=== PATIENT | female | born 1980 | race African-American/Black ===

== ENCOUNTER 2022-12-22 13:45 | Inpatient (IN) | payer OTHER ==
[~2022-12-22] VITALS: Ht 165.1 cm; Wt 62.0 kg
[~2022-12-22 13:45] MED LIST: AMLO-258 PO; AMYL1CAP63 PO; DIPH25CA85 PO; HYDR-4723 PO; INSU100V37 SQ; LISI-893 PO; QUET200T PO; RISP2TAB45 PO; TRAZ-257 PO
[2022-12-22] MEDS ORDERED: SODIUM CHLORIDE 0.9% 1,000 ML IV ONE ×2 (14:30→18:00)
[2022-12-22] MEDS ORDERED: INSULIN REGULAR, HUMAN 100 UNITS/ML IVP ONE (14:30)
[2022-12-22 14:41] LABS: GLUCOMETER DEV NAME(LOC) ERT.5; GLUCOSE,POINT OF CARE > 600 MG/DL (70-110)
[2022-12-22 14:59] LABS: BASOPHILS % (AUTO) 0.4 % (0.0-2.0); EOSINOPHILS % (AUTO) 1.9 % (1.0-6.0); HEMATOCRIT 38.5 % (36-46); HEMOGLOBIN 12.5 g/dL (12.0-16.0); LYMPHOCYTES # (AUTO) 2.7 K/uL (1.0-4.8); LYMPHOCYTES % (AUTO) 27.7 % (22.0-44.0); MEAN CORPUSCULAR HEMOGLOBIN 28.6 pg (26.0-34.0); MEAN CORPUSCULAR HGB CONC 32.4 G/dL (31.0-37.0); MEAN CORPUSCULAR VOLUME 88 fL (80-100); MONOCYTES # (AUTO) 0.5 K/uL (0.1-1.0); MONOCYTES % (AUTO) 5.6 % (2.0-9.0); NEUTROPHILS # (AUTO) 6.3 K/uL (1.8-7.7); NEUTROPHILS % (AUTO) 64.4 % (40.0-70.0); PLATELET COUNT (AUTO) 162 K/uL (150-450); RED BLOOD CELL COUNT(AUTO) 4.37 MIL/uL (4.00-5.20); RED CELL DISTRIBUTION WIDTH 14.5 % (11.5-14.5)
[2022-12-22 15:15] LABS: ALANINE AMINOTRANSFERASE 26 U/L (12-78); ALBUMIN 3.4 g/dL (3.4-5.0); ALKALINE PHOSPHATASE 103 U/L (46-116); ANION GAP 11 mmol/L (8-16); ASPARTATE AMINOTRANSFERASE 12 U/L (15-37); BILIRUBIN,TOTAL 0.2 mg/dL (0.1-1.0); CARBON DIOXIDE 23 mmol/L (22-29); CHLORIDE 97 mmol/L (98-107); CREATININE 0.99 mg/dL (0.60-1.30); GLOMERULAR FILTR. RATE CALC > 60 mL/min (>60); POTASSIUM 4.3 mmol/L (3.5-5.1); SODIUM SERUM 131 mmol/L (136-145); TOTAL PROTEIN, SERUM 7.6 g/dL (6.4-8.2); UREA NITROGEN, BLOOD 10 mg/dL (7-18)
[2022-12-22 15:19] LABS: GLUCOSE,RANDOM 741 mg/dL (70-110)
[2022-12-22 15:22] LABS: ACETONE,BLOOD NEGATIVE (NEGATIVE)
[2022-12-22 15:46] LABS: ABG BASE EXCESS -4.9 mmol/L (-2.0-3.0); ABG METHEMOGLOBIN 0.2 % (0.0-1.5); ABG OXYGEN CONTENT 16.8 mL/dL (15.0-23.0); ABG OXYGEN SATURATION 96.8 % (95.0-98.0); ABG OXYHEMOGLOBIN 91.2 % (94.0-100.0); ABG PCO2 36 mmHg (35-45); PO2, ARTERIAL BG 93.5 mmHg (88.0-96.0); SOURCE, BLOOD GAS ARTERIAL; TEMPERATURE, FAHRENHEIT, BG 99.9 FAHREN (96.0-98.6)
[2022-12-22 15:47] LABS: ABG A-A DIFF O2 12.7 mmHg (10-20.0); ABG CARBOXYHEMOGLOBIN 5.6 % (0.0-1.5); SITE, BLOOD GAS LFT RADIAL
[2022-12-22 15:48] LABS: O2 DEVICE,BLOOD GAS ROOM AIR (ROOM AIR)
[2022-12-22 15:54] LABS: APPEARANCE,URINE CLEAR (CLEAR); BILIRUBIN,URINE NEGATIVE (NEGATIVE); GLUCOSE, URINE (UA) >=1000 mg/dL (NEGATIVE); KETONES,URINE NEGATIVE (NEGATIVE); LEUKOCYTE ESTERASE ,URINE NEGATIVE (NEGATIVE); NITRATE,URINE NEGATIVE (NEGATIVE); OCCULT BLOOD,URINE NEGATIVE (NEGATIVE); PH,URINE 5.5 (5.0-8.0); PROTEIN,URINE NEGATIVE (NEGATIVE); UROBILINOGEN,URINE <=1.0 mg/dL (<=1.0)
[2022-12-22 16:00] LABS: AMPHET/METH SCREEN,URINE NEGATIVE (NEGATIVE); BARBITURATE SCREEN, URINE NEGATIVE (NEGATIVE); BENZODIAZEPINES SCREEN,URINE NEGATIVE (NEGATIVE); CANNABINOID SCREEN,URINE NEGATIVE (NEGATIVE); COCAINE SCREEN,URINE NEGATIVE (NEGATIVE); METHADONE SCREEN, URINE NEGATIVE (NEGATIVE); OPIATE SCREEN,URINE NEGATIVE (NEGATIVE); PHENCYCLIDINE SCREEN,URINE NEGATIVE (NEGATIVE)
[2022-12-22 16:02] LABS: BACTERIA,URINE None Seen /HPF (None Seen); RBC,URINE None Seen /HPF (0-2); WBC,URINE None Seen /HPF (0-5)
[2022-12-22] MEDS ORDERED: ONDANSETRON HCL 4 MG/2 ML VIAL IVP ONE (16:15)
[2022-12-22] MEDS ORDERED: PB/HYOSCY/ATR/SCOP/LIDO/MAALOX 55 ML BOTTLE PO ONE (16:15)
[2022-12-22 16:41] LABS: HCG,QUANTITATIVE 2 mIU/mL (0-6); LIPASE 53 U/L (73-393)
[2022-12-22] MEDS ORDERED: ACETAMINOPHEN 325 MG TABLET PO PRN (18:00)
[2022-12-22] MEDS ORDERED: DEXTROSE 50%-WATER 25 GM/50 ML SYRINGE IVP PRN (18:00)
[2022-12-22] MEDS ORDERED: ONDANSETRON HCL 4 MG/2 ML VIAL IVP PRN (18:00)
[2022-12-22 18:21] LABS: GLUCOMETER DEV NAME(LOC) ERT.5; GLUCOSE,POINT OF CARE 327 MG/DL (70-110)
[2022-12-22 18:55] LABS: GLUCOSE,POINT OF CARE 347 MG/DL (70-110)
[2022-12-22] MEDS ORDERED: INSULIN GLARGINE,HUM.REC.ANLOG 100 UNITS/ML SQ SCH ×2 (21:00)
[2022-12-22 22:10] VITALS: BP 107/75
[2022-12-22] MEDS: DOCUSATE SODIUM 100 MG CAPSULE PO SCH (22:35)
[2022-12-22] MEDS: FAMOTIDINE 20 MG TABLET PO SCH (22:35)
[2022-12-22] MEDS: INSULIN LISPRO 100 UNITS/ML SQ PRN (22:36)
[2022-12-22] MEDS: MORPHINE SULFATE 2 MG/ML SYRINGE IVP PRN (22:42)
[2022-12-22] MEDS: HEPARIN SODIUM,PORCINE 5,000 UNITS/ML VIAL SQ SCH (22:47)
[2022-12-23] MEDS: MORPHINE SULFATE 2 MG/ML SYRINGE IVP PRN ×5 (03:35→21:02)
[2022-12-23 04:20] VITALS: BP 100/72
[2022-12-23] MEDS: INSULIN LISPRO 100 UNITS/ML SQ PRN ×3 (05:38→20:13)
[2022-12-23 07:11] VITALS: BP 104/71
[2022-12-23] MEDS: FAMOTIDINE 20 MG TABLET PO SCH ×2 (07:56→20:11)
[2022-12-23] MEDS: HEPARIN SODIUM,PORCINE 5,000 UNITS/ML VIAL SQ SCH ×2 (07:57→16:30)
[2022-12-23] MEDS: DOCUSATE SODIUM 100 MG CAPSULE PO SCH ×2 (07:57→20:11)
[2022-12-23 11:15] VITALS: BP 127/90
[2022-12-23] MEDS ORDERED: NALT50TA5 PO (11:49)
[2022-12-23] MEDS ORDERED: SERT-162 PO (11:49)
[2022-12-23] MEDS ORDERED: PALI234D IM (11:49)
[2022-12-23] MEDS ORDERED: GABA-1181 PO (11:49)
[2022-12-23 15:21] VITALS: BP 117/80
[2022-12-23] MEDS ORDERED: INSULIN LISPRO 100 UNITS/ML SQ ONE (17:30)
[2022-12-23 18:16] LABS: GLUCOMETER DEV NAME(LOC) 5S.1B; GLUCOSE,POINT OF CARE 262 MG/DL (70-110)
[2022-12-23 19:40] VITALS: BP 120/80
[2022-12-23] MEDS ORDERED: INSULIN GLARGINE,HUM.REC.ANLOG 100 UNITS/ML SQ SCH (21:00)
[2022-12-23 21:21] LABS: GLUCOMETER DEV NAME(LOC) 5N.2C; GLUCOSE,POINT OF CARE 332 MG/DL (70-110)
[2022-12-23 21:21] LABS: GLUCOMETER DEV NAME(LOC) 5N.2C; GLUCOSE,POINT OF CARE 528 MG/DL (70-110)
[2022-12-24 00:32] VITALS: BP 110/79
[2022-12-24] MEDS: MORPHINE SULFATE 2 MG/ML SYRINGE IVP PRN ×2 (02:00→08:04)
[2022-12-24 05:24] VITALS: BP 125/88
[2022-12-24] MEDS: INSULIN LISPRO 100 UNITS/ML SQ PRN ×4 (05:38→20:24)
[2022-12-24 07:46] VITALS: BP 106/73
[2022-12-24] MEDS: FAMOTIDINE 20 MG TABLET PO SCH ×2 (08:03→20:11)
[2022-12-24] MEDS: HEPARIN SODIUM,PORCINE 5,000 UNITS/ML VIAL SQ SCH ×3 (08:03→16:13)
[2022-12-24] MEDS: DOCUSATE SODIUM 100 MG CAPSULE PO SCH ×2 (08:06→20:11)
[2022-12-24] MEDS ORDERED: INSULIN GLARGINE,HUM.REC.ANLOG 100 UNITS/ML SQ SCH ×3 (09:00→21:00)
[2022-12-24] MEDS: SERTRALINE HCL 100 MG TABLET PO SCH (11:02)
[2022-12-24] MEDS: RisperiDONE 2 MG TABLET PO SCH ×2 (11:02→20:13)
[2022-12-24] MEDS: LORazepam 2 MG/ML VIAL IVP PRN ×2 (11:06→16:13)
[2022-12-24 11:15] VITALS: BP 119/80
[2022-12-24 15:14] VITALS: BP 140/80
[2022-12-24] MEDS: NICOTINE 21 MG/24 HOUR PATCH TD SCH (16:18)
[2022-12-24 20:29] VITALS: BP 142/99
[2022-12-24] MEDS ORDERED: TraZODone HCL 100 MG TABLET PO SCH (21:00)
[2022-12-24] MEDS ORDERED: QUEtiapine FUMARATE 200 MG TABLET PO SCH (21:00)
[2022-12-24 22:06] LABS: GLUCOMETER DEV NAME(LOC) 5N.2C; GLUCOSE,POINT OF CARE 311 MG/DL (70-110)
[2022-12-25 06:36] LABS: GLUCOMETER DEV NAME(LOC) 5N.1C; GLUCOSE,POINT OF CARE 353 MG/DL (70-110)
[2022-12-25 06:37] LABS: GLUCOMETER DEV NAME(LOC) 5N.1C; GLUCOSE,POINT OF CARE 256 MG/DL (70-110)
[2022-12-25 06:37] LABS: GLUCOMETER DEV NAME(LOC) 5N.1C; GLUCOSE,POINT OF CARE 192 MG/DL (70-110)
[2022-12-25] MEDS: DOCUSATE SODIUM 100 MG CAPSULE PO SCH (09:00)
[2022-12-25] MEDS ORDERED: INSULIN GLARGINE,HUM.REC.ANLOG 100 UNITS/ML SQ SCH (09:00)
[2022-12-25] MEDS: HEPARIN SODIUM,PORCINE 5,000 UNITS/ML VIAL SQ SCH ×2 (09:11)
[2022-12-25] MEDS: NICOTINE 21 MG/24 HOUR PATCH TD SCH (09:11)
[2022-12-25] MEDS: RisperiDONE 2 MG TABLET PO SCH (09:12)
[2022-12-25] MEDS: FAMOTIDINE 20 MG TABLET PO SCH (09:12)
[2022-12-25] MEDS: SERTRALINE HCL 100 MG TABLET PO SCH (09:12)
[2022-12-25 09:18] VITALS: BP 103/71
[2022-12-25] MEDS ORDERED: INSLAN SQ (09:56)
[2022-12-25] MEDS: INSULIN LISPRO 100 UNITS/ML SQ PRN (12:11)
[2022-12-25 17:27] LABS: GLUCOMETER DEV NAME(LOC) 5N.2C; GLUCOSE,POINT OF CARE 136 MG/DL (70-110)
[2022-12-25 20:16] LABS: GLUCOMETER DEV NAME(LOC) 5S.2C; GLUCOSE,POINT OF CARE 405 MG/DL (70-110)
[2022-12-25 20:16] LABS: GLUCOMETER DEV NAME(LOC) 5S.2C; GLUCOSE,POINT OF CARE 141 MG/DL (70-110)
[2022-12-25 20:31] LABS: GLUCOMETER DEV NAME(LOC) 5S.1B; GLUCOSE,POINT OF CARE 239 MG/DL (70-110)
== END 2022-12-25 13:10 | disposition home or self-care (01) | DRG 420 ==
LOC: EMS 13:51 → 5S 21:08
PROVIDERS: ADMIT Internal Medicine; ATTEND Internal Medicine
DX: E11.00 Type 2 diabetes mellitus with hyperosmolarity without nonketotic hyperglycemic-hyperosmolar coma (NKHHC) (principal); F25.1 Schizoaffective disorder, depressive type; K86.1 Other chronic pancreatitis; I10 Essential (primary) hypertension; F10.20 Alcohol dependence, uncomplicated; Z20.822 Contact with and (suspected) exposure to COVID-19; Y90.9 Presence of alcohol in blood, level not specified; Z79.4 Long term (current) use of insulin; Z91.199 Patient's noncompliance with other medical treatment and regimen due to unspecified reason; Z87.891 Personal history of nicotine dependence
CPT/HCPCS: 36600; 80053; 80307; 81001; 82009; 82805; 82962; 83690; 84484; 84702; 85025; 93005; 99285; G0480; J1644; J1815; J2060; J2270; J2405

== ENCOUNTER 2023-01-02 14:58 | Emergency (ER) | payer OTHER ==
[~2023-01-02] VITALS: Ht 160 cm; Wt 61.8 kg
[~2023-01-02 14:58] MED LIST changes: -AMLO-258 PO; -DIPH25CA85 PO; -HYDR-4723 PO; +INSLAN SQ; -INSU100V37 SQ; +SERT-162 PO; -TRAZ-257 PO
[2023-01-02 16:21] LABS: GLUCOSE,POINT OF CARE 217 MG/DL (70-110)
[2023-01-02] MEDS ORDERED: SODIUM CHLORIDE 0.9% 1,000 ML IV ONE ×2 (17:00→18:15)
[2023-01-02] MEDS ORDERED: ONDANSETRON HCL 4 MG/2 ML VIAL IVP ONE (17:00)
[2023-01-02] MEDS ORDERED: KETOROLAC TROMETHAMINE 30 MG/ML VIAL IVP ONE (17:00)
[2023-01-02 17:35] LABS: BASOPHILS % (AUTO) 1.2 % (0.0-2.0); EOSINOPHILS % (AUTO) 2.1 % (1.0-6.0); HEMATOCRIT 37.2 % (36-46); HEMOGLOBIN 11.9 g/dL (12.0-16.0); LYMPHOCYTES # (AUTO) 5.4 K/uL (1.0-4.8); MEAN CORPUSCULAR HGB CONC 32.1 G/dL (31.0-37.0); MEAN CORPUSCULAR VOLUME 87 fL (80-100); MONOCYTES # (AUTO) 0.7 K/uL (0.1-1.0); MONOCYTES % (AUTO) 5.8 % (2.0-9.0); NEUTROPHILS # (AUTO) 5.5 K/uL (1.8-7.7); NEUTROPHILS % (AUTO) 45.9 % (40.0-70.0); PLATELET COUNT (AUTO) 188 K/uL (150-450); RED BLOOD CELL COUNT(AUTO) 4.27 MIL/uL (4.00-5.20); RED CELL DISTRIBUTION WIDTH 14.1 % (11.5-14.5)
[2023-01-02 17:45] LABS: ANION GAP 8 mmol/L (8-16); CALCIUM, TOTAL 8.6 mg/dL (8.8-10.5); CARBON DIOXIDE 27 mmol/L (22-29); CHLORIDE 103 mmol/L (98-107); CREATININE 0.56 mg/dL (0.60-1.30); GLOMERULAR FILTR. RATE CALC > 60 mL/min (>60); GLUCOSE,RANDOM 167 mg/dL (70-110); POTASSIUM 3.8 mmol/L (3.5-5.1); SODIUM SERUM 138 mmol/L (136-145); UREA NITROGEN, BLOOD 18 mg/dL (7-18)
[2023-01-02 17:56] LABS: ALANINE AMINOTRANSFERASE 24 U/L (12-78); ALBUMIN 3.4 g/dL (3.4-5.0); ALKALINE PHOSPHATASE 89 U/L (46-116); ASPARTATE AMINOTRANSFERASE 25 U/L (15-37); HCG,QUANTITATIVE 2 mIU/mL (0-6); LIPASE 41 U/L (73-393); TOTAL PROTEIN, SERUM 7.7 g/dL (6.4-8.2)
[2023-01-02 18:07] LABS: BILIRUBIN,TOTAL < 0.1 mg/dL (0.1-1.0)
[2023-01-02 19:28] VITALS: BP 123/87
[2023-01-02] MEDS ORDERED: ONDA-104 PO (19:28)
[2023-01-02] MEDS ORDERED: IBUP-1492 PO (19:30)
== END 2023-01-02 19:40 | disposition home or self-care (01) ==
LOC: EMS 15:10
DX: R10.9 Unspecified abdominal pain (principal); F10.10 Alcohol abuse, uncomplicated; E11.9 Type 2 diabetes mellitus without complications; I10 Essential (primary) hypertension; F17.210 Nicotine dependence, cigarettes, uncomplicated; K80.20 Calculus of gallbladder without cholecystitis without obstruction; K92.2 Gastrointestinal hemorrhage, unspecified; K85.90 Acute pancreatitis without necrosis or infection, unspecified; Z98.890 Other specified postprocedural states
CPT/HCPCS: 99285; 74176; 96374; 96361; 96375; 80053; 82962; 83690; 84702; 85025; 36415; G0480; J1885; J2405; J7030

== ENCOUNTER 2023-03-07 21:45 | Emergency (ER) | payer OTHER ==
[~2023-03-07] VITALS: Ht 160 cm; Wt 67.0 kg
[~2023-03-07 21:45] MED LIST changes: +IBUP-1492 PO; +ONDA-104 PO
[2023-03-07] MEDS ORDERED: QUET300T2 PO (23:14)
[2023-03-07] MEDS ORDERED: CLON-592 PO (23:14)
[2023-03-07 23:27] LABS: GLUCOMETER DEV NAME(LOC) ERT.5
[2023-03-07 23:31] LABS: BASOPHILS % (AUTO) 0.7 % (0.0-2.0); HEMOGLOBIN 13.8 g/dL (12.0-16.0); LYMPHOCYTES # (AUTO) 4.7 K/uL (1.0-4.8); MONOCYTES # (AUTO) 0.4 K/uL (0.1-1.0); NEUTROPHILS # (AUTO) 3.5 K/uL (1.8-7.7); NEUTROPHILS % (AUTO) 39.8 % (40.0-70.0)
[2023-03-07 23:35] LABS: EOSINOPHILS % (AUTO) 1.8 % (1.0-6.0); HEMATOCRIT 41.5 % (36-46); LYMPHOCYTES % (AUTO) 53.2 % (22.0-44.0); MEAN CORPUSCULAR HEMOGLOBIN 29.4 pg (26.0-34.0); MEAN CORPUSCULAR HGB CONC 33.2 G/dL (31.0-37.0); MEAN CORPUSCULAR VOLUME 89 fL (80-100); MONOCYTES % (AUTO) 4.5 % (2.0-9.0); PLATELET COUNT (AUTO) 166 K/uL (150-450); RED BLOOD CELL COUNT(AUTO) 4.69 MIL/uL (4.00-5.20); RED CELL DISTRIBUTION WIDTH 14.8 % (11.5-14.5)
[2023-03-07 23:36] LABS: APPEARANCE,URINE CLEAR (CLEAR); BILIRUBIN,URINE NEGATIVE (NEGATIVE); GLUCOSE, URINE (UA) NEGATIVE (NEGATIVE); KETONES,URINE NEGATIVE (NEGATIVE); LEUKOCYTE ESTERASE ,URINE SMALL (NEGATIVE); NITRATE,URINE NEGATIVE (NEGATIVE); OCCULT BLOOD,URINE NEGATIVE (NEGATIVE); PROTEIN,URINE NEGATIVE (NEGATIVE); SPECIFIC GRAVITIY, URINE 1.005 (1.003-1.030); UROBILINOGEN,URINE <=1.0 mg/dL (<=1.0)
[2023-03-07 23:40] LABS: ANION GAP 9 mmol/L (8-16); CALCIUM, TOTAL 8.8 mg/dL (8.8-10.5); CARBON DIOXIDE 29 mmol/L (22-29); CHLORIDE 99 mmol/L (98-107); CREATININE 0.62 mg/dL (0.60-1.30); GLOMERULAR FILTR. RATE CALC > 60 mL/min (>60); GLUCOSE,RANDOM 245 mg/dL (70-110); POTASSIUM 3.4 mmol/L (3.5-5.1); SODIUM SERUM 137 mmol/L (136-145)
[2023-03-07 23:47] LABS: BACTERIA,URINE None Seen /HPF (None Seen); RBC,URINE 0-2 /HPF (0-2); SQUAMOUS EPITHELIAL CELL,UR Moderate /LPF (None Seen)
[2023-03-07 23:51] LABS: ALANINE AMINOTRANSFERASE 31 U/L (12-78); ALBUMIN 3.5 g/dL (3.4-5.0); ALKALINE PHOSPHATASE 148 U/L (46-116); ASPARTATE AMINOTRANSFERASE 23 U/L (15-37); BILIRUBIN,TOTAL 0.1 mg/dL (0.1-1.0); HCG,QUANTITATIVE < 1 mIU/mL (0-6); LIPASE 42 U/L (73-393); TOTAL PROTEIN, SERUM 8.4 g/dL (6.4-8.2)
[2023-03-08] MEDS ORDERED: SODIUM CHLORIDE 0.9% 1,000 ML IV ONE (01:30)
[2023-03-08] MEDS ORDERED: FAMOTIDINE 20 MG/2 ML VIAL IVP ONE (01:30)
[2023-03-08 01:40] LABS: AMPHET/METH SCREEN,URINE NEGATIVE (NEGATIVE); BARBITURATE SCREEN, URINE NEGATIVE (NEGATIVE); BENZODIAZEPINES SCREEN,URINE NEGATIVE (NEGATIVE); CANNABINOID SCREEN,URINE NEGATIVE (NEGATIVE); COCAINE SCREEN,URINE NEGATIVE (NEGATIVE); METHADONE SCREEN, URINE NEGATIVE (NEGATIVE); OPIATE SCREEN,URINE NEGATIVE (NEGATIVE); PHENCYCLIDINE SCREEN,URINE NEGATIVE (NEGATIVE)
[2023-03-08] MEDS ORDERED: HYDROmorphone HCL 2 MG/ML SYRINGE IVP ONE (04:00)
[2023-03-08 05:20] VITALS: BP 135/86; PULSE 72; RESP 17; TEMP 98.3
== END 2023-03-08 05:20 | disposition home or self-care (01) ==
LOC: EMS 21:53
DX: R10.13 Epigastric pain (principal); K86.1 Other chronic pancreatitis; F10.20 Alcohol dependence, uncomplicated; E11.9 Type 2 diabetes mellitus without complications; I10 Essential (primary) hypertension; F17.210 Nicotine dependence, cigarettes, uncomplicated; Z98.890 Other specified postprocedural states; Y90.9 Presence of alcohol in blood, level not specified
CPT/HCPCS: 99285; 80053; 82962; 83690; 84702; 85025; 36415; 80307; 81001; 74176; 96374; 96361; 96375; J3490; J1170; J7030; G0480

== ENCOUNTER 2023-04-24 20:46 | Emergency (ER) | payer OTHER ==
[~2023-04-24] VITALS: Ht 165.1 cm; Wt 85.0 kg
[~2023-04-24 20:46] MED LIST changes: -AMYL1CAP63 PO; +CLON-592 PO; -IBUP-1492 PO; -QUET200T PO; +QUET300T2 PO; -RISP2TAB45 PO; -SERT-162 PO
[2023-04-24 21:29] LABS: BASOPHILS % (AUTO) 0.5 % (0.0-2.0); EOSINOPHILS % (AUTO) 2.3 % (1.0-6.0); HEMATOCRIT 39.3 % (36-46); HEMOGLOBIN 12.7 g/dL (12.0-16.0); LYMPHOCYTES # (AUTO) 5.5 K/uL (1.0-4.8); MEAN CORPUSCULAR HEMOGLOBIN 29.3 pg (26.0-34.0); MEAN CORPUSCULAR HGB CONC 32.3 G/dL (31.0-37.0); MEAN CORPUSCULAR VOLUME 91 fL (80-100); MONOCYTES # (AUTO) 0.8 K/uL (0.1-1.0); NEUTROPHILS # (AUTO) 4.3 K/uL (1.8-7.7); NEUTROPHILS % (AUTO) 39.2 % (40.0-70.0); PLATELET COUNT (AUTO) 140 K/uL (150-450); RED BLOOD CELL COUNT(AUTO) 4.34 MIL/uL (4.00-5.20); RED CELL DISTRIBUTION WIDTH 13.9 % (11.5-14.5)
[2023-04-24 21:50] LABS: ALANINE AMINOTRANSFERASE 16 U/L (12-78); ALBUMIN 2.9 g/dL (3.4-5.0); ALKALINE PHOSPHATASE 119 U/L (46-116); ANION GAP 13 mmol/L (8-16); ASPARTATE AMINOTRANSFERASE 14 U/L (15-37); BILIRUBIN,TOTAL 0.1 mg/dL (0.1-1.0); CALCIUM, TOTAL 8.9 mg/dL (8.8-10.5); CARBON DIOXIDE 22 mmol/L (22-29); CHLORIDE 102 mmol/L (98-107); CREATININE 0.61 mg/dL (0.60-1.30); GLOMERULAR FILTR. RATE CALC > 60 mL/min (>60); GLUCOSE,RANDOM 162 mg/dL (70-110); HCG,QUANTITATIVE < 1 mIU/mL (0-6); LIPASE 13 U/L (16-77); SODIUM SERUM 137 mmol/L (136-145); TOTAL PROTEIN, SERUM 6.7 g/dL (6.4-8.2)
[2023-04-24 21:53] LABS: POTASSIUM 2.9 mmol/L (3.5-5.1)
[2023-04-24] MEDS ORDERED: POTASSIUM CHLORIDE 20 MEQ ER TABLET PO ONE (22:15)
[2023-04-24] MEDS ORDERED: KETOROLAC TROMETHAMINE 30 MG/ML VIAL IVP ONE (22:30)
[2023-04-24] MEDS ORDERED: MAG HYDROX/AL HYDROX/SIMETH 30 ML SUSP UDCUP PO ONE (22:30)
[2023-04-24] MEDS ORDERED: ONDANSETRON HCL 4 MG/2 ML VIAL IVP ONE (22:30)
[2023-04-24] MEDS ORDERED: FAMOTIDINE 20 MG/2 ML VIAL IVP ONE (22:30)
[2023-04-25 00:36] VITALS: BP 110/68; PULSE 76; RESP 17; TEMP 97
== END 2023-04-25 00:58 | disposition home or self-care (01) ==
LOC: EMS 20:46
DX: K80.20 Calculus of gallbladder without cholecystitis without obstruction (principal); R10.13 Epigastric pain; F10.20 Alcohol dependence, uncomplicated; E11.9 Type 2 diabetes mellitus without complications; I10 Essential (primary) hypertension; F17.210 Nicotine dependence, cigarettes, uncomplicated; Z98.890 Other specified postprocedural states; Y90.9 Presence of alcohol in blood, level not specified
CPT/HCPCS: 99285; 96374; 76700; 96375; 80053; 83690; 84702; 85025; 36415; G0480; J3490; J1885; J2405

== ENCOUNTER 2023-05-05 21:39 | Emergency (ER) | payer MEDICAID, OTHER ==
[~2023-05-05] VITALS: Ht 160 cm; Wt 68.6 kg
[2023-05-05] MEDS ORDERED: ATOR40TA71 PO (22:27)
[2023-05-05] MEDS ORDERED: SERT-439 PO (22:27)
[2023-05-05] MEDS ORDERED: CLOZ25TA10 PO (22:27)
[2023-05-05] MEDS ORDERED: TRAZ-283 PO (22:27)
[2023-05-05] MEDS ORDERED: METR-172 PO (22:27)
[2023-05-05] MEDS ORDERED: GABA-1181 PO (22:27)
[2023-05-05] MEDS ORDERED: QUET50TA24 PO (22:27)
[2023-05-05] MEDS ORDERED: TRAZ-252 PO (22:27)
[2023-05-05] MEDS ORDERED: METF-446 PO (22:27)
[2023-05-05] MEDS ORDERED: CLOZ100T11 PO (22:27)
[2023-05-05] MEDS ORDERED: CHOL25TA4 PO (22:27)
[2023-05-05] MEDS ORDERED: GABA600T10 PO (22:27)
[2023-05-06 01:51] LABS: BASOPHILS % (AUTO) 0.4 % (0.0-2.0); EOSINOPHILS % (AUTO) 2.1 % (1.0-6.0); HEMATOCRIT 38.8 % (36-46); HEMOGLOBIN 12.8 g/dL (12.0-16.0); LYMPHOCYTES # (AUTO) 4.9 K/uL (1.0-4.8); LYMPHOCYTES % (AUTO) 40.9 % (22.0-44.0); MEAN CORPUSCULAR HEMOGLOBIN 29.9 pg (26.0-34.0); MEAN CORPUSCULAR VOLUME 91 fL (80-100); MONOCYTES # (AUTO) 0.6 K/uL (0.1-1.0); MONOCYTES % (AUTO) 5.4 % (2.0-9.0); NEUTROPHILS # (AUTO) 6.1 K/uL (1.8-7.7); NEUTROPHILS % (AUTO) 51.2 % (40.0-70.0); PLATELET COUNT (AUTO) 122 K/uL (150-450); RED BLOOD CELL COUNT(AUTO) 4.28 MIL/uL (4.00-5.20); RED CELL DISTRIBUTION WIDTH 13.7 % (11.5-14.5); WHITE BLOOD COUNT (AUTO) 11.9 K/uL (4.5-11.0)
[2023-05-06 02:00] LABS: ANION GAP 12 mmol/L (8-16); CALCIUM, TOTAL 9.2 mg/dL (8.8-10.5); CARBON DIOXIDE 24 mmol/L (22-29); CHLORIDE 95 mmol/L (98-107); GLOMERULAR FILTR. RATE CALC > 60 mL/min (>60); GLUCOSE,RANDOM 359 mg/dL (70-110); POTASSIUM 3.5 mmol/L (3.5-5.1); SODIUM SERUM 131 mmol/L (136-145); UREA NITROGEN, BLOOD 6 mg/dL (7-18)
[2023-05-06 02:02] LABS: ALCOHOL, BLOOD (SERUM) < 3 mg/dL (0-10)
[2023-05-06 02:06] LABS: ALANINE AMINOTRANSFERASE 56 U/L (12-78); ALKALINE PHOSPHATASE 139 U/L (46-116); ASPARTATE AMINOTRANSFERASE 32 U/L (15-37); BILIRUBIN,TOTAL 0.1 mg/dL (0.1-1.0); LIPASE 16 U/L (16-77); TOTAL PROTEIN, SERUM 6.8 g/dL (6.4-8.2)
[2023-05-06] MEDS ORDERED: KETOROLAC TROMETHAMINE 30 MG/ML VIAL IVP ONE (02:30)
[2023-05-06] MEDS ORDERED: INSULIN REGULAR, HUMAN 100 UNITS/ML SQ ONE (03:00)
[2023-05-06 04:59] VITALS: BP 133/88; PULSE 89; RESP 18; TEMP 97.3
[2023-05-06 11:16] LABS: GLUCOMETER DEV NAME(LOC) ERT.5; GLUCOSE,POINT OF CARE 348 MG/DL (70-110)
== END 2023-05-06 06:30 | disposition home or self-care (01) ==
LOC: EMS 21:39
DX: E11.65 Type 2 diabetes mellitus with hyperglycemia (principal); R10.9 Unspecified abdominal pain; F10.20 Alcohol dependence, uncomplicated; I10 Essential (primary) hypertension; F17.210 Nicotine dependence, cigarettes, uncomplicated; Z98.890 Other specified postprocedural states; Y90.9 Presence of alcohol in blood, level not specified
CPT/HCPCS: 99284; 80053; 82962; 83690; 85025; 36415; 96374; 93005; 96372; G0480; J1885; J1815

== ENCOUNTER 2023-05-20 16:09 | Emergency (ER) | payer MEDICAID ==
[~2023-05-20] VITALS: Ht 160 cm; Wt 68.6 kg
[~2023-05-20 16:09] MED LIST changes: +ATOR40TA71 PO; +CHOL25TA4 PO; +CLOZ25TA10 PO; +GABA-1181 PO; +GABA600T10 PO; +METF-446 PO; +METR-172 PO; +QUET50TA24 PO; +SERT-439 PO; +TRAZ-252 PO; +TRAZ-283 PO
[2023-05-20 16:13] VITALS: TEMP 98.6
[2023-05-20] MEDS ORDERED: QUET200T PO (16:15)
[2023-05-20] MEDS ORDERED: AMLO2.5T96 PO (16:15)
[2023-05-20 17:26] LABS: BASOPHILS % (AUTO) 0.7 % (0.0-2.0); HEMATOCRIT 41.2 % (36-46); HEMOGLOBIN 13.7 g/dL (12.0-16.0); LYMPHOCYTES # (AUTO) 4.5 K/uL (1.0-4.8); MEAN CORPUSCULAR HEMOGLOBIN 30.2 pg (26.0-34.0); MEAN CORPUSCULAR HGB CONC 33.3 G/dL (31.0-37.0); MEAN CORPUSCULAR VOLUME 91 fL (80-100); MONOCYTES # (AUTO) 0.5 K/uL (0.1-1.0); MONOCYTES % (AUTO) 3.7 % (2.0-9.0); NEUTROPHILS # (AUTO) 7.3 K/uL (1.8-7.7); NEUTROPHILS % (AUTO) 58.6 % (40.0-70.0); PLATELET COUNT (AUTO) 120 K/uL (150-450); RED BLOOD CELL COUNT(AUTO) 4.54 MIL/uL (4.00-5.20); RED CELL DISTRIBUTION WIDTH 13.8 % (11.5-14.5); WHITE BLOOD COUNT (AUTO) 12.4 K/uL (4.5-11.0)
[2023-05-20] MEDS ORDERED: SODIUM CHLORIDE 0.9% 1,000 ML IV ONE (17:30)
[2023-05-20 17:45] LABS: ALANINE AMINOTRANSFERASE 79 U/L (12-78); ALBUMIN 3.4 g/dL (3.4-5.0); ALKALINE PHOSPHATASE 165 U/L (46-116); ANION GAP 16 mmol/L (8-16); ASPARTATE AMINOTRANSFERASE 46 U/L (15-37); BILIRUBIN,TOTAL 0.2 mg/dL (0.1-1.0); CALCIUM, TOTAL 8.7 mg/dL (8.8-10.5); CARBON DIOXIDE 21 mmol/L (22-29); CHLORIDE 95 mmol/L (98-107); CREATININE 0.68 mg/dL (0.60-1.30); GLOMERULAR FILTR. RATE CALC > 60 mL/min (>60); HCG,QUANTITATIVE < 1 mIU/mL (0-6); LIPASE 14 U/L (16-77); SODIUM SERUM 132 mmol/L (136-145); TOTAL PROTEIN, SERUM 7.5 g/dL (6.4-8.2); UREA NITROGEN, BLOOD 8 mg/dL (7-18)
[2023-05-20 17:54] LABS: GLUCOSE,RANDOM 412 mg/dL (70-110)
[2023-05-20] MEDS ORDERED: INSULIN REGULAR, HUMAN 100 UNITS/ML IVP ONE (18:30)
[2023-05-20] MEDS ORDERED: LABETALOL HCL 5 MG/ML 20 ML VIAL IVP ONE (19:00)
[2023-05-20] MEDS ORDERED: HYDROmorphone HCL 2 MG/ML SYRINGE IVP ONE (20:15)
[2023-05-20 21:37] VITALS: BP 156/110; PULSE 88; RESP 16
[2023-05-20 21:53] LABS: APPEARANCE,URINE CLEAR (CLEAR); BILIRUBIN,URINE NEGATIVE (NEGATIVE); COLOR,URINE COLORLESS (YELLOW); GLUCOSE, URINE (UA) 300-500 mg/dL (NEGATIVE); KETONES,URINE NEGATIVE (NEGATIVE); LEUKOCYTE ESTERASE ,URINE NEGATIVE (NEGATIVE); NITRATE,URINE NEGATIVE (NEGATIVE); OCCULT BLOOD,URINE NEGATIVE (NEGATIVE); PROTEIN,URINE NEGATIVE (NEGATIVE); SPECIFIC GRAVITIY, URINE 1.006 (1.003-1.030); UROBILINOGEN,URINE <=1.0 mg/dL (<=1.0)
[2023-05-20 22:02] LABS: ALCOHOL, URINE DRUG SCREEN NEGATIVE (NEGATIVE); AMPHET/METH SCREEN,URINE NEGATIVE (NEGATIVE); BARBITURATE SCREEN, URINE NEGATIVE (NEGATIVE); BENZODIAZEPINES SCREEN,URINE NEGATIVE (NEGATIVE); CANNABINOID SCREEN,URINE NEGATIVE (NEGATIVE); COCAINE SCREEN,URINE NEGATIVE (NEGATIVE); METHADONE SCREEN, URINE NEGATIVE (NEGATIVE); OPIATE SCREEN,URINE POSITIVE (NEGATIVE); PHENCYCLIDINE SCREEN,URINE NEGATIVE (NEGATIVE)
[2023-05-20 22:08] LABS: BACTERIA,URINE None Seen /HPF (None Seen); RBC,URINE None Seen /HPF (0-2); SQUAMOUS EPITHELIAL CELL,UR Rare /LPF (None Seen); WBC,URINE 0-2 /HPF (0-5)
[2023-05-20] MEDS ORDERED: FAMOTIDINE 40 MG in SODIUM CHLORIDE 0.9% 100 ML IV ONE (22:15)
[2023-05-20] MEDS ORDERED: FAMO20 PO (22:29)
== END 2023-05-20 22:55 | disposition home or self-care (01) ==
LOC: EMS 16:09
DX: K86.0 Alcohol-induced chronic pancreatitis (principal); F10.20 Alcohol dependence, uncomplicated; R10.84 Generalized abdominal pain; E11.9 Type 2 diabetes mellitus without complications; I10 Essential (primary) hypertension; F17.210 Nicotine dependence, cigarettes, uncomplicated; Z98.890 Other specified postprocedural states; Y90.9 Presence of alcohol in blood, level not specified
CPT/HCPCS: 99285; 74176; 96365; 96375; 76705; 96361; 80053; 82009; 83690; 84702; 85025; 36415; 80307; 81001; 82962; J3490 ×2; J1170; J1815; J7030; J7050; G0480

== ENCOUNTER 2023-05-24 15:45 | Emergency (ER) | payer MEDICAID ==
[~2023-05-24] VITALS: Ht 160 cm; Wt 68.6 kg
[~2023-05-24 15:45] MED LIST changes: +AMLO2.5T96 PO; -ATOR40TA71 PO; +FAMO20 PO; -GABA-1181 PO; -METR-172 PO; -ONDA-104 PO; +QUET200T PO; -QUET300T2 PO; -QUET50TA24 PO; -TRAZ-252 PO
[2023-05-24] MEDS ORDERED: MORPHINE SULFATE 2 MG/ML SYRINGE IVP ONE ×2 (18:15→20:15)
[2023-05-24] MEDS ORDERED: ONDANSETRON HCL 4 MG/2 ML VIAL IVP ONE (18:15)
[2023-05-24] MEDS ORDERED: SODIUM CHLORIDE 0.9% 1,000 ML IV ONE (18:15)
[2023-05-24 18:47] LABS: BASOPHILS % (AUTO) 0.6 % (0.0-2.0); EOSINOPHILS % (AUTO) 1.8 % (1.0-6.0); HEMATOCRIT 36.3 % (36-46); HEMOGLOBIN 12.1 g/dL (12.0-16.0); LYMPHOCYTES # (AUTO) 5.1 K/uL (1.0-4.8); LYMPHOCYTES % (AUTO) 49.2 % (22.0-44.0); MEAN CORPUSCULAR HEMOGLOBIN 30.4 pg (26.0-34.0); MEAN CORPUSCULAR HGB CONC 33.3 G/dL (31.0-37.0); MEAN CORPUSCULAR VOLUME 91 fL (80-100); MONOCYTES # (AUTO) 0.5 K/uL (0.1-1.0); MONOCYTES % (AUTO) 5.1 % (2.0-9.0); NEUTROPHILS # (AUTO) 4.5 K/uL (1.8-7.7); NEUTROPHILS % (AUTO) 43.3 % (40.0-70.0); PLATELET COUNT (AUTO) 111 K/uL (150-450); RED BLOOD CELL COUNT(AUTO) 3.98 MIL/uL (4.00-5.20); WHITE BLOOD COUNT (AUTO) 10.4 K/uL (4.5-11.0)
[2023-05-24 18:55] LABS: ANION GAP 13 mmol/L (8-16); CALCIUM, TOTAL 8.4 mg/dL (8.8-10.5); CARBON DIOXIDE 24 mmol/L (22-29); CHLORIDE 104 mmol/L (98-107); CREATININE 0.66 mg/dL (0.60-1.30); GLOMERULAR FILTR. RATE CALC > 60 mL/min (>60); GLUCOSE,RANDOM 291 mg/dL (70-110); POTASSIUM 3.3 mmol/L (3.5-5.1); SODIUM SERUM 141 mmol/L (136-145); UREA NITROGEN, BLOOD 4 mg/dL (7-18)
[2023-05-24 19:06] LABS: ALANINE AMINOTRANSFERASE 34 U/L (12-78); ALBUMIN 2.8 g/dL (3.4-5.0); ALKALINE PHOSPHATASE 123 U/L (46-116); ASPARTATE AMINOTRANSFERASE 24 U/L (15-37); BILIRUBIN,TOTAL 0.1 mg/dL (0.1-1.0); HCG,QUANTITATIVE < 1 mIU/mL (0-6); LIPASE 15 U/L (16-77); TOTAL PROTEIN, SERUM 6.2 g/dL (6.4-8.2)
[2023-05-24 19:30] VITALS: BP 112/60; PULSE 89; RESP 17; TEMP 98.5
[2023-05-24 19:41] LABS: ALCOHOL, BLOOD (SERUM) 134 mg/dL (0-10)
[2023-05-25] MEDS ORDERED: FAMO20 PO (05:36)
== END 2023-05-24 20:52 | disposition home or self-care (01) ==
LOC: EMS 15:46
DX: K86.1 Other chronic pancreatitis (principal); F10.10 Alcohol abuse, uncomplicated; E11.9 Type 2 diabetes mellitus without complications; I10 Essential (primary) hypertension; K80.20 Calculus of gallbladder without cholecystitis without obstruction; F17.210 Nicotine dependence, cigarettes, uncomplicated
CPT/HCPCS: 99284; 96374; 96361; 96375; 80053; 83690; 84702; 85025; 36415; 96376; G0480; J2270; J2405; J7030

== ENCOUNTER 2023-05-24 23:36 | Emergency (ER) | payer MEDICAID ==
[~2023-05-24] VITALS: Ht 160 cm; Wt 69.0 kg
[2023-05-25 04:30] VITALS: BP 140/89; PULSE 88; RESP 16; TEMP 98
[2023-05-25] MEDS ORDERED: FAMOTIDINE 20 MG TABLET PO ONE (05:00)
[2023-05-25] MEDS ORDERED: PB/HYOSCY/ATR/SCOP/LIDO/MAALOX 55 ML BOTTLE PO ONE (05:00)
[2023-05-25] MEDS ORDERED: FAMO20 PO (05:36)
== END 2023-05-25 06:43 | disposition home or self-care (01) ==
LOC: EMS 23:37
DX: R10.9 Unspecified abdominal pain (principal); K86.0 Alcohol-induced chronic pancreatitis; E11.9 Type 2 diabetes mellitus without complications; I10 Essential (primary) hypertension; F17.210 Nicotine dependence, cigarettes, uncomplicated; Z98.890 Other specified postprocedural states
CPT/HCPCS: 99283

== ENCOUNTER 2023-06-07 14:17 | Emergency (ER) | payer MEDICAID ==
[~2023-06-07] VITALS: Ht 165.1 cm; Wt 75.0 kg
[2023-06-07] MEDS ORDERED: ACETAMINOPHEN 500 MG TABLET PO ONE (15:00)
[2023-06-07] MEDS ORDERED: SODIUM CHLORIDE 0.9% 1,000 ML IV ONE ×2 (15:00→16:30)
[2023-06-07] MEDS ORDERED: ONDANSETRON HCL 4 MG/2 ML VIAL IVP ONE (15:00)
[2023-06-07] MEDS ORDERED: MAG HYDROX/AL HYDROX/SIMETH 30 ML SUSP UDCUP PO ONE (15:15)
[2023-06-07] MEDS ORDERED: FAMOTIDINE 20 MG/2 ML VIAL IVP ONE (15:15)
[2023-06-07 15:29] LABS: BASOPHILS % (AUTO) 1.2 % (0.0-2.0); EOSINOPHILS % (AUTO) 1.7 % (1.0-6.0); HEMATOCRIT 38.6 % (36-46); HEMOGLOBIN 12.6 g/dL (12.0-16.0); LYMPHOCYTES # (AUTO) 4.4 K/uL (1.0-4.8); LYMPHOCYTES % (AUTO) 38.4 % (22.0-44.0); MEAN CORPUSCULAR HEMOGLOBIN 29.9 pg (26.0-34.0); MEAN CORPUSCULAR HGB CONC 32.5 G/dL (31.0-37.0); MEAN CORPUSCULAR VOLUME 92 fL (80-100); MONOCYTES # (AUTO) 0.5 K/uL (0.1-1.0); MONOCYTES % (AUTO) 4.4 % (2.0-9.0); NEUTROPHILS # (AUTO) 6.2 K/uL (1.8-7.7); NEUTROPHILS % (AUTO) 54.3 % (40.0-70.0); RED BLOOD CELL COUNT(AUTO) 4.21 MIL/uL (4.00-5.20); RED CELL DISTRIBUTION WIDTH 13.7 % (11.5-14.5); WHITE BLOOD COUNT (AUTO) 11.5 K/uL (4.5-11.0)
[2023-06-07 15:38] LABS: ACETONE,BLOOD NEGATIVE (NEGATIVE)
[2023-06-07 15:41] LABS: ALCOHOL, BLOOD (SERUM) 47 mg/dL (0-10)
[2023-06-07 15:53] LABS: ALANINE AMINOTRANSFERASE 63 U/L (12-78); ALBUMIN 3.4 g/dL (3.4-5.0); ALKALINE PHOSPHATASE 163 U/L (46-116); ANION GAP 13 mmol/L (8-16); ASPARTATE AMINOTRANSFERASE 31 U/L (15-37); BILIRUBIN,TOTAL 0.1 mg/dL (0.1-1.0); CALCIUM, TOTAL 8.7 mg/dL (8.8-10.5); CARBON DIOXIDE 22 mmol/L (22-29); CHLORIDE 93 mmol/L (98-107); CREATININE 0.72 mg/dL (0.60-1.30); GLOMERULAR FILTR. RATE CALC > 60 mL/min (>60); LIPASE 17 U/L (16-77); SODIUM SERUM 128 mmol/L (136-145); TOTAL PROTEIN, SERUM 7.9 g/dL (6.4-8.2); UREA NITROGEN, BLOOD 7 mg/dL (7-18)
[2023-06-07 15:55] LABS: GLUCOSE,RANDOM 501 mg/dL (70-110); LACTIC ACID 3.1 mmol/L (0.4-2.0)
[2023-06-07 15:57] LABS: PLATELET COUNT (AUTO) 111 K/uL (150-450)
[2023-06-07] MEDS ORDERED: INSULIN REGULAR, HUMAN 100 UNITS/ML IVP ONE (16:30)
[2023-06-07] MEDS ORDERED: ONDA-104 PO (17:05)
[2023-06-07 17:11] VITALS: BP 149/108; PULSE 90; RESP 16; TEMP 98.3
[2023-06-07 17:11] LABS: GLUCOMETER DEV NAME(LOC) ER.6; GLUCOSE,POINT OF CARE 356 MG/DL (70-110)
== END 2023-06-07 17:18 | disposition left against medical advice (07) ==
LOC: EMS 14:50
DX: S09.90XA Unspecified injury of head, initial encounter (principal); E87.20 Acidosis, unspecified; E11.65 Type 2 diabetes mellitus with hyperglycemia; I10 Essential (primary) hypertension; F17.210 Nicotine dependence, cigarettes, uncomplicated; F10.90 Alcohol use, unspecified, uncomplicated; Z98.890 Other specified postprocedural states; W19.XXXA Unspecified fall, initial encounter; Y93.89 Activity, other specified; Y92.89 Other specified places as the place of occurrence of the external cause; Y99.8 Other external cause status
CPT/HCPCS: 99291; 96374; 96361; 96375; 80053; 82009; 82962; 83605; 83690; 84703; 85025; 36415; G0480; J3490; J2405; J7030

== ENCOUNTER 2023-07-10 15:11 | Emergency (ER) | payer MEDICAID ==
[~2023-07-10] VITALS: Ht 157.5 cm; Wt 65.9 kg
[~2023-07-10 15:11] MED LIST changes: +ONDA-104 PO
[2023-07-10] MEDS ORDERED: AMLO10TA55 PO (15:27)
[2023-07-10] MEDS ORDERED: CLOZ100T11 PO (15:27)
[2023-07-10] MEDS ORDERED: PALI234D IM (15:27)
[2023-07-10] MEDS ORDERED: INSU200I4 SQ (15:27)
[2023-07-10] MEDS ORDERED: SODIUM CHLORIDE 0.9% 1,000 ML IV ONE (15:30)
[2023-07-10 15:39] LABS: BASOPHILS % (AUTO) 0.6 % (0.0-2.0); EOSINOPHILS % (AUTO) 0.1 % (1.0-6.0); HEMATOCRIT 38.2 % (36-46); HEMOGLOBIN 12.4 g/dL (12.0-16.0); LYMPHOCYTES # (AUTO) 2.1 K/uL (1.0-4.8); LYMPHOCYTES % (AUTO) 29.7 % (22.0-44.0); MEAN CORPUSCULAR HEMOGLOBIN 29.8 pg (26.0-34.0); MEAN CORPUSCULAR HGB CONC 32.5 G/dL (31.0-37.0); MEAN CORPUSCULAR VOLUME 92 fL (80-100); MONOCYTES # (AUTO) 0.2 K/uL (0.1-1.0); MONOCYTES % (AUTO) 2.4 % (2.0-9.0); NEUTROPHILS # (AUTO) 4.9 K/uL (1.8-7.7); NEUTROPHILS % (AUTO) 67.2 % (40.0-70.0); PLATELET COUNT (AUTO) 138 K/uL (150-450); RED BLOOD CELL COUNT(AUTO) 4.16 MIL/uL (4.00-5.20); RED CELL DISTRIBUTION WIDTH 14.4 % (11.5-14.5); WHITE BLOOD COUNT (AUTO) 7.2 K/uL (4.5-11.0)
[2023-07-10 15:50] LABS: ANION GAP 13 mmol/L (8-16); CALCIUM, TOTAL 8.9 mg/dL (8.8-10.5); CARBON DIOXIDE 24 mmol/L (22-29); CHLORIDE 102 mmol/L (98-107); CREATININE 0.52 mg/dL (0.60-1.30); GLOMERULAR FILTR. RATE CALC > 60 mL/min (>60); GLUCOSE,RANDOM 116 mg/dL (70-110); POTASSIUM 3.7 mmol/L (3.5-5.1); SODIUM SERUM 139 mmol/L (136-145); UREA NITROGEN, BLOOD 12 mg/dL (7-18)
[2023-07-10 16:01] LABS: ALANINE AMINOTRANSFERASE 58 U/L (12-78); ALKALINE PHOSPHATASE 125 U/L (46-116); ASPARTATE AMINOTRANSFERASE 74 U/L (15-37); BILIRUBIN,TOTAL 0.2 mg/dL (0.1-1.0); HCG,QUANTITATIVE < 1 mIU/mL (0-6); LIPASE 11 U/L (16-77); TOTAL PROTEIN, SERUM 7.4 g/dL (6.4-8.2)
[2023-07-10 16:21] LABS: GLUCOMETER DEV NAME(LOC) ER.6; GLUCOSE,POINT OF CARE 114 MG/DL (70-110)
[2023-07-10 16:32] LABS: COVID AG,FIA SOURCE NASAL SWAB
[2023-07-10 16:33] LABS: ALCOHOL, BLOOD (SERUM) 168 mg/dL (0-10)
[2023-07-10 16:50] LABS: SARS-COV2 (COVID) ANTIGEN,FIA Negative (Negative)
[2023-07-10 18:15] LABS: APPEARANCE,URINE CLEAR (CLEAR); BILIRUBIN,URINE NEGATIVE (NEGATIVE); COLOR,URINE LIGHT YELLOW (YELLOW); GLUCOSE, URINE (UA) NEGATIVE (NEGATIVE); KETONES,URINE NEGATIVE (NEGATIVE); LEUKOCYTE ESTERASE ,URINE NEGATIVE (NEGATIVE); NITRATE,URINE NEGATIVE (NEGATIVE); OCCULT BLOOD,URINE NEGATIVE (NEGATIVE); PH,URINE 5.5 (5.0-8.0); PH,URINE DRUG SCREEN 5.5 (5.0-8.0); SPECIFIC GRAVITIY, URINE 1.013 (1.003-1.030); UROBILINOGEN,URINE <=1.0 mg/dL (<=1.0)
[2023-07-10 18:21] LABS: ALCOHOL, URINE DRUG SCREEN POSITIVE (NEGATIVE); AMPHET/METH SCREEN,URINE NEGATIVE (NEGATIVE); BARBITURATE SCREEN, URINE NEGATIVE (NEGATIVE); BENZODIAZEPINES SCREEN,URINE NEGATIVE (NEGATIVE); CANNABINOID SCREEN,URINE NEGATIVE (NEGATIVE); COCAINE SCREEN,URINE NEGATIVE (NEGATIVE); METHADONE SCREEN, URINE NEGATIVE (NEGATIVE); OPIATE SCREEN,URINE NEGATIVE (NEGATIVE); PHENCYCLIDINE SCREEN,URINE NEGATIVE (NEGATIVE)
[2023-07-10 18:28] LABS: PROTEIN,URINE NEGATIVE (NEGATIVE)
[2023-07-10 19:46] LABS: GLUCOMETER DEV NAME(LOC) ER.6; GLUCOSE,POINT OF CARE 138 MG/DL (70-110)
[2023-07-10 22:42] VITALS: BP 148/101; PULSE 102; RESP 18; TEMP 97.6
== END 2023-07-10 23:42 | disposition home or self-care (01) ==
LOC: EMS 15:12
DX: F10.129 Alcohol abuse with intoxication, unspecified (principal); F25.9 Schizoaffective disorder, unspecified; E11.9 Type 2 diabetes mellitus without complications; I10 Essential (primary) hypertension; F17.210 Nicotine dependence, cigarettes, uncomplicated; Z98.890 Other specified postprocedural states; Z20.822 Contact with and (suspected) exposure to COVID-19
CPT/HCPCS: 99285; 96360; 70450; 71045; 87426; 80053; 82962; 83690; 84702; 85025; 36415; 80307; 81003; G0480

== ENCOUNTER 2023-09-26 08:28 | Emergency (ER) | payer MEDICAID ==
[~2023-09-26] VITALS: Ht 165.1 cm; Wt 61.4 kg
[~2023-09-26 08:28] MED LIST changes: +AMLO10TA55 PO; -AMLO2.5T96 PO; +AMYL1CAP45 PO; +ATOR40TA71 PO; -CLON-592 PO; -FAMO20 PO; -INSLAN SQ; +INSU200I4 SQ; +INSU3INS3 SQ; +NEED-462 SQ; -ONDA-104 PO; +PALI234D IM
[2023-09-26 08:48] VITALS: TEMP 98.9
[2023-09-26] MEDS ORDERED: CHOL10002 PO (08:49)
[2023-09-26] MEDS ORDERED: QUET400T13 PO (08:49)
[2023-09-26] MEDS ORDERED: GABA-1181 PO (08:49)
[2023-09-26] MEDS ORDERED: LISI10TA24 PO (08:49)
[2023-09-26] MEDS ORDERED: CLOZ100T11 PO (08:49)
[2023-09-26] MEDS ORDERED: IOHEXOL 9 MG/ML 500 ML BOTTLE PO ONE (11:15)
[2023-09-26] MEDS ORDERED: HYDROmorphone HCL 2 MG/ML SYRINGE IVP ONE (11:15)
[2023-09-26] MEDS ORDERED: ONDANSETRON HCL 4 MG/2 ML VIAL IVP ONE (11:15)
[2023-09-26] MEDS ORDERED: SODIUM CHLORIDE 0.9% 2,000 ML IV ONE (11:15)
[2023-09-26] MEDS ORDERED: SODIUM CHLORIDE 0.9% 100 ML ONE (11:49)
[2023-09-26] MEDS ORDERED: IOHEXOL 350 MG/ML 100 ML VIAL ONE (11:49)
[2023-09-26 12:51] LABS: APPEARANCE,URINE CLEAR (CLEAR); BILIRUBIN,URINE NEGATIVE (NEGATIVE); COLOR,URINE LIGHT YELLOW (YELLOW); GLUCOSE, URINE (UA) >=1000 mg/dL (NEGATIVE); KETONES,URINE NEGATIVE (NEGATIVE); LEUKOCYTE ESTERASE ,URINE NEGATIVE (NEGATIVE); NITRATE,URINE NEGATIVE (NEGATIVE); OCCULT BLOOD,URINE NEGATIVE (NEGATIVE); PROTEIN,URINE NEGATIVE (NEGATIVE); SPECIFIC GRAVITIY, URINE 1.019 (1.003-1.030); UROBILINOGEN,URINE <=1.0 mg/dL (<=1.0)
[2023-09-26 12:58] LABS: AMPHET/METH SCREEN,URINE NEGATIVE (NEGATIVE); BARBITURATE SCREEN, URINE NEGATIVE (NEGATIVE); BENZODIAZEPINES SCREEN,URINE NEGATIVE (NEGATIVE); CANNABINOID SCREEN,URINE NEGATIVE (NEGATIVE); COCAINE SCREEN,URINE NEGATIVE (NEGATIVE); METHADONE SCREEN, URINE NEGATIVE (NEGATIVE); OPIATE SCREEN,URINE NEGATIVE (NEGATIVE); PHENCYCLIDINE SCREEN,URINE NEGATIVE (NEGATIVE)
[2023-09-26 13:00] LABS: ALCOHOL, URINE DRUG SCREEN NEGATIVE (NEGATIVE)
[2023-09-26 13:10] LABS: BACTERIA,URINE None Seen /HPF (None Seen); RBC,URINE None Seen /HPF (0-2); SQUAMOUS EPITHELIAL CELL,UR Moderate /LPF (None Seen); WBC,URINE None Seen /HPF (0-5)
[2023-09-26 13:12] LABS: BASOPHILS % (AUTO) 1.2 % (0.0-2.0); HEMATOCRIT 36.8 % (36-46); HEMOGLOBIN 12.2 g/dL (12.0-16.0); LYMPHOCYTES # (AUTO) 3.5 K/uL (1.0-4.8); LYMPHOCYTES % (AUTO) 29.3 % (22.0-44.0); MEAN CORPUSCULAR HEMOGLOBIN 29.3 pg (26.0-34.0); MEAN CORPUSCULAR HGB CONC 33.1 G/dL (31.0-37.0); MEAN CORPUSCULAR VOLUME 89 fL (80-100); MONOCYTES # (AUTO) 0.5 K/uL (0.1-1.0); MONOCYTES % (AUTO) 4.5 % (2.0-9.0); NEUTROPHILS # (AUTO) 7.6 K/uL (1.8-7.7); PLATELET COUNT (AUTO) 148 K/uL (150-450); RED BLOOD CELL COUNT(AUTO) 4.15 MIL/uL (4.00-5.20); RED CELL DISTRIBUTION WIDTH 14.1 % (11.5-14.5); WHITE BLOOD COUNT (AUTO) 12.1 K/uL (4.5-11.0)
[2023-09-26 13:21] LABS: ANION GAP 6 mmol/L (8-16); CALCIUM, TOTAL 8.9 mg/dL (8.8-10.5); CARBON DIOXIDE 26 mmol/L (22-29); CHLORIDE 104 mmol/L (98-107); CREATININE 0.56 mg/dL (0.60-1.30); GLOMERULAR FILTR. RATE CALC > 60 mL/min (>60); GLUCOSE,RANDOM 315 mg/dL (70-110); SODIUM SERUM 136 mmol/L (136-145); UREA NITROGEN, BLOOD 5 mg/dL (7-18)
[2023-09-26 13:26] LABS: ALANINE AMINOTRANSFERASE 23 U/L (12-78); ALBUMIN 2.8 g/dL (3.4-5.0); ALKALINE PHOSPHATASE 102 U/L (46-116); ASPARTATE AMINOTRANSFERASE 19 U/L (15-37); BILIRUBIN,TOTAL 0.1 mg/dL (0.1-1.0); LIPASE < 10 U/L (16-77)
[2023-09-26 13:28] LABS: TROPONIN I-HIGH SENSITIVITY Less Than 4 ng/L (<51)
[2023-09-26 13:29] LABS: LACTIC ACID 1.4 mmol/L (0.4-2.0)
[2023-09-26 13:35] LABS: ALCOHOL, BLOOD (SERUM) < 3 mg/dL (0-10)
[2023-09-26 14:07] VITALS: BP 140/84; PULSE 91; RESP 14
[2023-09-26] MEDS ORDERED: ACET-66 PO (14:59)
[2023-09-26] MEDS ORDERED: TRAM-559 PO (14:59)
[2023-09-26] MEDS ORDERED: MAG30ORA11 PO (14:59)
[2023-09-26] MEDS ORDERED: OMEP20 PO (14:59)
== END 2023-09-26 15:11 | disposition home or self-care (01) ==
LOC: EMS 08:28
DX: K86.1 Other chronic pancreatitis (principal); F31.9 Bipolar disorder, unspecified; E11.43 Type 2 diabetes mellitus with diabetic autonomic (poly)neuropathy; E11.65 Type 2 diabetes mellitus with hyperglycemia; K31.84 Gastroparesis; R10.13 Epigastric pain; I10 Essential (primary) hypertension; F20.9 Schizophrenia, unspecified; F17.210 Nicotine dependence, cigarettes, uncomplicated; Z98.890 Other specified postprocedural states; Y90.9 Presence of alcohol in blood, level not specified
CPT/HCPCS: 99285; 74177; 96374; 96361; 96375; 80053; 82962; 83605; 83690; 84484; 85025; 36415; 93005; 80307; 81001; J1170; J2405; Q9967; J7030; J7050; G0480

== ENCOUNTER 2023-10-03 18:50 | Emergency (ER) | payer MEDICAID ==
[~2023-10-03] VITALS: Ht 160 cm; Wt 64.1 kg
[~2023-10-03 18:50] MED LIST changes: +ACET-66 PO; -AMYL1CAP45 PO; +CHOL10002 PO; -CHOL25TA4 PO; +CLOZ100T11 PO; -CLOZ25TA10 PO; +GABA-1181 PO; -GABA600T10 PO; -INSU200I4 SQ; -LISI-893 PO; +LISI10TA24 PO; +MAG30ORA11 PO; +OMEP20 PO; -QUET200T PO; +QUET400T13 PO; +TRAM-559 PO
[2023-10-03 19:04] VITALS: BP 111/86; PULSE 106; RESP 18; TEMP 98.5
[2023-10-03] MEDS ORDERED: FAMOTIDINE 20 MG/2 ML VIAL IVP ONE (19:15)
[2023-10-03] MEDS ORDERED: ONDANSETRON HCL 4 MG/2 ML VIAL IVP ONE (19:15)
[2023-10-03] MEDS ORDERED: SODIUM CHLORIDE 0.9% 1,000 ML IV ONE (19:15)
[2023-10-03] MEDS ORDERED: ACETAMINOPHEN 500 MG TABLET PO ONE (19:15)
[2023-10-03 19:35] LABS: BASOPHILS % (AUTO) 1.5 % (0.0-2.0); EOSINOPHILS % (AUTO) 1.6 % (1.0-6.0); HEMATOCRIT 40.3 % (36-46); HEMOGLOBIN 12.9 g/dL (12.0-16.0); LYMPHOCYTES # (AUTO) 4.3 K/uL (1.0-4.8); LYMPHOCYTES % (AUTO) 33.7 % (22.0-44.0); MEAN CORPUSCULAR HEMOGLOBIN 28.7 pg (26.0-34.0); MEAN CORPUSCULAR VOLUME 90 fL (80-100); MONOCYTES # (AUTO) 0.8 K/uL (0.1-1.0); MONOCYTES % (AUTO) 6.1 % (2.0-9.0); NEUTROPHILS # (AUTO) 7.2 K/uL (1.8-7.7); NEUTROPHILS % (AUTO) 57.1 % (40.0-70.0); PLATELET COUNT (AUTO) 207 K/uL (150-450); RED BLOOD CELL COUNT(AUTO) 4.49 MIL/uL (4.00-5.20); RED CELL DISTRIBUTION WIDTH 14.5 % (11.5-14.5); WHITE BLOOD COUNT (AUTO) 12.7 K/uL (4.5-11.0)
[2023-10-03 19:46] LABS: ACETONE,BLOOD NEGATIVE (NEGATIVE)
[2023-10-03 19:49] LABS: ALCOHOL, BLOOD (SERUM) < 3 mg/dL (0-10)
[2023-10-03 19:50] LABS: B-TYPE NATRIURETIC PEPTIDE 7 pg/mL (0-100)
[2023-10-03 19:51] LABS: ALANINE AMINOTRANSFERASE 20 U/L (12-78); ALBUMIN 3.1 g/dL (3.4-5.0); ALKALINE PHOSPHATASE 118 U/L (46-116); ANION GAP 10 mmol/L (8-16); ASPARTATE AMINOTRANSFERASE 18 U/L (15-37); BILIRUBIN,TOTAL 0.1 mg/dL (0.1-1.0); CALCIUM, TOTAL 9.3 mg/dL (8.8-10.5); CARBON DIOXIDE 25 mmol/L (22-29); CHLORIDE 99 mmol/L (98-107); CREATINE KINASE, TOTAL ONLY 64 U/L (26-192); CREATININE 1.07 mg/dL (0.60-1.30); GLOMERULAR FILTR. RATE CALC > 60 mL/min (>60); LIPASE < 10 U/L (16-77); POTASSIUM 4.4 mmol/L (3.5-5.1); SODIUM SERUM 134 mmol/L (136-145); TOTAL PROTEIN, SERUM 7.4 g/dL (6.4-8.2); TROPONIN I-HIGH SENSITIVITY 4 ng/L (<51); UREA NITROGEN, BLOOD 10 mg/dL (7-18)
[2023-10-03 19:54] LABS: GLUCOSE,RANDOM 568 mg/dL (70-110)
[2023-10-03 19:58] LABS: COVID AG,FIA SOURCE NASAL SWAB
[2023-10-03] MEDS ORDERED: INSULIN REGULAR, HUMAN 100 UNITS/ML IVP ONE (20:00)
[2023-10-03 20:05] LABS: APPEARANCE,URINE CLEAR (CLEAR); BILIRUBIN,URINE NEGATIVE (NEGATIVE); COLOR,URINE COLORLESS (YELLOW); GLUCOSE, URINE (UA) >=1000 mg/dL (NEGATIVE); KETONES,URINE NEGATIVE (NEGATIVE); LEUKOCYTE ESTERASE ,URINE NEGATIVE (NEGATIVE); NITRATE,URINE NEGATIVE (NEGATIVE); OCCULT BLOOD,URINE NEGATIVE (NEGATIVE); PROTEIN,URINE NEGATIVE (NEGATIVE); SPECIFIC GRAVITIY, URINE 1.026 (1.003-1.030); UROBILINOGEN,URINE <=1.0 mg/dL (<=1.0)
[2023-10-03 20:11] LABS: ALCOHOL, URINE DRUG SCREEN NEGATIVE (NEGATIVE); AMPHET/METH SCREEN,URINE NEGATIVE (NEGATIVE); BARBITURATE SCREEN, URINE NEGATIVE (NEGATIVE); BENZODIAZEPINES SCREEN,URINE NEGATIVE (NEGATIVE); CANNABINOID SCREEN,URINE NEGATIVE (NEGATIVE); COCAINE SCREEN,URINE NEGATIVE (NEGATIVE); METHADONE SCREEN, URINE NEGATIVE (NEGATIVE); OPIATE SCREEN,URINE NEGATIVE (NEGATIVE); PHENCYCLIDINE SCREEN,URINE NEGATIVE (NEGATIVE)
[2023-10-03 20:20] LABS: SARS-COV2 (COVID) ANTIGEN,FIA Negative (Negative)
[2023-10-03 20:29] LABS: RBC,URINE 0-2 /HPF (0-2); WBC,URINE 0-2 /HPF (0-5)
[2023-10-03 20:30] LABS: BACTERIA,URINE Rare /HPF (None Seen); SQUAMOUS EPITHELIAL CELL,UR Moderate /LPF (None Seen)
[2023-10-04 00:26] LABS: GLUCOMETER DEV NAME(LOC) ERT.5; GLUCOSE,POINT OF CARE 297 MG/DL (70-110)
== END 2023-10-03 23:20 | disposition home or self-care (01) ==
LOC: EMS 18:50
DX: E11.65 Type 2 diabetes mellitus with hyperglycemia (principal); F31.9 Bipolar disorder, unspecified; I10 Essential (primary) hypertension; F20.9 Schizophrenia, unspecified; F17.210 Nicotine dependence, cigarettes, uncomplicated; F10.90 Alcohol use, unspecified, uncomplicated; Z98.890 Other specified postprocedural states; Z20.822 Contact with and (suspected) exposure to COVID-19; Y90.9 Presence of alcohol in blood, level not specified
CPT/HCPCS: 99285; 96374; 71045; 96375; 96361; 87426; 80053; 82009; 82550; 82962; 83690; 83880; 84484; 84703; 85025; 36415; 93005; 80307; 81001; J3490; J1815; J2405; J7030; G0480

== ENCOUNTER 2023-10-09 17:10 | Emergency (ER) | payer MEDICAID ==
[~2023-10-09] VITALS: Ht 160 cm; Wt 65.9 kg
[2023-10-09 18:25] LABS: BASOPHILS % (AUTO) 0.6 % (0.0-2.0); EOSINOPHILS % (AUTO) 2.3 % (1.0-6.0); HEMATOCRIT 39.6 % (36-46); HEMOGLOBIN 12.9 g/dL (12.0-16.0); LYMPHOCYTES # (AUTO) 4.1 K/uL (1.0-4.8); LYMPHOCYTES % (AUTO) 35.4 % (22.0-44.0); MEAN CORPUSCULAR HEMOGLOBIN 28.7 pg (26.0-34.0); MEAN CORPUSCULAR HGB CONC 32.7 G/dL (31.0-37.0); MEAN CORPUSCULAR VOLUME 88 fL (80-100); MONOCYTES # (AUTO) 0.6 K/uL (0.1-1.0); MONOCYTES % (AUTO) 5.3 % (2.0-9.0); NEUTROPHILS # (AUTO) 6.5 K/uL (1.8-7.7); NEUTROPHILS % (AUTO) 56.4 % (40.0-70.0); PLATELET COUNT (AUTO) 188 K/uL (150-450); RED CELL DISTRIBUTION WIDTH 14.1 % (11.5-14.5); WHITE BLOOD COUNT (AUTO) 11.5 K/uL (4.5-11.0)
[2023-10-09 18:33] LABS: ANION GAP 8 mmol/L (8-16); CALCIUM, TOTAL 9.5 mg/dL (8.8-10.5); CARBON DIOXIDE 26 mmol/L (22-29); CHLORIDE 101 mmol/L (98-107); CREATININE 0.72 mg/dL (0.60-1.30); GLOMERULAR FILTR. RATE CALC > 60 mL/min (>60); GLUCOSE,RANDOM 354 mg/dL (70-110); POTASSIUM 4.8 mmol/L (3.5-5.1); SODIUM SERUM 135 mmol/L (136-145); UREA NITROGEN, BLOOD 8 mg/dL (7-18)
[2023-10-09 18:45] VITALS: TEMP 98.4
[2023-10-09 18:47] LABS: ALANINE AMINOTRANSFERASE 22 U/L (12-78); ALKALINE PHOSPHATASE 115 U/L (46-116); ASPARTATE AMINOTRANSFERASE 13 U/L (15-37); BILIRUBIN,TOTAL 0.1 mg/dL (0.1-1.0); HCG,QUANTITATIVE < 1 mIU/mL (0-6); LIPASE < 10 U/L (16-77); TOTAL PROTEIN, SERUM 7.3 g/dL (6.4-8.2)
[2023-10-09 18:56] LABS: APPEARANCE,URINE CLEAR (CLEAR); BILIRUBIN,URINE NEGATIVE (NEGATIVE); COLOR,URINE COLORLESS (YELLOW); GLUCOSE, URINE (UA) >=1000 mg/dL (NEGATIVE); KETONES,URINE NEGATIVE (NEGATIVE); LEUKOCYTE ESTERASE ,URINE NEGATIVE (NEGATIVE); NITRATE,URINE NEGATIVE (NEGATIVE); OCCULT BLOOD,URINE NEGATIVE (NEGATIVE); PROTEIN,URINE NEGATIVE (NEGATIVE); SPECIFIC GRAVITIY, URINE 1.014 (1.003-1.030); UROBILINOGEN,URINE <=1.0 mg/dL (<=1.0)
[2023-10-09 19:03] LABS: BACTERIA,URINE Few /HPF (None Seen); RBC,URINE 0-2 /HPF (0-2); SQUAMOUS EPITHELIAL CELL,UR Many /LPF (None Seen); WBC,URINE 0-2 /HPF (0-5)
[2023-10-09 19:32] VITALS: BP 138/106; PULSE 100; RESP 17
[2023-10-09] MEDS: KETOROLAC TROMETHAMINE 30 MG/ML VIAL IM ONE (20:07)
[2023-10-09] MEDS: ONDANSETRON HCL 4 MG TABLET PO ONE (20:07)
== END 2023-10-09 20:46 | disposition home or self-care (01) ==
LOC: EMS 17:10
DX: E11.65 Type 2 diabetes mellitus with hyperglycemia (principal); F25.9 Schizoaffective disorder, unspecified; G89.29 Other chronic pain; R10.13 Epigastric pain; F31.9 Bipolar disorder, unspecified; I10 Essential (primary) hypertension; F17.210 Nicotine dependence, cigarettes, uncomplicated; F10.90 Alcohol use, unspecified, uncomplicated; Z98.890 Other specified postprocedural states; Y90.9 Presence of alcohol in blood, level not specified
CPT/HCPCS: 99283; 80053; 81001; 82962; 83690; 84702; 85025; 36415; 96372; J1885; Q0162

== ENCOUNTER 2023-10-20 15:38 | Emergency (ER) | payer MEDICAID ==
[~2023-10-20] VITALS: Ht 160 cm; Wt 64.0 kg
[2023-10-20 17:18] VITALS: TEMP 98.5
[2023-10-20 17:48] LABS: BASOPHILS % (AUTO) 0.1 % (0.0-2.0); EOSINOPHILS % (AUTO) 1.7 % (1.0-6.0); HEMATOCRIT 35.4 % (36-46); HEMOGLOBIN 11.4 g/dL (12.0-16.0); LYMPHOCYTES # (AUTO) 3.7 K/uL (1.0-4.8); MEAN CORPUSCULAR HEMOGLOBIN 28.3 pg (26.0-34.0); MEAN CORPUSCULAR HGB CONC 32.1 G/dL (31.0-37.0); MEAN CORPUSCULAR VOLUME 88 fL (80-100); MONOCYTES # (AUTO) 0.9 K/uL (0.1-1.0); MONOCYTES % (AUTO) 6.2 % (2.0-9.0); NEUTROPHILS # (AUTO) 10.4 K/uL (1.8-7.7); PLATELET COUNT (AUTO) 146 K/uL (150-450); RED BLOOD CELL COUNT(AUTO) 4.01 MIL/uL (4.00-5.20); RED CELL DISTRIBUTION WIDTH 14.2 % (11.5-14.5); WHITE BLOOD COUNT (AUTO) 15.3 K/uL (4.5-11.0)
[2023-10-20] MEDS: SODIUM CHLORIDE 0.9% 1,000 ML IV ONE (17:54)
[2023-10-20] MEDS: MAG HYDROX/ALUMINUM HYD/SIMETH 30 ML SUSPENSION UDCUP PO ONE (17:54)
[2023-10-20] MEDS: FAMOTIDINE 20 MG/2 ML VIAL IVP ONE (17:55)
[2023-10-20] MEDS: KETOROLAC TROMETHAMINE 30 MG/ML VIAL IVP ONE (17:55)
[2023-10-20] MEDS: MORPHINE SULFATE 2 MG/ML SYRINGE IVP ONE (17:56)
[2023-10-20 18:15] LABS: ALANINE AMINOTRANSFERASE 31 U/L (12-78); ALBUMIN 2.9 g/dL (3.4-5.0); ALKALINE PHOSPHATASE 103 U/L (46-116); ANION GAP 10 mmol/L (8-16); ASPARTATE AMINOTRANSFERASE 16 U/L (15-37); BILIRUBIN,TOTAL 0.1 mg/dL (0.1-1.0); CALCIUM, TOTAL 9.1 mg/dL (8.8-10.5); CARBON DIOXIDE 27 mmol/L (22-29); CHLORIDE 95 mmol/L (98-107); CREATININE 1.09 mg/dL (0.60-1.30); GLOMERULAR FILTR. RATE CALC > 60 mL/min (>60); LIPASE 15 U/L (16-77); POTASSIUM 4.5 mmol/L (3.5-5.1); SODIUM SERUM 132 mmol/L (136-145); TOTAL PROTEIN, SERUM 6.9 g/dL (6.4-8.2); UREA NITROGEN, BLOOD 10 mg/dL (7-18)
[2023-10-20 18:23] LABS: ALCOHOL, BLOOD (SERUM) < 3 mg/dL (0-10); GLUCOSE,RANDOM 629 mg/dL (70-110)
[2023-10-20] MEDS: INSULIN REGULAR, HUMAN 100 UNITS/ML IVP ONE (18:43)
[2023-10-20 18:46] LABS: ACETONE,BLOOD NEGATIVE (NEGATIVE)
[2023-10-20] MEDS ORDERED: ONDA-104 PO (20:16)
[2023-10-20] MEDS ORDERED: IBUP-1492 PO (20:16)
[2023-10-20] MEDS ORDERED: ACET-3385 PO (20:16)
[2023-10-20 20:34] VITALS: BP 111/70; PULSE 79; RESP 18
== END 2023-10-20 21:34 | disposition home or self-care (01) ==
LOC: EMS 15:39
DX: E11.65 Type 2 diabetes mellitus with hyperglycemia (principal); R11.2 Nausea with vomiting, unspecified; F31.9 Bipolar disorder, unspecified; I10 Essential (primary) hypertension; F20.9 Schizophrenia, unspecified; F17.210 Nicotine dependence, cigarettes, uncomplicated; F10.90 Alcohol use, unspecified, uncomplicated; Z98.890 Other specified postprocedural states; Y90.9 Presence of alcohol in blood, level not specified
CPT/HCPCS: 99284; 96374; 96375; 96361; 80053; 82009; 82962; 83690; 84703; 85025; 36415; G0480; J3490; J1815; J1885; J2270; J7030

== ENCOUNTER 2023-12-04 12:55 | Emergency (ER) | payer MEDICAID ==
[~2023-12-04] VITALS: Ht 160 cm; Wt 59.1 kg
[~2023-12-04 12:55] MED LIST changes: -ACET-66 PO; +LANC-493 TP; -MAG30ORA11 PO; +ONDA-104 PO; +SERT-162 PO; -SERT-439 PO; -TRAM-559 PO; -TRAZ-283 PO; +[UNRECOGNIZED DRUG - CODE]
[2023-12-04] MEDS ORDERED: IOHEXOL 350 MG/ML 100 ML VIAL ONE (13:27)
[2023-12-04] MEDS ORDERED: SODIUM CHLORIDE 0.9% 0 ML ONE (13:27)
[2023-12-04] MEDS ORDERED: FAMOTIDINE 20 MG/2 ML VIAL IVP ONE (13:30)
[2023-12-04] MEDS ORDERED: SODIUM CHLORIDE 0.9% 500 ML IV ONE (13:30)
[2023-12-04] MEDS ORDERED: KETOROLAC TROMETHAMINE 30 MG/ML VIAL IVP ONE (13:30)
[2023-12-04] MEDS ORDERED: ONDANSETRON HCL 4 MG/2 ML VIAL IVP ONE (13:30)
[2023-12-04 13:33] VITALS: BP 151/106; PULSE 108; RESP 16
[2023-12-04] MEDS: ACETAMINOPHEN 500 MG TABLET PO ONE (13:50)
[2023-12-04 13:52] LABS: BASOPHILS % (AUTO) 0.9 % (0.0-2.0); EOSINOPHILS % (AUTO) 1.7 % (1.0-6.0); HEMATOCRIT 36.4 % (36-46); LYMPHOCYTES % (AUTO) 29.4 % (22.0-44.0); MEAN CORPUSCULAR HEMOGLOBIN 28.5 pg (26.0-34.0); MEAN CORPUSCULAR HGB CONC 32.9 G/dL (31.0-37.0); MEAN CORPUSCULAR VOLUME 87 fL (80-100); MONOCYTES # (AUTO) 0.7 K/uL (0.1-1.0); MONOCYTES % (AUTO) 5.1 % (2.0-9.0); NEUTROPHILS # (AUTO) 8.6 K/uL (1.8-7.7); NEUTROPHILS % (AUTO) 62.9 % (40.0-70.0); PLATELET COUNT (AUTO) 166 K/uL (150-450); RED CELL DISTRIBUTION WIDTH 14.5 % (11.5-14.5); WHITE BLOOD COUNT (AUTO) 13.6 K/uL (4.5-11.0)
[2023-12-04 13:52] LABS: APPEARANCE,URINE CLEAR (CLEAR); BILIRUBIN,URINE NEGATIVE (NEGATIVE); COLOR,URINE LIGHT YELLOW (YELLOW); GLUCOSE, URINE (UA) >=1000 mg/dL (NEGATIVE); KETONES,URINE NEGATIVE (NEGATIVE); LEUKOCYTE ESTERASE ,URINE NEGATIVE (NEGATIVE); NITRATE,URINE NEGATIVE (NEGATIVE); OCCULT BLOOD,URINE NEGATIVE (NEGATIVE); PROTEIN,URINE NEGATIVE (NEGATIVE); SPECIFIC GRAVITIY, URINE 1.034 (1.003-1.030); UROBILINOGEN,URINE <=1.0 mg/dL (<=1.0)
[2023-12-04 14:07] LABS: ALANINE AMINOTRANSFERASE 41 U/L (12-78); ALBUMIN 2.9 g/dL (3.4-5.0); ALKALINE PHOSPHATASE 115 U/L (46-116); ANION GAP 9 mmol/L (8-16); ASPARTATE AMINOTRANSFERASE 25 U/L (15-37); BILIRUBIN,TOTAL 0.2 mg/dL (0.1-1.0); CALCIUM, TOTAL 8.6 mg/dL (8.8-10.5); CARBON DIOXIDE 25 mmol/L (22-29); CHLORIDE 96 mmol/L (98-107); CREATININE 0.87 mg/dL (0.60-1.30); GLOMERULAR FILTR. RATE CALC > 60 mL/min (>60); LIPASE 10 U/L (16-77); POTASSIUM 4.1 mmol/L (3.5-5.1); SODIUM SERUM 130 mmol/L (136-145); TOTAL PROTEIN, SERUM 7.3 g/dL (6.4-8.2); UREA NITROGEN, BLOOD 7 mg/dL (7-18)
[2023-12-04 14:12] LABS: GLUCOSE,RANDOM 458 mg/dL (70-110)
[2023-12-04 14:15] LABS: BACTERIA,URINE None Seen /HPF (None Seen); RBC,URINE 0-2 /HPF (0-2); SQUAMOUS EPITHELIAL CELL,UR Few /LPF (None Seen); WBC,URINE None Seen /HPF (0-5)
== END 2023-12-04 14:28 | disposition left against medical advice (07) ==
LOC: EMS 12:55
DX: R10.9 Unspecified abdominal pain (principal); E11.9 Type 2 diabetes mellitus without complications; E78.00 Pure hypercholesterolemia, unspecified; I10 Essential (primary) hypertension; F31.9 Bipolar disorder, unspecified; F20.9 Schizophrenia, unspecified; E78.5 Hyperlipidemia, unspecified; F17.210 Nicotine dependence, cigarettes, uncomplicated; Z98.890 Other specified postprocedural states
CPT/HCPCS: 80053; 81001; 83690; 84703; 85025; 99283; J1885; J2405; J3490; J7040; J7050; Q9967

== ENCOUNTER 2024-02-24 20:00 | Emergency (ER) | payer MEDICAID ==
[~2024-02-24] VITALS: Ht 160 cm; Wt 59.1 kg
[~2024-02-24 20:00] MED LIST changes: +EMPA10TA3 PO; -GABA-1181 PO; +GABA600T10 PO
[2024-02-24 21:19] LABS: BASOPHILS % (AUTO) 1.1 % (0.0-2.0); EOSINOPHILS % (AUTO) 3.1 % (1.0-6.0); HEMATOCRIT 36.3 % (36-46); HEMOGLOBIN 11.7 g/dL (12.0-16.0); LYMPHOCYTES # (AUTO) 4.1 K/uL (1.0-4.8); LYMPHOCYTES % (AUTO) 39.1 % (22.0-44.0); MEAN CORPUSCULAR HEMOGLOBIN 28.2 pg (26.0-34.0); MEAN CORPUSCULAR HGB CONC 32.2 G/dL (31.0-37.0); MEAN CORPUSCULAR VOLUME 88 fL (80-100); MONOCYTES # (AUTO) 0.8 K/uL (0.1-1.0); MONOCYTES % (AUTO) 7.2 % (2.0-9.0); NEUTROPHILS # (AUTO) 5.2 K/uL (1.8-7.7); NEUTROPHILS % (AUTO) 49.5 % (40.0-70.0); PLATELET COUNT (AUTO) 132 K/uL (150-450); RED BLOOD CELL COUNT(AUTO) 4.15 MIL/uL (4.00-5.20); RED CELL DISTRIBUTION WIDTH 13.8 % (11.5-14.5); WHITE BLOOD COUNT (AUTO) 10.6 K/uL (4.5-11.0)
[2024-02-24 21:27] LABS: ACETONE,BLOOD NEGATIVE (NEGATIVE)
[2024-02-24] MEDS: SODIUM CHLORIDE 0.9% 2,000 ML IV ONE (21:32)
[2024-02-24 21:40] LABS: ALANINE AMINOTRANSFERASE 25 U/L (12-78); ALBUMIN 3.2 g/dL (3.4-5.0); ALKALINE PHOSPHATASE 122 U/L (46-116); ANION GAP 10 mmol/L (8-16); ASPARTATE AMINOTRANSFERASE 13 U/L (15-37); BILIRUBIN,TOTAL 0.1 mg/dL (0.1-1.0); CALCIUM, TOTAL 9.2 mg/dL (8.8-10.5); CARBON DIOXIDE 23 mmol/L (22-29); CHLORIDE 90 mmol/L (98-107); CREATININE 0.96 mg/dL (0.60-1.30); GLOMERULAR FILTR. RATE CALC > 60 mL/min (>60); LIPASE 11 U/L (16-77); POTASSIUM 4.4 mmol/L (3.5-5.1); TOTAL PROTEIN, SERUM 7.4 g/dL (6.4-8.2); UREA NITROGEN, BLOOD 6 mg/dL (7-18)
[2024-02-24 21:42] LABS: LACTIC ACID 2.4 mmol/L (0.4-2.0)
[2024-02-24] MEDS: INSULIN REGULAR, HUMAN 100 UNITS/ML IVP ONE (21:45)
[2024-02-24 22:00] LABS: GLUCOMETER DEV NAME(LOC) ERT.5; GLUCOSE,POINT OF CARE > 600 MG/DL (70-110)
[2024-02-24 22:04] LABS: GLUCOSE,RANDOM 813 mg/dL (70-110); SODIUM SERUM 123 mmol/L (136-145)
[2024-02-24 22:06] LABS: TROPONIN I-HIGH SENSITIVITY Less Than 4 ng/L (<51)
[2024-02-24 22:13] LABS: CREATINE KINASE, TOTAL ONLY 64 U/L (26-192)
[2024-02-24] MEDS: HYDROmorphone HCL 2 MG/ML SYRINGE IVP ONE (22:15)
[2024-02-24] MEDS ORDERED: IOHEXOL 350 MG/ML 100 ML VIAL ONE (22:20)
[2024-02-24] MEDS ORDERED: SODIUM CHLORIDE 0.9% 100 ML ONE (22:20)
[2024-02-24 22:44] LABS: ALANINE AMINOTRANSFERASE 24 U/L (12-78); ALBUMIN 2.8 g/dL (3.4-5.0); ALKALINE PHOSPHATASE 106 U/L (46-116); ANION GAP 7 mmol/L (8-16); ASPARTATE AMINOTRANSFERASE 11 U/L (15-37); BILIRUBIN,TOTAL 0.2 mg/dL (0.1-1.0); CALCIUM, TOTAL 8.5 mg/dL (8.8-10.5); CARBON DIOXIDE 27 mmol/L (22-29); CHLORIDE 100 mmol/L (98-107); CREATININE 0.86 mg/dL (0.60-1.30); GLOMERULAR FILTR. RATE CALC > 60 mL/min (>60); POTASSIUM 3.4 mmol/L (3.5-5.1); SODIUM SERUM 134 mmol/L (136-145); TOTAL PROTEIN, SERUM 6.4 g/dL (6.4-8.2); UREA NITROGEN, BLOOD 5 mg/dL (7-18)
[2024-02-24 22:47] LABS: GLUCOSE,RANDOM 481 mg/dL (70-110)
[2024-02-24] MEDS ORDERED: POTASSIUM CHL 10 MEQ/WATER 50 ML IV PRN (23:00)
[2024-02-24] MEDS ORDERED: ACETAMINOPHEN 325 MG TABLET PO PRN (23:00)
[2024-02-24] MEDS ORDERED: INSULIN LISPRO 100 UNITS/ML SQ PRN (23:00)
[2024-02-24] MEDS ORDERED: DEXTROSE 50%-WATER 25 GM/50 ML SYRINGE IVP PRN (23:00)
[2024-02-24] MEDS: SODIUM CHLORIDE 0.9% 1,000 ML IV ONE (23:06)
[2024-02-25] MEDS: MORPHINE SULFATE 2 MG/ML SYRINGE IVP PRN (00:45)
[2024-02-25] MEDS: POTASSIUM CHLORIDE 20 MEQ ER TABLET PO PRN (00:45)
[2024-02-25] MEDS: ONDANSETRON HCL 4 MG/2 ML VIAL IVP PRN (00:45)
[2024-02-25] MEDS: SODIUM CHLORIDE 0.9% 1,200 ML IV ONE (00:46)
[2024-02-25] MEDS: PIPERACILLIN/TAZO 3.375 GM/D5W 50 ML IV ONE (00:46)
[2024-02-25 01:32] VITALS: BP 128/64; PULSE 76; RESP 18; TEMP 98.1
[2024-02-25] MEDS ORDERED: PANTOPRAZOLE SODIUM 40 MG/VIAL IVP SCH (09:00)
== END 2024-02-25 01:33 | disposition left against medical advice (07) ==
LOC: EMS 20:03
DX: A41.9 Sepsis, unspecified organism (principal); E11.65 Type 2 diabetes mellitus with hyperglycemia; R10.84 Generalized abdominal pain; F31.9 Bipolar disorder, unspecified; E78.00 Pure hypercholesterolemia, unspecified; I10 Essential (primary) hypertension; F20.9 Schizophrenia, unspecified; F17.210 Nicotine dependence, cigarettes, uncomplicated
CPT/HCPCS: 99285; 74177; 96375 ×2; 96361; 82009; 82550; 82962; 83605; 83690; 84484; 84703; 85025; 87040; 84145; 96365; 80053; 36415; J1170; Q9967; J7050; J2270; J2405; J2543; J1815

== ENCOUNTER 2024-02-25 02:38 | Emergency (ER) | payer MEDICAID ==
[~2024-02-25] VITALS: Ht 160 cm; Wt 59.1 kg
[2024-02-25 02:47] VITALS: TEMP 97.9
[2024-02-25] MEDS: ACETAMINOPHEN 500 MG TABLET PO ONE (03:19)
[2024-02-25 05:00] VITALS: BP 133/80; PULSE 75; RESP 16
[2024-02-25] MEDS ORDERED: ONDANSETRON HCL 4 MG/2 ML VIAL IVP PRN (05:30)
[2024-02-25] MEDS ORDERED: ACETAMINOPHEN 325 MG TABLET PO PRN (05:30)
[2024-02-25] MEDS ORDERED: INSULIN LISPRO 100 UNITS/ML SQ PRN (05:45)
[2024-02-25] MEDS ORDERED: DEXTROSE 50%-WATER 25 GM/50 ML SYRINGE IVP PRN (05:45)
[2024-02-25] MEDS ORDERED: PANTOPRAZOLE SODIUM 40 MG/VIAL IVP SCH (09:00)
== END 2024-02-25 07:22 | disposition left against medical advice (07) ==
LOC: EMS 02:40 → EDH 05:41 → UNDOADMIN 05:41 → UNDODISIN 06:16 → EDH 07:22
DX: E11.65 Type 2 diabetes mellitus with hyperglycemia (principal); E78.00 Pure hypercholesterolemia, unspecified; K86.1 Other chronic pancreatitis; F20.9 Schizophrenia, unspecified; R10.9 Unspecified abdominal pain; I10 Essential (primary) hypertension; Z53.29 Procedure and treatment not carried out because of patient's decision for other reasons; F17.210 Nicotine dependence, cigarettes, uncomplicated; F31.9 Bipolar disorder, unspecified; Z79.899 Other long term (current) drug therapy
CPT/HCPCS: 82962; 99285; G0378; Z7502; Z7610

== ENCOUNTER 2024-04-11 16:43 | Emergency (ER) | payer MEDICAID ==
[~2024-04-11] VITALS: Ht 160 cm; Wt 59.1 kg
[2024-04-11] MEDS ORDERED: INSNOV SQ (17:03)
[2024-04-11 17:15] LABS: GLUCOMETER DEV NAME(LOC) ER.7; GLUCOSE,POINT OF CARE 314 MG/DL (70-110)
[2024-04-11] MEDS: ONDANSETRON HCL 4 MG/2 ML VIAL IVP ONE (17:38)
[2024-04-11] MEDS: SODIUM CHLORIDE 0.9% 1,000 ML IV ONE (17:38)
[2024-04-11] MEDS ORDERED: TRAZ-257 PO (17:39)
[2024-04-11] MEDS ORDERED: LOXA50CA PO (17:39)
[2024-04-11] MEDS: MORPHINE SULFATE 4 MG/ML SYRINGE IVP ONE (17:39)
[2024-04-11 17:53] LABS: BASOPHILS % (AUTO) 0.3 % (0.0-2.0); EOSINOPHILS % (AUTO) 1.7 % (1.0-6.0); HEMATOCRIT 36.4 % (36-46); HEMOGLOBIN 11.7 g/dL (12.0-16.0); LYMPHOCYTES # (AUTO) 3.5 K/uL (1.0-4.8); LYMPHOCYTES % (AUTO) 31.3 % (22.0-44.0); MEAN CORPUSCULAR HEMOGLOBIN 27.8 pg (26.0-34.0); MEAN CORPUSCULAR HGB CONC 32.3 G/dL (31.0-37.0); MEAN CORPUSCULAR VOLUME 86 fL (80-100); MONOCYTES # (AUTO) 0.8 K/uL (0.1-1.0); MONOCYTES % (AUTO) 7.2 % (2.0-9.0); NEUTROPHILS # (AUTO) 6.6 K/uL (1.8-7.7); NEUTROPHILS % (AUTO) 59.5 % (40.0-70.0); PLATELET COUNT (AUTO) 213 K/uL (150-450); RED BLOOD CELL COUNT(AUTO) 4.22 MIL/uL (4.00-5.20); RED CELL DISTRIBUTION WIDTH 14.7 % (11.5-14.5); WHITE BLOOD COUNT (AUTO) 11.2 K/uL (4.5-11.0)
[2024-04-11 18:03] LABS: ANION GAP 10 mmol/L (8-16); CALCIUM, TOTAL 8.4 mg/dL (8.8-10.5); CARBON DIOXIDE 24 mmol/L (22-29); CHLORIDE 99 mmol/L (98-107); GLOMERULAR FILTR. RATE CALC > 60 mL/min (>60); GLUCOSE,RANDOM 357 mg/dL (70-110); SODIUM SERUM 133 mmol/L (136-145); UREA NITROGEN, BLOOD 8 mg/dL (7-18)
[2024-04-11 18:08] LABS: ALANINE AMINOTRANSFERASE 38 U/L (12-78); ALBUMIN 2.9 g/dL (3.4-5.0); ALKALINE PHOSPHATASE 133 U/L (46-116); ASPARTATE AMINOTRANSFERASE 22 U/L (15-37); BILIRUBIN,TOTAL 0.2 mg/dL (0.1-1.0); LIPASE < 10 U/L (16-77); TOTAL PROTEIN, SERUM 7.3 g/dL (6.4-8.2)
[2024-04-11 18:55] VITALS: BP 126/95; PULSE 77; RESP 18
[2024-04-11] MEDS ORDERED: OXYC-38 PO (19:52)
[2024-04-11] MEDS ORDERED: ONDA-104 PO (19:53)
== END 2024-04-11 20:30 | disposition home or self-care (01) ==
LOC: EMS 16:43
DX: K86.1 Other chronic pancreatitis (principal); R10.9 Unspecified abdominal pain; R11.2 Nausea with vomiting, unspecified; E11.9 Type 2 diabetes mellitus without complications; I10 Essential (primary) hypertension; E78.5 Hyperlipidemia, unspecified; Z88.4 Allergy status to anesthetic agent
CPT/HCPCS: 99284; 96374; 96361; 96375; 80048; 80076; 82962; 83690; 85025; 93005; J2270; J2405; J7030; 36415-L1; 36415-TC

== ENCOUNTER 2024-07-05 12:40 | Emergency (ER) | payer MEDICAID ==
[~2024-07-05] VITALS: Ht 160 cm; Wt 64.1 kg
[~2024-07-05 12:40] MED LIST changes: +GABA-1404 PO; -GABA600T10 PO; +INSNOV SQ; +LOXA50CA PO; +OXYC-38 PO; -PALI234D IM; +TRAZ-257 PO; -[UNRECOGNIZED DRUG - CODE]
[2024-07-05] MEDS ORDERED: CYCL10TA16 PO (13:20)
[2024-07-05] MEDS ORDERED: LOXA25CA PO (13:20)
[2024-07-05] MEDS ORDERED: HYDR-4069 PO ×2 (13:20→17:36)
[2024-07-05] MEDS ORDERED: AMYL1CAP63 PO (13:20)
[2024-07-05] MEDS ORDERED: NALO25TA4 PO (13:20)
[2024-07-05] MEDS ORDERED: GABA-1181 PO (13:20)
[2024-07-05 13:23] VITALS: TEMP 98.5
[2024-07-05 14:08] LABS: BASOPHILS % (AUTO) 1.2 % (0.0-2.0); EOSINOPHILS % (AUTO) 2.4 % (1.0-6.0); HEMATOCRIT 36.4 % (36-46); HEMOGLOBIN 11.9 g/dL (12.0-16.0); LYMPHOCYTES # (AUTO) 2.6 K/uL (1.0-4.8); LYMPHOCYTES % (AUTO) 26.3 % (22.0-44.0); MEAN CORPUSCULAR HEMOGLOBIN 27.7 pg (26.0-34.0); MEAN CORPUSCULAR HGB CONC 32.7 G/dL (31.0-37.0); MEAN CORPUSCULAR VOLUME 85 fL (80-100); MONOCYTES # (AUTO) 0.4 K/uL (0.1-1.0); MONOCYTES % (AUTO) 4.3 % (2.0-9.0); NEUTROPHILS # (AUTO) 6.5 K/uL (1.8-7.7); NEUTROPHILS % (AUTO) 65.8 % (40.0-70.0); RED BLOOD CELL COUNT(AUTO) 4.29 MIL/uL (4.00-5.20); WHITE BLOOD COUNT (AUTO) 9.8 K/uL (4.5-11.0)
[2024-07-05 14:25] LABS: ACETONE,BLOOD NEGATIVE (NEGATIVE)
[2024-07-05 14:28] LABS: PLATELET COUNT (AUTO) 184 K/uL (150-450)
[2024-07-05 14:35] LABS: ALANINE AMINOTRANSFERASE 30 U/L (12-78); ALBUMIN 3.3 g/dL (3.4-5.0); ALKALINE PHOSPHATASE 119 U/L (46-116); ANION GAP 13 mmol/L (8-16); ASPARTATE AMINOTRANSFERASE 19 U/L (15-37); BILIRUBIN,TOTAL 0.1 mg/dL (0.1-1.0); CALCIUM, TOTAL 9.3 mg/dL (8.8-10.5); CARBON DIOXIDE 22 mmol/L (22-29); CHLORIDE 95 mmol/L (98-107); CREATININE 0.74 mg/dL (0.60-1.30); GLOMERULAR FILTR. RATE CALC > 60 mL/min (>60); LIPASE < 10 U/L (16-77); POTASSIUM 5.4 mmol/L (3.5-5.1); SODIUM SERUM 130 mmol/L (136-145); TOTAL PROTEIN, SERUM 7.9 g/dL (6.4-8.2); UREA NITROGEN, BLOOD 9 mg/dL (7-18)
[2024-07-05 14:39] LABS: GLUCOSE,RANDOM 489 mg/dL (70-110)
[2024-07-05 14:40] LABS: BILIRUBIN,DIRECT < 0.05 mg/dL (0.00-0.20)
[2024-07-05] MEDS: ONDANSETRON HCL 4 MG/2 ML VIAL IVP ONE (15:33)
[2024-07-05] MEDS: HYDROmorphone HCL 2 MG/ML SYRINGE IVP ONE (15:34)
[2024-07-05] MEDS: SODIUM CHLORIDE 0.9% 2,000 ML IV ONE (15:36)
[2024-07-05] MEDS: INSULIN REGULAR, HUMAN 100 UNITS/ML IVP ONE (15:36)
[2024-07-05 15:39] LABS: APPEARANCE,URINE CLEAR (CLEAR); BILIRUBIN,URINE NEGATIVE (NEGATIVE); COLOR,URINE COLORLESS (YELLOW); GLUCOSE, URINE (UA) >=1000 mg/dL (NEGATIVE); KETONES,URINE NEGATIVE (NEGATIVE); LEUKOCYTE ESTERASE ,URINE NEGATIVE (NEGATIVE); NITRATE,URINE NEGATIVE (NEGATIVE); OCCULT BLOOD,URINE NEGATIVE (NEGATIVE); PROTEIN,URINE NEGATIVE (NEGATIVE); SPECIFIC GRAVITIY, URINE 1.026 (1.003-1.030); UROBILINOGEN,URINE <=1.0 mg/dL (<=1.0)
[2024-07-05 16:11] LABS: RBC,URINE None Seen /HPF (0-2); WBC,URINE None Seen /HPF (0-5)
[2024-07-05 16:12] LABS: SQUAMOUS EPITHELIAL CELL,UR Few /LPF (None Seen)
[2024-07-05 16:14] LABS: YEAST,URINE Rare /HPF (None Seen)
[2024-07-05 16:15] LABS: BACTERIA,URINE None Seen /HPF (None Seen)
[2024-07-05 17:00] VITALS: BP 122/74; PULSE 82; RESP 15; O2SAT 97
[2024-07-05 17:30] LABS: GLUCOMETER DEV NAME(LOC) ERT.6; GLUCOSE,POINT OF CARE 492 MG/DL (70-110)
[2024-07-06 12:21] LABS: GLUCOMETER DEV NAME(LOC) ERT.6; GLUCOSE,POINT OF CARE 143 MG/DL (70-110)
== END 2024-07-05 17:47 | disposition home or self-care (01) ==
LOC: EMS 12:45
DX: R10.84 Generalized abdominal pain (principal); E11.65 Type 2 diabetes mellitus with hyperglycemia; I10 Essential (primary) hypertension; F31.9 Bipolar disorder, unspecified; E87.5 Hyperkalemia; E78.00 Pure hypercholesterolemia, unspecified; F20.9 Schizophrenia, unspecified; Z79.4 Long term (current) use of insulin; Z79.84 Long term (current) use of oral hypoglycemic drugs; Z90.49 Acquired absence of other specified parts of digestive tract; Z79.899 Other long term (current) drug therapy
CPT/HCPCS: 99284; 96374; 96375; 96361; 80048; 80076; 81001; 82009; 82962; 83690; 84703; 85025; 36415; J1171; J2405; J7030; J1815; 81003

== ENCOUNTER 2024-07-08 10:13 | Emergency (ER) | payer MEDICAID ==
[~2024-07-08] VITALS: Ht 160 cm; Wt 58.6 kg
[~2024-07-08 10:13] MED LIST changes: +AMYL1CAP63 PO; +CYCL10TA16 PO; +GABA-1181 PO; -GABA-1404 PO; +HYDR-4069 PO; +LOXA25CA PO; -LOXA50CA PO; +NALO25TA4 PO; -OXYC-38 PO
[2024-07-08 10:25] VITALS: TEMP 98.4
[2024-07-08 10:40] LABS: GLUCOMETER DEV NAME(LOC) ER.7; GLUCOSE,POINT OF CARE 287 MG/DL (70-110)
[2024-07-08 11:24] LABS: BASOPHILS % (AUTO) 0.3 % (0.0-2.0); EOSINOPHILS % (AUTO) 1.7 % (1.0-6.0); HEMATOCRIT 32.6 % (36-46); HEMOGLOBIN 10.4 g/dL (12.0-16.0); LYMPHOCYTES # (AUTO) 3.7 K/uL (1.0-4.8); LYMPHOCYTES % (AUTO) 28.4 % (22.0-44.0); MEAN CORPUSCULAR HGB CONC 31.9 G/dL (31.0-37.0); MEAN CORPUSCULAR VOLUME 85 fL (80-100); MONOCYTES # (AUTO) 0.8 K/uL (0.1-1.0); MONOCYTES % (AUTO) 5.8 % (2.0-9.0); NEUTROPHILS # (AUTO) 8.4 K/uL (1.8-7.7); NEUTROPHILS % (AUTO) 63.8 % (40.0-70.0); PLATELET COUNT (AUTO) 169 K/uL (150-450); RED BLOOD CELL COUNT(AUTO) 3.86 MIL/uL (4.00-5.20); RED CELL DISTRIBUTION WIDTH 14.6 % (11.5-14.5); WHITE BLOOD COUNT (AUTO) 13.1 K/uL (4.5-11.0)
[2024-07-08 11:35] LABS: ANION GAP 12 mmol/L (8-16); CALCIUM, TOTAL 8.2 mg/dL (8.8-10.5); CARBON DIOXIDE 24 mmol/L (22-29); CHLORIDE 96 mmol/L (98-107); CREATININE 0.71 mg/dL (0.60-1.30); GLOMERULAR FILTR. RATE CALC > 60 mL/min (>60); GLUCOSE,RANDOM 337 mg/dL (70-110); POTASSIUM 3.4 mmol/L (3.5-5.1); SODIUM SERUM 132 mmol/L (136-145); UREA NITROGEN, BLOOD 7 mg/dL (7-18)
[2024-07-08 11:41] LABS: ALANINE AMINOTRANSFERASE 16 U/L (12-78); ALKALINE PHOSPHATASE 93 U/L (46-116); ASPARTATE AMINOTRANSFERASE 11 U/L (15-37); BILIRUBIN,TOTAL 0.1 mg/dL (0.1-1.0); LIPASE < 10 U/L (16-77); TOTAL PROTEIN, SERUM 6.9 g/dL (6.4-8.2)
[2024-07-08] MEDS: HYDROmorphone HCL 2 MG/ML SYRINGE IVP ONE ×4 (11:55→16:42)
[2024-07-08] MEDS ORDERED: SODIUM CHLORIDE 0.9% 100 ML ONE (12:10)
[2024-07-08] MEDS ORDERED: IOHEXOL 350 MG/ML 100 ML VIAL ONE (12:10)
[2024-07-08] MEDS ORDERED: SODIUM CHLORIDE 0.9% 1,000 ML IV ONE (15:30)
[2024-07-08] MEDS ORDERED: ACETAMINOPHEN 325 MG TABLET PO PRN (15:45)
[2024-07-08] MEDS ORDERED: ZOLPIDEM TARTRATE 5 MG TABLET PO PRN (15:45)
[2024-07-08] MEDS ORDERED: MAGNESIUM HYDROXIDE SUSPENSION 30 ML UDCUP PO PRN (15:45)
[2024-07-08] MEDS ORDERED: BISACODYL 10 MG RECTAL RECTAL SUPPOSITORY PR PRN (15:45)
[2024-07-08] MEDS ORDERED: HYDROCODONE/ACETAMINOPHEN 5-325 MG TABLET PO PRN (15:45)
[2024-07-08 16:00] VITALS: BP 132/92; PULSE 85; RESP 15; O2SAT 99
[2024-07-08] MEDS ORDERED: HydrALAZINE HCL 20 MG/ML VIAL IVP PRN (16:00)
[2024-07-08] MEDS ORDERED: INSULIN LISPRO 100 UNITS/ML SQ PRN (16:00)
[2024-07-08] MEDS ORDERED: DEXTROSE 50%-WATER 25 GM/50 ML SYRINGE IVP PRN (16:00)
[2024-07-08] MEDS: HEPARIN SODIUM,PORCINE 5,000 UNITS/ML VIAL SQ SCH (16:03)
[2024-07-08] MEDS: SODIUM CHLORIDE 0.9% 1,000 ML IV ONE (16:04)
[2024-07-08] MEDS: ONDANSETRON HCL 4 MG/2 ML VIAL IVP PRN (16:04)
[2024-07-08] MEDS: MORPHINE SULFATE 2 MG/ML SYRINGE IVP PRN (18:35)
[2024-07-08] MEDS ORDERED: DOCUSATE SODIUM 100 MG CAPSULE PO SCH (21:00)
[2024-07-09] MEDS ORDERED: PANTOPRAZOLE SODIUM 40 MG DR TABLET PO SCH (09:00)
== END 2024-07-08 20:20 | disposition short-term general hospital (02) ==
LOC: EMS 10:13 → UNDOADMIN 15:49 → EDH 15:49 → EMS 20:20
DX: K56.600 Partial intestinal obstruction, unspecified as to cause (principal); R10.84 Generalized abdominal pain; F31.9 Bipolar disorder, unspecified; E78.00 Pure hypercholesterolemia, unspecified; I10 Essential (primary) hypertension; F20.9 Schizophrenia, unspecified; E11.65 Type 2 diabetes mellitus with hyperglycemia; E87.6 Hypokalemia; K86.1 Other chronic pancreatitis; F17.210 Nicotine dependence, cigarettes, uncomplicated; Z90.49 Acquired absence of other specified parts of digestive tract; Z90.411 Acquired partial absence of pancreas; Z79.84 Long term (current) use of oral hypoglycemic drugs; Z79.4 Long term (current) use of insulin; Z46.59 Encounter for fitting and adjustment of other gastrointestinal appliance and device
CPT/HCPCS: 99285; 74177; 96374; 71045; 96361; 96375; 80048; 80076; 82962; 83690; 84703; 85025; 36415; 96376; Q9967; J1171; J2270; J2405; J1644; J7030; J7050

== ENCOUNTER 2024-08-29 17:38 | Emergency (ER) | payer MEDICAID ==
[~2024-08-29] VITALS: Ht 160 cm; Wt 58.6 kg
[2024-08-29 17:45] VITALS: TEMP 98.5
[2024-08-29 18:12] LABS: BASOPHILS % (AUTO) 0.9 % (0.0-2.0); HEMATOCRIT 35.1 % (36-46); HEMOGLOBIN 11.2 g/dL (12.0-16.0); LYMPHOCYTES # (AUTO) 3.8 K/uL (1.0-4.8); LYMPHOCYTES % (AUTO) 33.8 % (22.0-44.0); MEAN CORPUSCULAR HEMOGLOBIN 26.9 pg (26.0-34.0); MEAN CORPUSCULAR VOLUME 84 fL (80-100); MONOCYTES # (AUTO) 0.9 K/uL (0.1-1.0); MONOCYTES % (AUTO) 7.8 % (2.0-9.0); NEUTROPHILS # (AUTO) 6.4 K/uL (1.8-7.7); NEUTROPHILS % (AUTO) 56.5 % (40.0-70.0); PLATELET COUNT (AUTO) 187 K/uL (150-450); RED BLOOD CELL COUNT(AUTO) 4.18 MIL/uL (4.00-5.20); RED CELL DISTRIBUTION WIDTH 17.1 % (11.5-14.5); WHITE BLOOD COUNT (AUTO) 11.3 K/uL (4.5-11.0)
[2024-08-29 18:36] LABS: ALANINE AMINOTRANSFERASE 84 U/L (12-78); ALBUMIN 3.1 g/dL (3.4-5.0); ALKALINE PHOSPHATASE 102 U/L (46-116); ANION GAP 10 mmol/L (8-16); ASPARTATE AMINOTRANSFERASE 73 U/L (15-37); BILIRUBIN,TOTAL 0.2 mg/dL (0.1-1.0); CALCIUM, TOTAL 8.4 mg/dL (8.8-10.5); CARBON DIOXIDE 21 mmol/L (22-29); CHLORIDE 95 mmol/L (98-107); CREATININE 0.79 mg/dL (0.60-1.30); GLOMERULAR FILTR. RATE CALC > 60 mL/min (>60); HCG,QUANTITATIVE 1 mIU/mL (0-6); LIPASE 11 U/L (16-77); POTASSIUM 4.6 mmol/L (3.5-5.1); SODIUM SERUM 126 mmol/L (136-145); UREA NITROGEN, BLOOD 10 mg/dL (7-18)
[2024-08-29 18:44] LABS: GLUCOSE,RANDOM 408 mg/dL (70-110)
[2024-08-29 18:49] LABS: APPEARANCE,URINE CLEAR (CLEAR); BILIRUBIN,URINE NEGATIVE (NEGATIVE); COLOR,URINE COLORLESS (YELLOW); GLUCOSE, URINE (UA) >=1000 mg/dL (NEGATIVE); KETONES,URINE NEGATIVE (NEGATIVE); LEUKOCYTE ESTERASE ,URINE NEGATIVE (NEGATIVE); NITRATE,URINE NEGATIVE (NEGATIVE); OCCULT BLOOD,URINE NEGATIVE (NEGATIVE); PROTEIN,URINE NEGATIVE (NEGATIVE); SPECIFIC GRAVITIY, URINE 1.028 (1.003-1.030); UROBILINOGEN,URINE <=1.0 mg/dL (<=1.0)
[2024-08-29 18:56] LABS: AMPHET/METH SCREEN,URINE NEGATIVE (NEGATIVE); BARBITURATE SCREEN, URINE NEGATIVE (NEGATIVE); BENZODIAZEPINES SCREEN,URINE NEGATIVE (NEGATIVE); CANNABINOID SCREEN,URINE NEGATIVE (NEGATIVE); COCAINE SCREEN,URINE NEGATIVE (NEGATIVE); METHADONE SCREEN, URINE NEGATIVE (NEGATIVE); OPIATE SCREEN,URINE NEGATIVE (NEGATIVE); PHENCYCLIDINE SCREEN,URINE NEGATIVE (NEGATIVE)
[2024-08-29 18:57] LABS: ALCOHOL, URINE DRUG SCREEN NEGATIVE (NEGATIVE)
[2024-08-29 19:15] LABS: BACTERIA,URINE None Seen /HPF (None Seen); RBC,URINE None Seen /HPF (0-2); WBC,URINE 0-2 /HPF (0-5)
[2024-08-29] MEDS ORDERED: DULO-113 PO (19:24)
[2024-08-29] MEDS ORDERED: LOXA50CA PO ×2 (19:24)
[2024-08-29] MEDS ORDERED: CELE-146 PO (19:24)
[2024-08-29] MEDS ORDERED: LATA2.5D14 OU (19:24)
[2024-08-29] MEDS ORDERED: GABA600T PO ×2 (19:24)
[2024-08-29] MEDS ORDERED: SODIUM CHLORIDE 0.9% 100 ML ONE (19:30)
[2024-08-29] MEDS ORDERED: IOHEXOL 350 MG/ML 100 ML VIAL ONE (19:30)
[2024-08-29] MEDS: SODIUM CHLORIDE 0.9% 1,000 ML IV ONE (21:29)
[2024-08-29] MEDS: MAG HYDROX/ALUMINUM HYD/SIMETH 30 ML SUSPENSION UDCUP PO ONE (21:29)
[2024-08-29] MEDS: INSULIN REGULAR, HUMAN 100 UNITS/ML IVP ONE (21:30)
[2024-08-29] MEDS: MORPHINE SULFATE 2 MG/ML SYRINGE IVP ONE (21:31)
[2024-08-29] MEDS: FAMOTIDINE 20 MG/2 ML VIAL IVP ONE (21:31)
[2024-08-29 22:30] VITALS: BP 121/86; PULSE 98; RESP 18; O2SAT 99
[2024-08-29] MEDS: ACETAMINOPHEN 325 MG TABLET PO ONE (22:43)
[2024-08-30 11:41] LABS: GLUCOMETER DEV NAME(LOC) ERT.6; GLUCOSE,POINT OF CARE 407 MG/DL (70-110)
== END 2024-08-29 23:11 | disposition home or self-care (01) ==
LOC: EMS 17:38
DX: E11.65 Type 2 diabetes mellitus with hyperglycemia (principal); K52.9 Noninfective gastroenteritis and colitis, unspecified; F31.9 Bipolar disorder, unspecified; E78.00 Pure hypercholesterolemia, unspecified; F20.9 Schizophrenia, unspecified; I10 Essential (primary) hypertension; F17.210 Nicotine dependence, cigarettes, uncomplicated; Z79.4 Long term (current) use of insulin; Z79.84 Long term (current) use of oral hypoglycemic drugs; Z79.899 Other long term (current) drug therapy; Z87.19 Personal history of other diseases of the digestive system; Z90.411 Acquired partial absence of pancreas; Z90.49 Acquired absence of other specified parts of digestive tract
CPT/HCPCS: 99285; 74177; 96374; 96375; 96361; 80048; 80076; 81001; 82962; 83690; 84702; 85025; 36415; 80307; G0480; Q9967; J3490; J1815; J2270; J7030; J7050

== ENCOUNTER 2024-09-26 04:15 | Emergency (ER) | payer MEDICAID ==
[~2024-09-26] VITALS: Ht 160 cm; Wt 77.0 kg
[~2024-09-26 04:15] MED LIST changes: +CELE-146 PO; -CYCL10TA16 PO; +DULO-113 PO; -GABA-1181 PO; +GABA600T PO; +LATA2.5D14 OU; -LOXA25CA PO; +LOXA50CA PO
[2024-09-26 04:32] VITALS: BP 113/76; PULSE 104; RESP 17; TEMP 98; O2SAT 100
[2024-09-26 05:40] LABS: BASOPHILS % (AUTO) 0.5 % (0.0-2.0); EOSINOPHILS % (AUTO) 1.1 % (1.0-6.0); HEMATOCRIT 39.7 % (36-46); HEMOGLOBIN 12.7 g/dL (12.0-16.0); LYMPHOCYTES # (AUTO) 2.9 K/uL (1.0-4.8); LYMPHOCYTES % (AUTO) 18.9 % (22.0-44.0); MEAN CORPUSCULAR HEMOGLOBIN 28.5 pg (26.0-34.0); MEAN CORPUSCULAR VOLUME 89 fL (80-100); MONOCYTES % (AUTO) 6.8 % (2.0-9.0); NEUTROPHILS # (AUTO) 11.2 K/uL (1.8-7.7); NEUTROPHILS % (AUTO) 72.7 % (40.0-70.0); PLATELET COUNT (AUTO) 207 K/uL (150-450); RED BLOOD CELL COUNT(AUTO) 4.46 MIL/uL (4.00-5.20); RED CELL DISTRIBUTION WIDTH 17.9 % (11.5-14.5); WHITE BLOOD COUNT (AUTO) 15.4 K/uL (4.5-11.0)
[2024-09-26 05:53] LABS: ALANINE AMINOTRANSFERASE 17 U/L (12-78); ALBUMIN 3.4 g/dL (3.4-5.0); ALKALINE PHOSPHATASE 106 U/L (46-116); ANION GAP 7 mmol/L (8-16); ASPARTATE AMINOTRANSFERASE 13 U/L (15-37); BILIRUBIN,TOTAL 0.2 mg/dL (0.1-1.0); CALCIUM, TOTAL 9.2 mg/dL (8.8-10.5); CARBON DIOXIDE 29 mmol/L (22-29); CHLORIDE 93 mmol/L (98-107); CREATININE 0.92 mg/dL (0.60-1.30); GLOMERULAR FILTR. RATE CALC > 60 mL/min (>60); POTASSIUM 4.5 mmol/L (3.5-5.1); SODIUM SERUM 129 mmol/L (136-145); TOTAL PROTEIN, SERUM 7.7 g/dL (6.4-8.2); UREA NITROGEN, BLOOD 7 mg/dL (7-18)
[2024-09-26 05:57] LABS: GLUCOSE,RANDOM 580 mg/dL (70-110)
[2024-09-26] MEDS ORDERED: INSULIN REGULAR, HUMAN 100 UNITS/ML IVP ONE (06:30)
[2024-09-26] MEDS ORDERED: SODIUM CHLORIDE 0.9% 1,000 ML IV ONE (06:30)
== END 2024-09-26 08:56 | disposition left against medical advice (07) ==
LOC: EMS 04:17
DX: R10.84 Generalized abdominal pain (principal); Z53.21 Procedure and treatment not carried out due to patient leaving prior to being seen by health care provider
CPT/HCPCS: 80048; 80076; 82009; 83690; 84703; 85025

== ENCOUNTER 2024-10-04 02:01 | Emergency (ER) | payer MEDICAID ==
[~2024-10-04] VITALS: Ht 162.6 cm; Wt 65.0 kg
[2024-10-04 02:05] VITALS: TEMP 98.3
[2024-10-04] MEDS ORDERED: SODIUM CHLORIDE 0.9% 100 ML ONE (03:08)
[2024-10-04] MEDS ORDERED: IOHEXOL 350 MG/ML 100 ML VIAL ONE (03:08)
[2024-10-04] MEDS: ONDANSETRON HCL 4 MG/2 ML VIAL IVP ONE (03:33)
[2024-10-04] MEDS: MORPHINE SULFATE 2 MG/ML SYRINGE IVP ONE (03:33)
[2024-10-04] MEDS: SODIUM CHLORIDE 0.9% 1,000 ML IV ONE (03:34)
[2024-10-04 04:40] LABS: BASOPHILS % (AUTO) 0.4 % (0.0-2.0); EOSINOPHILS % (AUTO) 1.7 % (1.0-6.0); HEMATOCRIT 34.4 % (36-46); HEMOGLOBIN 11.3 g/dL (12.0-16.0); LYMPHOCYTES # (AUTO) 3.3 K/uL (1.0-4.8); LYMPHOCYTES % (AUTO) 31.8 % (22.0-44.0); MEAN CORPUSCULAR HEMOGLOBIN 29.2 pg (26.0-34.0); MEAN CORPUSCULAR HGB CONC 32.8 G/dL (31.0-37.0); MEAN CORPUSCULAR VOLUME 89 fL (80-100); MONOCYTES # (AUTO) 0.9 K/uL (0.1-1.0); MONOCYTES % (AUTO) 8.3 % (2.0-9.0); NEUTROPHILS # (AUTO) 5.9 K/uL (1.8-7.7); NEUTROPHILS % (AUTO) 57.8 % (40.0-70.0); PLATELET COUNT (AUTO) 152 K/uL (150-450); RED BLOOD CELL COUNT(AUTO) 3.86 MIL/uL (4.00-5.20); RED CELL DISTRIBUTION WIDTH 17.4 % (11.5-14.5); WHITE BLOOD COUNT (AUTO) 10.3 K/uL (4.5-11.0)
[2024-10-04 04:54] LABS: ANION GAP 7 mmol/L (8-16); CARBON DIOXIDE 23 mmol/L (22-29); CHLORIDE 104 mmol/L (98-107); CREATININE 0.79 mg/dL (0.60-1.30); GLOMERULAR FILTR. RATE CALC > 60 mL/min (>60); GLUCOSE,RANDOM 397 mg/dL (70-110); POTASSIUM 4.7 mmol/L (3.5-5.1); SODIUM SERUM 134 mmol/L (136-145); UREA NITROGEN, BLOOD 15 mg/dL (7-18)
[2024-10-04 04:58] LABS: ALANINE AMINOTRANSFERASE 16 U/L (12-78); ALBUMIN 2.6 g/dL (3.4-5.0); ALKALINE PHOSPHATASE 83 U/L (46-116); ASPARTATE AMINOTRANSFERASE 11 U/L (15-37); BILIRUBIN,TOTAL 0.2 mg/dL (0.1-1.0); LIPASE < 10 U/L (16-77); TOTAL PROTEIN, SERUM 5.9 g/dL (6.4-8.2)
[2024-10-04 05:49] VITALS: BP 123/76; PULSE 85; RESP 17; O2SAT 100
[2024-10-04] MEDS ORDERED: DOCU-385 PO (05:57)
[2024-10-04] MEDS: INSULIN REGULAR, HUMAN 100 UNITS/ML IVP ONE ×2 (06:02→06:06)
== END 2024-10-04 06:37 | disposition left against medical advice (07) ==
LOC: EMS 02:01
DX: K59.00 Constipation, unspecified (principal); R10.33 Periumbilical pain; E11.65 Type 2 diabetes mellitus with hyperglycemia; I10 Essential (primary) hypertension; E78.00 Pure hypercholesterolemia, unspecified; F20.9 Schizophrenia, unspecified; Z88.5 Allergy status to narcotic agent; Z79.4 Long term (current) use of insulin; Z79.84 Long term (current) use of oral hypoglycemic drugs; Z90.49 Acquired absence of other specified parts of digestive tract; Z79.899 Other long term (current) drug therapy
CPT/HCPCS: 99285; 74177; 96374; 96375; 96361; 80048; 80076; 83690; 84703; 85025; 36415; 82962; Q9967; J1815; J2270; J2405; J7030; J7050

== ENCOUNTER 2024-10-05 06:01 | Emergency (ER) | payer MEDICAID ==
[~2024-10-05] VITALS: Ht 160 cm; Wt 61.8 kg
[~2024-10-05 06:01] MED LIST changes: +DOCU-385 PO
[2024-10-05 06:03] VITALS: TEMP 98
[2024-10-05 07:36] LABS: BASOPHILS % (AUTO) 1.1 % (0.0-2.0); EOSINOPHILS % (AUTO) 2.2 % (1.0-6.0); HEMATOCRIT 38.8 % (36-46); HEMOGLOBIN 12.6 g/dL (12.0-16.0); LYMPHOCYTES # (AUTO) 3.5 K/uL (1.0-4.8); MEAN CORPUSCULAR HEMOGLOBIN 28.8 pg (26.0-34.0); MEAN CORPUSCULAR HGB CONC 32.4 G/dL (31.0-37.0); MEAN CORPUSCULAR VOLUME 89 fL (80-100); MONOCYTES # (AUTO) 0.7 K/uL (0.1-1.0); MONOCYTES % (AUTO) 5.5 % (2.0-9.0); NEUTROPHILS % (AUTO) 63.2 % (40.0-70.0); PLATELET COUNT (AUTO) 186 K/uL (150-450); RED BLOOD CELL COUNT(AUTO) 4.36 MIL/uL (4.00-5.20); RED CELL DISTRIBUTION WIDTH 17.7 % (11.5-14.5); WHITE BLOOD COUNT (AUTO) 12.6 K/uL (4.5-11.0)
[2024-10-05 07:44] LABS: ANION GAP 9 mmol/L (8-16); CALCIUM, TOTAL 8.7 mg/dL (8.8-10.5); CARBON DIOXIDE 25 mmol/L (22-29); CHLORIDE 104 mmol/L (98-107); CREATININE 0.63 mg/dL (0.60-1.30); GLOMERULAR FILTR. RATE CALC > 60 mL/min (>60); GLUCOSE,RANDOM 204 mg/dL (70-110); POTASSIUM 4.6 mmol/L (3.5-5.1); SODIUM SERUM 138 mmol/L (136-145); UREA NITROGEN, BLOOD 8 mg/dL (7-18)
[2024-10-05 08:00] VITALS: BP 140/100; PULSE 98; RESP 16; O2SAT 99
== END 2024-10-05 09:28 | disposition home or self-care (01) ==
LOC: EMS 06:01
DX: R10.9 Unspecified abdominal pain (principal); K92.1 Melena; E11.65 Type 2 diabetes mellitus with hyperglycemia; I10 Essential (primary) hypertension; E78.00 Pure hypercholesterolemia, unspecified; F20.9 Schizophrenia, unspecified; Z88.5 Allergy status to narcotic agent; Z79.4 Long term (current) use of insulin; Z79.84 Long term (current) use of oral hypoglycemic drugs; Z90.411 Acquired partial absence of pancreas; Z90.49 Acquired absence of other specified parts of digestive tract; Z79.899 Other long term (current) drug therapy
CPT/HCPCS: 80048; 85025; 99283

== ENCOUNTER 2024-10-08 07:49 | Emergency (ER) | payer MEDICAID ==
[~2024-10-08] VITALS: Ht 160 cm; Wt 59.1 kg
[2024-10-08] MEDS ORDERED: SODIUM CHLORIDE 0.9% 1,000 ML IV ONE (09:15)
[2024-10-08 09:31] LABS: BASOPHILS % (AUTO) 0.8 % (0.0-2.0); EOSINOPHILS % (AUTO) 1.8 % (1.0-6.0); HEMOGLOBIN 11.9 g/dL (12.0-16.0); LYMPHOCYTES # (AUTO) 2.5 K/uL (1.0-4.8); LYMPHOCYTES % (AUTO) 20.7 % (22.0-44.0); MEAN CORPUSCULAR HEMOGLOBIN 28.7 pg (26.0-34.0); MEAN CORPUSCULAR HGB CONC 32.3 G/dL (31.0-37.0); MEAN CORPUSCULAR VOLUME 89 fL (80-100); MONOCYTES # (AUTO) 0.7 K/uL (0.1-1.0); MONOCYTES % (AUTO) 6.1 % (2.0-9.0); NEUTROPHILS # (AUTO) 8.5 K/uL (1.8-7.7); NEUTROPHILS % (AUTO) 70.6 % (40.0-70.0); PLATELET COUNT (AUTO) 178 K/uL (150-450); RED BLOOD CELL COUNT(AUTO) 4.16 MIL/uL (4.00-5.20); RED CELL DISTRIBUTION WIDTH 17.4 % (11.5-14.5); WHITE BLOOD COUNT (AUTO) 12.1 K/uL (4.5-11.0)
[2024-10-08 09:49] LABS: ALANINE AMINOTRANSFERASE 25 U/L (12-78); ALBUMIN 3.1 g/dL (3.4-5.0); ALKALINE PHOSPHATASE 100 U/L (46-116); ANION GAP 10 mmol/L (8-16); ASPARTATE AMINOTRANSFERASE 13 U/L (15-37); BILIRUBIN,TOTAL 0.1 mg/dL (0.1-1.0); CALCIUM, TOTAL 8.5 mg/dL (8.8-10.5); CARBON DIOXIDE 26 mmol/L (22-29); CHLORIDE 103 mmol/L (98-107); CREATININE 0.76 mg/dL (0.60-1.30); GLOMERULAR FILTR. RATE CALC > 60 mL/min (>60); LIPASE < 10 U/L (16-77); POTASSIUM 3.9 mmol/L (3.5-5.1); SODIUM SERUM 139 mmol/L (136-145); TOTAL PROTEIN, SERUM 7.7 g/dL (6.4-8.2); UREA NITROGEN, BLOOD 6 mg/dL (7-18)
[2024-10-08 09:56] LABS: GLUCOSE,RANDOM 423 mg/dL (70-110)
[2024-10-08 10:21] LABS: APPEARANCE,URINE CLEAR (CLEAR); BILIRUBIN,URINE NEGATIVE (NEGATIVE); COLOR,URINE LIGHT YELLOW (YELLOW); GLUCOSE, URINE (UA) >=1000 mg/dL (NEGATIVE); KETONES,URINE NEGATIVE (NEGATIVE); LEUKOCYTE ESTERASE ,URINE NEGATIVE (NEGATIVE); NITRATE,URINE NEGATIVE (NEGATIVE); OCCULT BLOOD,URINE NEGATIVE (NEGATIVE); PROTEIN,URINE NEGATIVE (NEGATIVE); SPECIFIC GRAVITIY, URINE 1.035 (1.003-1.030); UROBILINOGEN,URINE <=1.0 mg/dL (<=1.0)
[2024-10-08 10:35] LABS: BACTERIA,URINE None Seen /HPF (None Seen); RBC,URINE None Seen /HPF (0-2); SQUAMOUS EPITHELIAL CELL,UR Few /LPF (None Seen); WBC,URINE None Seen /HPF (0-5)
[2024-10-08 10:36] VITALS: BP 121/91; PULSE 102; RESP 18; TEMP 98.7; O2SAT 99
[2024-10-08 11:05] LABS: HCG,QUANTITATIVE 1 mIU/mL (0-6)
== END 2024-10-08 19:03 | disposition left against medical advice (07) ==
LOC: EMS 07:50
DX: R10.10 Upper abdominal pain, unspecified (principal); R19.7 Diarrhea, unspecified; E11.65 Type 2 diabetes mellitus with hyperglycemia; E78.00 Pure hypercholesterolemia, unspecified; I10 Essential (primary) hypertension; F20.9 Schizophrenia, unspecified; F17.210 Nicotine dependence, cigarettes, uncomplicated; Z79.4 Long term (current) use of insulin; Z79.84 Long term (current) use of oral hypoglycemic drugs; Z90.49 Acquired absence of other specified parts of digestive tract; Z79.899 Other long term (current) drug therapy
CPT/HCPCS: 99283; 99406; 80048; 80076; 81001; 83690; 84702; 85025; 36415; 82962; J7030

== ENCOUNTER 2024-10-10 10:41 | Emergency (ER) | payer MEDICAID ==
[~2024-10-10] VITALS: Ht 160 cm; Wt 62.0 kg
[2024-10-10] MEDS: IOHEXOL 9 MG/ML 500 ML BOTTLE PO ONE (11:00)
[2024-10-10 11:06] LABS: BASOPHILS % (AUTO) 0.7 % (0.0-2.0); HEMOGLOBIN 10.3 g/dL (12.0-16.0); LYMPHOCYTES # (AUTO) 2.2 K/uL (1.0-4.8); LYMPHOCYTES % (AUTO) 24.4 % (22.0-44.0); MEAN CORPUSCULAR HEMOGLOBIN 28.4 pg (26.0-34.0); MEAN CORPUSCULAR HGB CONC 32.2 G/dL (31.0-37.0); MEAN CORPUSCULAR VOLUME 88 fL (80-100); MONOCYTES % (AUTO) 10.7 % (2.0-9.0); NEUTROPHILS # (AUTO) 5.5 K/uL (1.8-7.7); NEUTROPHILS % (AUTO) 62.2 % (40.0-70.0); PLATELET COUNT (AUTO) 178 K/uL (150-450); RED BLOOD CELL COUNT(AUTO) 3.62 MIL/uL (4.00-5.20); RED CELL DISTRIBUTION WIDTH 17.9 % (11.5-14.5); WHITE BLOOD COUNT (AUTO) 8.9 K/uL (4.5-11.0)
[2024-10-10] MEDS ORDERED: IOHEXOL 350 MG/ML 100 ML VIAL ONE (11:10)
[2024-10-10] MEDS ORDERED: SODIUM CHLORIDE 0.9% 100 ML ONE (11:10)
[2024-10-10 11:19] LABS: ANION GAP 6 mmol/L (8-16); CALCIUM, TOTAL 8.4 mg/dL (8.8-10.5); CARBON DIOXIDE 27 mmol/L (22-29); CHLORIDE 106 mmol/L (98-107); CREATININE 0.46 mg/dL (0.60-1.30); GLOMERULAR FILTR. RATE CALC > 60 mL/min (>60); GLUCOSE,RANDOM 177 mg/dL (70-110); POTASSIUM 3.9 mmol/L (3.5-5.1); SODIUM SERUM 139 mmol/L (136-145); UREA NITROGEN, BLOOD 5 mg/dL (7-18)
[2024-10-10 11:33] LABS: ALANINE AMINOTRANSFERASE 21 U/L (12-78); ALBUMIN 2.4 g/dL (3.4-5.0); ALKALINE PHOSPHATASE 88 U/L (46-116); ASPARTATE AMINOTRANSFERASE 16 U/L (15-37); BILIRUBIN,TOTAL 0.2 mg/dL (0.1-1.0); HCG,QUANTITATIVE 1 mIU/mL (0-6); LIPASE < 10 U/L (16-77); TOTAL PROTEIN, SERUM 6.1 g/dL (6.4-8.2)
[2024-10-10 11:36] LABS: PROTHROMBIN TIME 10.3 SEC (9.4-11.6)
[2024-10-10] MEDS: ACETAMINOPHEN 1000 MG/ISO-OSM 100 ML IV ONE (12:44)
[2024-10-10 13:32] LABS: APPEARANCE,URINE CLEAR (CLEAR); BILIRUBIN,URINE NEGATIVE (NEGATIVE); COLOR,URINE COLORLESS (YELLOW); GLUCOSE, URINE (UA) 300-500 mg/dL (NEGATIVE); KETONES,URINE NEGATIVE (NEGATIVE); LEUKOCYTE ESTERASE ,URINE NEGATIVE (NEGATIVE); NITRATE,URINE NEGATIVE (NEGATIVE); OCCULT BLOOD,URINE NEGATIVE (NEGATIVE); PROTEIN,URINE NEGATIVE (NEGATIVE); SPECIFIC GRAVITIY, URINE 1.013 (1.003-1.030); UROBILINOGEN,URINE <=1.0 mg/dL (<=1.0)
[2024-10-10 13:40] LABS: AMPHET/METH SCREEN,URINE NEGATIVE (NEGATIVE); BARBITURATE SCREEN, URINE NEGATIVE (NEGATIVE); BENZODIAZEPINES SCREEN,URINE NEGATIVE (NEGATIVE); CANNABINOID SCREEN,URINE NEGATIVE (NEGATIVE); COCAINE SCREEN,URINE NEGATIVE (NEGATIVE); METHADONE SCREEN, URINE NEGATIVE (NEGATIVE); OPIATE SCREEN,URINE NEGATIVE (NEGATIVE); PHENCYCLIDINE SCREEN,URINE NEGATIVE (NEGATIVE)
[2024-10-10 13:49] LABS: ALCOHOL, URINE DRUG SCREEN NEGATIVE (NEGATIVE)
[2024-10-10 14:00] VITALS: TEMP 98.6
[2024-10-10 14:21] LABS: BACTERIA,URINE None Seen /HPF (None Seen); RBC,URINE None Seen /HPF (0-2); SQUAMOUS EPITHELIAL CELL,UR Few /LPF (None Seen); WBC,URINE None Seen /HPF (0-5)
[2024-10-10 14:49] VITALS: BP 119/86; PULSE 88; RESP 20; O2SAT 96
[2024-10-10] MEDS: POLYETHYLENE GLYCOL 3350 17 GM PACKET PO ONE (14:54)
== END 2024-10-10 14:55 | disposition home or self-care (01) ==
LOC: EMS 10:41
DX: K59.00 Constipation, unspecified (principal); R11.0 Nausea; F41.9 Anxiety disorder, unspecified; E11.9 Type 2 diabetes mellitus without complications; E78.00 Pure hypercholesterolemia, unspecified; I10 Essential (primary) hypertension; F20.9 Schizophrenia, unspecified; F17.210 Nicotine dependence, cigarettes, uncomplicated; Z79.4 Long term (current) use of insulin; Z79.84 Long term (current) use of oral hypoglycemic drugs; Z90.49 Acquired absence of other specified parts of digestive tract; Z79.899 Other long term (current) drug therapy
CPT/HCPCS: 99285; 74177; 96365; 71045; 99406; 80048; 80076; 81001; 83690; 84702; 85025; 85610; 85730; 86850; 86900; 86901; 36415; 93005; 80307; Q9967; J7050; J0131

== ENCOUNTER 2024-10-13 04:13 | Emergency (ER) | payer MEDICAID ==
[~2024-10-13] VITALS: Ht 160 cm; Wt 61.8 kg
[2024-10-13 04:27] VITALS: TEMP 98.8
[2024-10-13 04:41] LABS: COVID AG,FIA SOURCE NASAL SWAB
[2024-10-13 04:58] LABS: INFLUENZA TYPE A NEGATIVE FOR TYPE A (NEGATIVE); INFLUENZA TYPE B NEGATIVE FOR TYPE B (NEGATIVE)
[2024-10-13 04:59] LABS: SARS-COV2 (COVID) ANTIGEN,FIA Negative (Negative)
[2024-10-13] MEDS: SODIUM CHLORIDE 0.9% 1,000 ML IV ONE (05:10)
[2024-10-13 05:23] LABS: EOSINOPHILS % (AUTO) 1.8 % (1.0-6.0); HEMATOCRIT 38.1 % (36-46); HEMOGLOBIN 12.2 g/dL (12.0-16.0); LYMPHOCYTES # (AUTO) 3.2 K/uL (1.0-4.8); LYMPHOCYTES % (AUTO) 24.6 % (22.0-44.0); MEAN CORPUSCULAR HEMOGLOBIN 28.6 pg (26.0-34.0); MEAN CORPUSCULAR HGB CONC 31.9 G/dL (31.0-37.0); MEAN CORPUSCULAR VOLUME 90 fL (80-100); MONOCYTES # (AUTO) 0.9 K/uL (0.1-1.0); MONOCYTES % (AUTO) 6.7 % (2.0-9.0); NEUTROPHILS # (AUTO) 8.7 K/uL (1.8-7.7); NEUTROPHILS % (AUTO) 65.9 % (40.0-70.0); PLATELET COUNT (AUTO) 207 K/uL (150-450); RED BLOOD CELL COUNT(AUTO) 4.26 MIL/uL (4.00-5.20); RED CELL DISTRIBUTION WIDTH 16.9 % (11.5-14.5); WHITE BLOOD COUNT (AUTO) 13.2 K/uL (4.5-11.0)
[2024-10-13] MEDS: MORPHINE SULFATE 2 MG/ML SYRINGE IVP ONE (05:23)
[2024-10-13 05:44] LABS: ANION GAP 6 mmol/L (8-16); CALCIUM, TOTAL 8.5 mg/dL (8.8-10.5); CARBON DIOXIDE 28 mmol/L (22-29); CHLORIDE 101 mmol/L (98-107); CREATININE 0.82 mg/dL (0.60-1.30); GLOMERULAR FILTR. RATE CALC > 60 mL/min (>60); SODIUM SERUM 135 mmol/L (136-145); UREA NITROGEN, BLOOD 12 mg/dL (7-18)
[2024-10-13 05:45] LABS: GLUCOSE,RANDOM 509 mg/dL (70-110)
[2024-10-13] MEDS ORDERED: INSULIN REGULAR, HUMAN 100 UNITS/ML IVP ONE (06:00)
[2024-10-13 06:14] VITALS: BP 119/99; PULSE 86; RESP 16; O2SAT 96
[2024-10-13 06:31] LABS: GLUCOMETER DEV NAME(LOC) ER.7; GLUCOSE,POINT OF CARE 364 MG/DL (70-110)
== END 2024-10-13 06:35 | disposition left against medical advice (07) ==
LOC: EMS 04:14
DX: K59.00 Constipation, unspecified (principal); R10.84 Generalized abdominal pain; E11.65 Type 2 diabetes mellitus with hyperglycemia; I10 Essential (primary) hypertension; E78.00 Pure hypercholesterolemia, unspecified; F20.9 Schizophrenia, unspecified; F31.9 Bipolar disorder, unspecified; Z88.5 Allergy status to narcotic agent; Z79.4 Long term (current) use of insulin; Z79.84 Long term (current) use of oral hypoglycemic drugs; Z87.19 Personal history of other diseases of the digestive system; Z90.411 Acquired partial absence of pancreas; Z90.49 Acquired absence of other specified parts of digestive tract; Z79.899 Other long term (current) drug therapy; Z20.822 Contact with and (suspected) exposure to COVID-19
CPT/HCPCS: 99284; 96374; 71045; 96361; 87426; 80048; 82140; 82962 ×2; 85025; 87804; 36415; J2270; J7030; J1815

== ENCOUNTER 2024-10-24 16:06 | Inpatient (IN) | payer MEDICAID ==
[~2024-10-24] VITALS: Ht 160 cm; Wt 67.7 kg
[2024-10-24] MEDS ORDERED: 0.9% SODIUM CHLORIDE 10 ML SYRINGE IVP PRN (17:45)
[2024-10-24] MEDS ORDERED: PIPERACILLIN/TAZO 3.375 GM/D5W 50 ML IV SCH (18:00)
[2024-10-24 18:06] LABS: BASOPHILS % (AUTO) 0.6 % (0.0-2.0); EOSINOPHILS % (AUTO) 2.9 % (1.0-6.0); HEMATOCRIT 36.6 % (36-46); HEMOGLOBIN 11.6 g/dL (12.0-16.0); LYMPHOCYTES % (AUTO) 25.6 % (22.0-44.0); MEAN CORPUSCULAR HGB CONC 31.8 G/dL (31.0-37.0); MEAN CORPUSCULAR VOLUME 91 fL (80-100); MONOCYTES # (AUTO) 1.1 K/uL (0.1-1.0); MONOCYTES % (AUTO) 7.1 % (2.0-9.0); NEUTROPHILS % (AUTO) 63.8 % (40.0-70.0); PLATELET COUNT (AUTO) 276 K/uL (150-450); RED BLOOD CELL COUNT(AUTO) 4.02 MIL/uL (4.00-5.20); RED CELL DISTRIBUTION WIDTH 17.1 % (11.5-14.5); WHITE BLOOD COUNT (AUTO) 15.6 K/uL (4.5-11.0)
[2024-10-24 18:09] LABS: ANION GAP 8 mmol/L (8-16); CALCIUM, TOTAL 8.7 mg/dL (8.8-10.5); CARBON DIOXIDE 24 mmol/L (22-29); CHLORIDE 104 mmol/L (98-107); CREATININE 0.62 mg/dL (0.60-1.30); GLOMERULAR FILTR. RATE CALC > 60 mL/min (>60); GLUCOSE,RANDOM 278 mg/dL (70-110); POTASSIUM 4.5 mmol/L (3.5-5.1); SODIUM SERUM 136 mmol/L (136-145); UREA NITROGEN, BLOOD 9 mg/dL (7-18)
[2024-10-24 18:18] LABS: ALANINE AMINOTRANSFERASE 21 U/L (12-78); ALBUMIN 2.8 g/dL (3.4-5.0); ALKALINE PHOSPHATASE 118 U/L (46-116); ASPARTATE AMINOTRANSFERASE 14 U/L (15-37); BILIRUBIN,TOTAL 0.2 mg/dL (0.1-1.0); TOTAL PROTEIN, SERUM 7.3 g/dL (6.4-8.2); TROPONIN I-HIGH SENSITIVITY Less Than 4 ng/L (<51)
[2024-10-24 18:20] LABS: LACTIC ACID 2.4 mmol/L (0.4-2.0)
[2024-10-24 18:24] LABS: APPEARANCE,URINE CLEAR (CLEAR); BILIRUBIN,URINE NEGATIVE (NEGATIVE); COLOR,URINE COLORLESS (YELLOW); GLUCOSE, URINE (UA) >=1000 mg/dL (NEGATIVE); KETONES,URINE NEGATIVE (NEGATIVE); LEUKOCYTE ESTERASE ,URINE NEGATIVE (NEGATIVE); NITRATE,URINE NEGATIVE (NEGATIVE); OCCULT BLOOD,URINE NEGATIVE (NEGATIVE); PROTEIN,URINE NEGATIVE (NEGATIVE); SPECIFIC GRAVITIY, URINE 1.011 (1.003-1.030); UROBILINOGEN,URINE <=1.0 mg/dL (<=1.0)
[2024-10-24 18:38] LABS: BACTERIA,URINE None Seen /HPF (None Seen); RBC,URINE None Seen /HPF (0-2); SQUAMOUS EPITHELIAL CELL,UR Rare /LPF (None Seen); WBC,URINE None Seen /HPF (0-5)
[2024-10-24] MEDS ORDERED: MORPHINE SULFATE 10 MG/ML VIAL IVP PRN (18:45)
[2024-10-24] MEDS ORDERED: DEXTROSE 50%-WATER 25 GM/50 ML SYRINGE IVP PRN (18:45)
[2024-10-24] MEDS: SODIUM CHLORIDE 0.9% 1,850 ML IV ONE (19:21)
[2024-10-24] MEDS: LORazepam 2 MG/ML VIAL IVP ONE (19:25)
[2024-10-24] MEDS: KETOROLAC TROMETHAMINE 30 MG/ML VIAL IVP ONE (19:26)
[2024-10-24] MEDS: PIPERACILLIN/TAZO 3.375 GM/D5W 50 ML IV SCH (19:26)
[2024-10-24] MEDS: DOCUSATE SODIUM 100 MG CAPSULE PO SCH (21:00)
[2024-10-24] MEDS: MORPHINE SULFATE 2 MG/ML SYRINGE IVP PRN (21:03)
[2024-10-24] MEDS: INSULIN GLARGINE,HUM.REC.ANLOG 100 UNITS/ML SQ SCH (21:51)
[2024-10-24 22:05] LABS: GLUCOMETER DEV NAME(LOC) ER.7; GLUCOSE,POINT OF CARE 314 MG/DL (70-110)
[2024-10-24 22:21] VITALS: BP 140/88; PULSE 95; RESP 18; TEMP 97.9; O2SAT 99
[2024-10-24] MEDS: ACETAMINOPHEN 325 MG TABLET PO PRN (22:21)
[2024-10-24] MEDS: RINGERS SOLUTION,LACTATED 1,000 ML IV SCH (22:24)
[2024-10-24 22:51] LABS: LIPASE < 10 U/L (16-77)
[2024-10-24 23:40] LABS: GLUCOMETER DEV NAME(LOC) 6N.1B; GLUCOSE,POINT OF CARE 239 MG/DL (70-110)
[2024-10-24] MEDS: INSULIN LISPRO 100 UNITS/ML SQ PRN (23:58)
[2024-10-25] MEDS: HEPARIN SODIUM,PORCINE 5,000 UNITS/ML VIAL SQ SCH
[2024-10-25 01:34] LABS: AMPHET/METH SCREEN,URINE NEGATIVE (NEGATIVE); BARBITURATE SCREEN, URINE NEGATIVE (NEGATIVE); BENZODIAZEPINES SCREEN,URINE NEGATIVE (NEGATIVE); CANNABINOID SCREEN,URINE NEGATIVE (NEGATIVE); COCAINE SCREEN,URINE NEGATIVE (NEGATIVE); METHADONE SCREEN, URINE NEGATIVE (NEGATIVE); OPIATE SCREEN,URINE POSITIVE (NEGATIVE); PHENCYCLIDINE SCREEN,URINE NEGATIVE (NEGATIVE)
[2024-10-25 01:40] LABS: ALCOHOL, URINE DRUG SCREEN NEGATIVE (NEGATIVE)
[2024-10-25 05:58] VITALS: BP 146/97; PULSE 95; RESP 20; TEMP 98.1; O2SAT 98
[2024-10-25 07:30] LABS: BASOPHILS % (AUTO) 1.3 % (0.0-2.0); EOSINOPHILS % (AUTO) 3.7 % (1.0-6.0); HEMOGLOBIN 12.3 g/dL (12.0-16.0); LYMPHOCYTES # (AUTO) 2.7 K/uL (1.0-4.8); LYMPHOCYTES % (AUTO) 22.3 % (22.0-44.0); MEAN CORPUSCULAR HEMOGLOBIN 29.6 pg (26.0-34.0); MEAN CORPUSCULAR HGB CONC 32.4 G/dL (31.0-37.0); MEAN CORPUSCULAR VOLUME 91 fL (80-100); MONOCYTES # (AUTO) 0.6 K/uL (0.1-1.0); MONOCYTES % (AUTO) 5.1 % (2.0-9.0); NEUTROPHILS # (AUTO) 8.3 K/uL (1.8-7.7); NEUTROPHILS % (AUTO) 67.6 % (40.0-70.0); PLATELET COUNT (AUTO) 264 K/uL (150-450); RED BLOOD CELL COUNT(AUTO) 4.16 MIL/uL (4.00-5.20); WHITE BLOOD COUNT (AUTO) 12.3 K/uL (4.5-11.0)
[2024-10-25 07:44] LABS: ANION GAP 10 mmol/L (8-16); CALCIUM, TOTAL 9.1 mg/dL (8.8-10.5); CARBON DIOXIDE 22 mmol/L (22-29); CHLORIDE 106 mmol/L (98-107); CREATININE 0.53 mg/dL (0.60-1.30); GLOMERULAR FILTR. RATE CALC > 60 mL/min (>60); GLUCOSE,RANDOM 97 mg/dL (70-110); POTASSIUM 4.1 mmol/L (3.5-5.1); SODIUM SERUM 138 mmol/L (136-145); UREA NITROGEN, BLOOD 6 mg/dL (7-18)
[2024-10-25 08:12] VITALS: BP 139/97; PULSE 101; RESP 18; TEMP 98.7; O2SAT 100
[2024-10-25] MEDS ORDERED: PANTOPRAZOLE SODIUM 40 MG/VIAL IVP SCH (09:00)
[2024-10-25 10:01] LABS: GLUCOMETER DEV NAME(LOC) 5S.1D; GLUCOSE,POINT OF CARE 99 MG/DL (70-110)
== END 2024-10-25 08:15 | disposition left against medical advice (07) | DRG 720 ==
LOC: EMS 16:06 → EDH 18:33 → 4E 22:07
PROVIDERS: ADMIT Internal Medicine; ATTEND Internal Medicine
DX: A41.9 Sepsis, unspecified organism (principal); E87.20 Acidosis, unspecified; Z53.29 Procedure and treatment not carried out because of patient's decision for other reasons; E11.65 Type 2 diabetes mellitus with hyperglycemia; E78.00 Pure hypercholesterolemia, unspecified; F20.9 Schizophrenia, unspecified; F31.9 Bipolar disorder, unspecified; I10 Essential (primary) hypertension; K52.9 Noninfective gastroenteritis and colitis, unspecified; K86.1 Other chronic pancreatitis; F17.210 Nicotine dependence, cigarettes, uncomplicated; K29.80 Duodenitis without bleeding; Z88.8 Allergy status to other drugs, medicaments and biological substances; Z79.899 Other long term (current) drug therapy; Z83.3 Family history of diabetes mellitus; Z90.411 Acquired partial absence of pancreas; Z90.49 Acquired absence of other specified parts of digestive tract; Z98.891 History of uterine scar from previous surgery
CPT/HCPCS: 71045; 74177; 80048; 80076; 80307; 81001; 82962; 83605; 83690; 83735; 84145; 84484; 85025; 87040; 87340; 93005; 96361; 96372; 96374; 96375; 99291; G0378; J1815; J1885; J2060; J2270; J2543; J7120; 36415-L1; 36415-TC

== ENCOUNTER 2024-12-26 08:41 | Emergency (ER) | payer MEDICAID ==
[~2024-12-26] VITALS: Ht 154.9 cm; Wt 56.8 kg
[~2024-12-26 08:41] MED LIST changes: -DULO-113 PO; +DULO60CA98 PO; +OMEP-148 PO; -OMEP20 PO
[2024-12-26] MEDS ORDERED: FAMO20 PO (08:54)
[2024-12-26] MEDS ORDERED: SERT-440 PO (08:54)
[2024-12-26] MEDS ORDERED: GABA-1404 PO (08:54)
[2024-12-26] MEDS ORDERED: PIOG1TAB PO (08:54)
[2024-12-26] MEDS ORDERED: ACET-66 PO (08:54)
[2024-12-26] MEDS ORDERED: TRAZ-252 PO (08:54)
[2024-12-26] MEDS ORDERED: QUET400T PO (08:54)
[2024-12-26] MEDS ORDERED: INSU100V42 SQ (08:54)
[2024-12-26] MEDS ORDERED: TRAZ150T79 PO (08:54)
[2024-12-26] MEDS ORDERED: OMEP20CA12 PO (08:54)
[2024-12-26] MEDS ORDERED: NALO4SPR22 NASAL (08:54)
[2024-12-26] MEDS ORDERED: METH-811 PO (08:54)
[2024-12-26 08:56] VITALS: TEMP 98.1
[2024-12-26 10:42] LABS: BASOPHILS % (AUTO) 1.4 % (0.0-2.0); EOSINOPHILS % (AUTO) 1.5 % (1.0-6.0); HEMATOCRIT 39.7 % (36-46); HEMOGLOBIN 12.9 g/dL (12.0-16.0); LYMPHOCYTES # (AUTO) 3.8 K/uL (1.0-4.8); LYMPHOCYTES % (AUTO) 37.6 % (22.0-44.0); MEAN CORPUSCULAR HEMOGLOBIN 28.9 pg (26.0-34.0); MEAN CORPUSCULAR HGB CONC 32.6 G/dL (31.0-37.0); MEAN CORPUSCULAR VOLUME 89 fL (80-100); MONOCYTES # (AUTO) 0.4 K/uL (0.1-1.0); NEUTROPHILS # (AUTO) 5.7 K/uL (1.8-7.7); NEUTROPHILS % (AUTO) 55.5 % (40.0-70.0); PLATELET COUNT (AUTO) 163 K/uL (150-450); RED BLOOD CELL COUNT(AUTO) 4.47 MIL/uL (4.00-5.20); RED CELL DISTRIBUTION WIDTH 13.5 % (11.5-14.5); WHITE BLOOD COUNT (AUTO) 10.2 K/uL (4.5-11.0)
[2024-12-26 10:52] LABS: ANION GAP 8 mmol/L (8-16); CALCIUM, TOTAL 9.6 mg/dL (8.8-10.5); CARBON DIOXIDE 29 mmol/L (22-29); CHLORIDE 95 mmol/L (98-107); CREATININE 0.69 mg/dL (0.60-1.30); GLOMERULAR FILTR. RATE CALC > 60 mL/min (>60); GLUCOSE,RANDOM 315 mg/dL (70-110); POTASSIUM 4.9 mmol/L (3.5-5.1); SODIUM SERUM 132 mmol/L (136-145); UREA NITROGEN, BLOOD 7 mg/dL (7-18)
[2024-12-26 11:00] VITALS: BP 135/87; PULSE 87; RESP 16; O2SAT 98
[2024-12-26 11:03] LABS: HCG,QUANTITATIVE < 1 mIU/mL (0-6); LIPASE 11 U/L (16-77)
[2024-12-26] MEDS: SODIUM CHLORIDE 0.9% 1,000 ML IV ONE (11:04)
[2024-12-26] MEDS: LORazepam 1 MG TABLET PO ONE (11:05)
[2024-12-26] MEDS: KETOROLAC TROMETHAMINE 60 MG/2 ML VIAL IM ONE (11:05)
== END 2024-12-26 13:49 | disposition left against medical advice (07) ==
LOC: EMS 08:44
DX: R53.1 Weakness (principal); M79.604 Pain in right leg; M79.605 Pain in left leg; R51.9 Headache, unspecified; E11.9 Type 2 diabetes mellitus without complications; I10 Essential (primary) hypertension; E78.00 Pure hypercholesterolemia, unspecified; F20.9 Schizophrenia, unspecified; Z88.5 Allergy status to narcotic agent; Z79.84 Long term (current) use of oral hypoglycemic drugs; Z90.49 Acquired absence of other specified parts of digestive tract; Z79.899 Other long term (current) drug therapy
CPT/HCPCS: 99285; 96360; 70450; 71045; 80048; 83690; 84702; 85025; 36415; 82962; 96372; J1885; J7030

== ENCOUNTER 2025-02-07 06:47 | Emergency (ER) | payer MEDICAID ==
[~2025-02-07] VITALS: Ht 160 cm; Wt 60.0 kg
[~2025-02-07 06:47] MED LIST changes: +ACET-66 PO; -CHOL10002 PO; -CLOZ100T11 PO; -DOCU-385 PO; -EMPA10TA3 PO; +FAMO20 PO; +GABA-1404 PO; -GABA600T PO; -HYDR-4069 PO; -INSNOV SQ; +INSU100V42 SQ; -INSU3INS3 SQ; -LANC-493 TP; -LISI10TA24 PO; -METF-446 PO; +METH-811 PO; -NALO25TA4 PO; +NALO4SPR22 NASAL; -NEED-462 SQ; -OMEP-148 PO; +OMEP20CA12 PO; -ONDA-104 PO; +PIOG1TAB PO; +QUET400T PO; -QUET400T13 PO; +SERT-440 PO; +TRAZ-252 PO; -TRAZ-257 PO; +TRAZ150T79 PO
[2025-02-07 07:23] VITALS: BP 154/110; PULSE 112; RESP 16; TEMP 98.2; O2SAT 98
[2025-02-07 07:43] LABS: BASOPHILS % (AUTO) 0.8 % (0.0-2.0); EOSINOPHILS % (AUTO) 1.8 % (1.0-6.0); HEMATOCRIT 41.3 % (36-46); HEMOGLOBIN 13.6 g/dL (12.0-16.0); LYMPHOCYTES # (AUTO) 2.3 K/uL (1.0-4.8); LYMPHOCYTES % (AUTO) 28.5 % (22.0-44.0); MEAN CORPUSCULAR HEMOGLOBIN 28.9 pg (26.0-34.0); MEAN CORPUSCULAR HGB CONC 32.8 G/dL (31.0-37.0); MEAN CORPUSCULAR VOLUME 88 fL (80-100); MONOCYTES # (AUTO) 0.4 K/uL (0.1-1.0); MONOCYTES % (AUTO) 4.8 % (2.0-9.0); NEUTROPHILS # (AUTO) 5.1 K/uL (1.8-7.7); NEUTROPHILS % (AUTO) 64.1 % (40.0-70.0); PLATELET COUNT (AUTO) 174 K/uL (150-450); RED CELL DISTRIBUTION WIDTH 14.4 % (11.5-14.5)
[2025-02-07] MEDS: SODIUM CHLORIDE 0.9% 1,950 ML IV ONE (07:43)
[2025-02-07] MEDS: KETOROLAC TROMETHAMINE 30 MG/ML VIAL IVP ONE (07:43)
[2025-02-07 07:53] LABS: ANION GAP 6 mmol/L (8-16); CALCIUM, TOTAL 8.4 mg/dL (8.8-10.5); CARBON DIOXIDE 29 mmol/L (22-29); CHLORIDE 98 mmol/L (98-107); CREATININE 0.73 mg/dL (0.60-1.30); GLOMERULAR FILTR. RATE CALC > 60 mL/min (>60); GLUCOSE,RANDOM 251 mg/dL (70-110); POTASSIUM 4.1 mmol/L (3.5-5.1); SODIUM SERUM 133 mmol/L (136-145); UREA NITROGEN, BLOOD 4 mg/dL (7-18)
[2025-02-07 07:57] LABS: ALANINE AMINOTRANSFERASE 19 U/L (12-78); ALKALINE PHOSPHATASE 112 U/L (46-116); ASPARTATE AMINOTRANSFERASE 12 U/L (15-37); BILIRUBIN,TOTAL 0.2 mg/dL (0.1-1.0); LIPASE < 10 U/L (16-77); TOTAL PROTEIN, SERUM 7.1 g/dL (6.4-8.2)
[2025-02-07 08:03] LABS: LACTIC ACID 2.6 mmol/L (0.4-2.0)
[2025-02-07 08:49] LABS: APPEARANCE,URINE CLEAR (CLEAR); BILIRUBIN,URINE NEGATIVE (NEGATIVE); COLOR,URINE COLORLESS (YELLOW); GLUCOSE, URINE (UA) >=1000 mg/dL (NEGATIVE); KETONES,URINE NEGATIVE (NEGATIVE); LEUKOCYTE ESTERASE ,URINE TRACE (NEGATIVE); NITRATE,URINE NEGATIVE (NEGATIVE); OCCULT BLOOD,URINE NEGATIVE (NEGATIVE); PH,URINE 7.5 (5.0-8.0); PROTEIN,URINE NEGATIVE (NEGATIVE); SPECIFIC GRAVITIY, URINE 1.013 (1.003-1.030); UROBILINOGEN,URINE <=1.0 mg/dL (<=1.0)
[2025-02-07 08:57] LABS: BACTERIA,URINE None Seen /HPF (None Seen); RBC,URINE None Seen /HPF (0-2); SQUAMOUS EPITHELIAL CELL,UR Few /LPF (None Seen); WBC,URINE None Seen /HPF (0-5)
[2025-02-07] MEDS: MORPHINE SULFATE 2 MG/ML SYRINGE IVP ONE (09:23)
[2025-02-07] MEDS: ONDANSETRON HCL 4 MG/2 ML VIAL IVP ONE (09:23)
[2025-02-08] MEDS ORDERED: METO25XL PO (13:00)
[2025-02-08] MEDS ORDERED: ONDA-104 PO (13:04)
== END 2025-02-07 12:53 | disposition left against medical advice (07) ==
LOC: EMS 06:49
DX: R10.31 Right lower quadrant pain (principal); E11.9 Type 2 diabetes mellitus without complications; I10 Essential (primary) hypertension; F25.9 Schizoaffective disorder, unspecified; E78.00 Pure hypercholesterolemia, unspecified; Z88.5 Allergy status to narcotic agent; Z79.84 Long term (current) use of oral hypoglycemic drugs; Z90.49 Acquired absence of other specified parts of digestive tract; Z79.899 Other long term (current) drug therapy
CPT/HCPCS: 99285; 74176; 96374; 96361; 96375; 71045; 80048; 80076; 81001; 83605; 83690; 85025; 36415; J1885; J2270; J2405; J7030

== ENCOUNTER 2025-02-08 08:03 | Emergency (ER) | payer MEDICAID ==
[~2025-02-08] VITALS: Ht 160 cm; Wt 56.8 kg
[2025-02-08 09:01] LABS: BASOPHILS % (AUTO) 0.7 % (0.0-2.0); EOSINOPHILS % (AUTO) 1.1 % (1.0-6.0); HEMATOCRIT 44.5 % (36-46); HEMOGLOBIN 14.8 g/dL (12.0-16.0); LYMPHOCYTES # (AUTO) 2.3 K/uL (1.0-4.8); LYMPHOCYTES % (AUTO) 27.1 % (22.0-44.0); MEAN CORPUSCULAR HEMOGLOBIN 29.2 pg (26.0-34.0); MEAN CORPUSCULAR HGB CONC 33.3 G/dL (31.0-37.0); MEAN CORPUSCULAR VOLUME 88 fL (80-100); MONOCYTES # (AUTO) 0.4 K/uL (0.1-1.0); NEUTROPHILS # (AUTO) 5.5 K/uL (1.8-7.7); NEUTROPHILS % (AUTO) 66.1 % (40.0-70.0); PLATELET COUNT (AUTO) 200 K/uL (150-450); RED BLOOD CELL COUNT(AUTO) 5.06 MIL/uL (4.00-5.20); RED CELL DISTRIBUTION WIDTH 14.9 % (11.5-14.5); WHITE BLOOD COUNT (AUTO) 8.3 K/uL (4.5-11.0)
[2025-02-08] MEDS: SODIUM CHLORIDE 0.9% 1,000 ML IV ONE ×2 (09:01→09:58)
[2025-02-08 09:08] LABS: ANION GAP 8 mmol/L (8-16); CALCIUM, TOTAL 8.5 mg/dL (8.8-10.5); CARBON DIOXIDE 26 mmol/L (22-29); CHLORIDE 98 mmol/L (98-107); CREATININE 0.95 mg/dL (0.60-1.30); GLOMERULAR FILTR. RATE CALC > 60 mL/min (>60); GLUCOSE,RANDOM 341 mg/dL (70-110); POTASSIUM 3.5 mmol/L (3.5-5.1); SODIUM SERUM 132 mmol/L (136-145); UREA NITROGEN, BLOOD 9 mg/dL (7-18)
[2025-02-08 10:10] LABS: APPEARANCE,URINE CLEAR (CLEAR); BILIRUBIN,URINE NEGATIVE (NEGATIVE); COLOR,URINE LIGHT YELLOW (YELLOW); GLUCOSE, URINE (UA) >=1000 mg/dL (NEGATIVE); KETONES,URINE TRACE mg/dL (NEGATIVE); LEUKOCYTE ESTERASE ,URINE NEGATIVE (NEGATIVE); NITRATE,URINE NEGATIVE (NEGATIVE); OCCULT BLOOD,URINE NEGATIVE (NEGATIVE); PROTEIN,URINE NEGATIVE (NEGATIVE); SPECIFIC GRAVITIY, URINE 1.022 (1.003-1.030); UROBILINOGEN,URINE <=1.0 mg/dL (<=1.0)
[2025-02-08 10:14] LABS: BACTERIA,URINE None Seen /HPF (None Seen); RBC,URINE None Seen /HPF (0-2); SQUAMOUS EPITHELIAL CELL,UR Rare /LPF (None Seen); WBC,URINE None Seen /HPF (0-5)
[2025-02-08 10:17] LABS: ALCOHOL, URINE DRUG SCREEN NEGATIVE (NEGATIVE); AMPHET/METH SCREEN,URINE NEGATIVE (NEGATIVE); BARBITURATE SCREEN, URINE NEGATIVE (NEGATIVE); BENZODIAZEPINES SCREEN,URINE NEGATIVE (NEGATIVE); CANNABINOID SCREEN,URINE NEGATIVE (NEGATIVE); COCAINE SCREEN,URINE NEGATIVE (NEGATIVE); METHADONE SCREEN, URINE NEGATIVE (NEGATIVE); OPIATE SCREEN,URINE NEGATIVE (NEGATIVE); PHENCYCLIDINE SCREEN,URINE NEGATIVE (NEGATIVE)
[2025-02-08] MEDS: LORazepam 2 MG/ML VIAL IVP ONE (10:22)
[2025-02-08] MEDS: METOPROLOL TARTRATE 25 MG TABLET PO ONE ×2 (11:19→12:02)
[2025-02-08] MEDS ORDERED: METO25XL PO (13:00)
[2025-02-08] MEDS ORDERED: ONDA-104 PO (13:04)
[2025-02-08] MEDS: METOPROLOL TARTRATE 5 MG/5 ML VIAL IVP ONE (13:08)
[2025-02-08] MEDS: ONDANSETRON HCL 4 MG/2 ML VIAL IVP ONE (13:08)
[2025-02-08 13:19] VITALS: BP 138/90; PULSE 96; RESP 16; O2SAT 99
== END 2025-02-08 13:20 | disposition home or self-care (01) ==
LOC: EMS 08:03
DX: R10.32 Left lower quadrant pain (principal); I10 Essential (primary) hypertension; E11.9 Type 2 diabetes mellitus without complications; E78.00 Pure hypercholesterolemia, unspecified; F20.9 Schizophrenia, unspecified; F31.9 Bipolar disorder, unspecified; F17.210 Nicotine dependence, cigarettes, uncomplicated; Z90.411 Acquired partial absence of pancreas; Z90.49 Acquired absence of other specified parts of digestive tract; Z79.899 Other long term (current) drug therapy; Z91.09 Other allergy status, other than to drugs and biological substances
CPT/HCPCS: 99285; 96374; 96375; 71045; 96361; 80048; 81001; 85025; 36415; 93005; 80307; J2060; J3490; J2405; J7030

== ENCOUNTER → 2025-02-14 | Emergency (ER) | payer MEDICAID ==
[~2025-02-14] VITALS: Ht 160 cm; Wt 57.3 kg
[~2025-02-14] MED LIST changes: +0.9% SODIUM CHLORIDE 10 ML SYRINGE IVP ONE; +IOHEXOL 350 MG/ML 100 ML VIAL ONE; +METO25XL PO; +ONDA-104 PO; +SODIUM CHLORIDE 0.9% 100 ML ONE
[2025-02-14 09:26] VITALS: TEMP 98.5
[2025-02-14 09:46] LABS: GLUCOMETER DEV NAME(LOC) ERT.7; GLUCOSE,POINT OF CARE 275 MG/DL (70-110)
[2025-02-14] MEDS: SODIUM CHLORIDE 0.9% 1,000 ML IV ONE (10:01)
[2025-02-14] MEDS: MAG HYDROX/ALUMINUM HYD/SIMETH 30 ML SUSPENSION UDCUP PO ONE (10:02)
[2025-02-14] MEDS: PROPARACAINE HCL 0.5% 15 ML OPHTHALMIC SOLUTION OU ONE (10:03)
[2025-02-14] MEDS: ONDANSETRON HCL 4 MG/2 ML VIAL IVP ONE (10:03)
[2025-02-14] MEDS: FAMOTIDINE 20 MG/2 ML VIAL IVP ONE (10:04)
[2025-02-14] MEDS: KETOROLAC TROMETHAMINE 30 MG/ML VIAL IVP ONE (10:04)
[2025-02-14] MEDS: FLUORESCEIN SODIUM 1 MG STRIP OU ONE (10:05)
[2025-02-14 10:09] LABS: BASOPHILS % (AUTO) 0.5 % (0.0-2.0); EOSINOPHILS % (AUTO) 2.1 % (1.0-6.0); HEMATOCRIT 39.3 % (36-46); HEMOGLOBIN 13.1 g/dL (12.0-16.0); LYMPHOCYTES # (AUTO) 2.4 K/uL (1.0-4.8); LYMPHOCYTES % (AUTO) 31.4 % (22.0-44.0); MEAN CORPUSCULAR HEMOGLOBIN 29.6 pg (26.0-34.0); MEAN CORPUSCULAR HGB CONC 33.4 G/dL (31.0-37.0); MEAN CORPUSCULAR VOLUME 89 fL (80-100); MONOCYTES # (AUTO) 0.5 K/uL (0.1-1.0); MONOCYTES % (AUTO) 6.7 % (2.0-9.0); NEUTROPHILS # (AUTO) 4.5 K/uL (1.8-7.7); NEUTROPHILS % (AUTO) 59.3 % (40.0-70.0); PLATELET COUNT (AUTO) 200 K/uL (150-450); RED BLOOD CELL COUNT(AUTO) 4.44 MIL/uL (4.00-5.20); WHITE BLOOD COUNT (AUTO) 7.6 K/uL (4.5-11.0)
[2025-02-14 10:15] LABS: ANION GAP 6 mmol/L (8-16); CARBON DIOXIDE 30 mmol/L (22-29); CHLORIDE 100 mmol/L (98-107); CREATININE 0.69 mg/dL (0.60-1.30); GLOMERULAR FILTR. RATE CALC > 60 mL/min (>60); GLUCOSE,RANDOM 316 mg/dL (70-110); POTASSIUM 3.7 mmol/L (3.5-5.1); SODIUM SERUM 136 mmol/L (136-145); UREA NITROGEN, BLOOD 6 mg/dL (7-18)
[2025-02-14 10:21] LABS: ALANINE AMINOTRANSFERASE 24 U/L (12-78); ALBUMIN 3.2 g/dL (3.4-5.0); ALKALINE PHOSPHATASE 106 U/L (46-116); ASPARTATE AMINOTRANSFERASE 21 U/L (15-37); BILIRUBIN,TOTAL 0.2 mg/dL (0.1-1.0); LIPASE < 10 U/L (16-77); TOTAL PROTEIN, SERUM 7.8 g/dL (6.4-8.2)
[2025-02-14] MEDS: MORPHINE SULFATE 2 MG/ML SYRINGE IVP ONE (10:42)
[2025-02-14 11:38] VITALS: BP 145/91; PULSE 96; RESP 19; O2SAT 98
== END | disposition left against medical advice (07) ==
LOC: EMS 09:25 → UNDOADMIN 11:54 → EDH 11:54 → UNDODISIN 12:11
DX: K80.20 Calculus of gallbladder without cholecystitis without obstruction (principal); R10.33 Periumbilical pain; H53.8 Other visual disturbances; E11.9 Type 2 diabetes mellitus without complications; I10 Essential (primary) hypertension; E78.00 Pure hypercholesterolemia, unspecified; E78.5 Hyperlipidemia, unspecified; Z98.890 Other specified postprocedural states
CPT/HCPCS: 99285; 70450; 96374; 96375; 96361; 80048; 80076; 82962; 83690; 84703; 85025; 36415; 72125; 74177; J1885; Q9967; J3490; J2270; J2405; J7030; J7050

== ENCOUNTER 2025-03-08 17:35 | Emergency (ER) | payer MEDICAID ==
[~2025-03-08] VITALS: Ht 160 cm; Wt 60.3 kg
[~2025-03-08 17:35] MED LIST changes: -0.9% SODIUM CHLORIDE 10 ML SYRINGE IVP ONE; -IOHEXOL 350 MG/ML 100 ML VIAL ONE; -LATA2.5D14 OU; +LATA2.5D7 OU; -SODIUM CHLORIDE 0.9% 100 ML ONE
[2025-03-08 17:50] VITALS: TEMP 98.5
[2025-03-08] MEDS ORDERED: IOHEXOL 350 MG/ML 100 ML VIAL ONE (17:51)
[2025-03-08 18:13] LABS: PLATELET COUNT (AUTO) 204 K/uL (150-450); RED BLOOD CELL COUNT(AUTO) 3.92 MIL/uL (4.00-5.20); RED CELL DISTRIBUTION WIDTH 15.6 % (11.5-14.5); WHITE BLOOD COUNT (AUTO) 6.3 K/uL (4.5-11.0)
[2025-03-08] MEDS: ACETAMINOPHEN 1000 MG/ISO-OSM 100 ML IV ONE (18:18)
[2025-03-08 18:20] LABS: APPEARANCE,URINE CLEAR (CLEAR); GLUCOSE, URINE (UA) >=1000 mg/dL (NEGATIVE); LEUKOCYTE ESTERASE ,URINE NEGATIVE (NEGATIVE); NITRATE,URINE NEGATIVE (NEGATIVE); OCCULT BLOOD,URINE NEGATIVE (NEGATIVE); SPECIFIC GRAVITIY, URINE 1.015 (1.003-1.030)
[2025-03-08 18:25] VITALS: BP 140/91; PULSE 91; RESP 18; O2SAT 98
[2025-03-08 18:27] LABS: CALCIUM, TOTAL 8.6 mg/dL (8.8-10.5); CREATININE 0.78 mg/dL (0.60-1.30); GLOMERULAR FILTR. RATE CALC > 60 mL/min (>60); GLUCOSE,RANDOM 361 mg/dL (70-110); SODIUM SERUM 139 mmol/L (136-145); UREA NITROGEN, BLOOD 4 mg/dL (7-18)
[2025-03-08 18:39] LABS: SQUAMOUS EPITHELIAL CELL,UR Few /LPF (None Seen)
[2025-03-08 18:40] LABS: ASPARTATE AMINOTRANSFERASE 23 U/L (15-37); HCG,QUANTITATIVE 1 mIU/mL (0-6); TOTAL PROTEIN, SERUM 6.4 g/dL (6.4-8.2)
[2025-03-08] MEDS: SODIUM CHLORIDE 0.9% 1,000 ML IV ONE (18:40)
== END 2025-03-08 19:53 | disposition left against medical advice (07) ==
LOC: EMS 17:38
DX: F41.9 Anxiety disorder, unspecified (principal); G89.18 Other acute postprocedural pain; F31.9 Bipolar disorder, unspecified; E11.9 Type 2 diabetes mellitus without complications; E78.00 Pure hypercholesterolemia, unspecified; I10 Essential (primary) hypertension; F20.9 Schizophrenia, unspecified; F17.210 Nicotine dependence, cigarettes, uncomplicated; K58.9 Irritable bowel syndrome, unspecified; N89.8 Other specified noninflammatory disorders of vagina; Z90.49 Acquired absence of other specified parts of digestive tract; Z90.411 Acquired partial absence of pancreas; Z87.19 Personal history of other diseases of the digestive system; Z79.899 Other long term (current) drug therapy; Z98.890 Other specified postprocedural states
CPT/HCPCS: 99285; 74177; 96374; 96361; 80048; 80076; 81001; 82962; 83690; 84702; 85025; 85610; 85730; 36415; Q9967; J7030; J0131

== ENCOUNTER 2025-04-14 17:08 | Emergency (ER) | payer MEDICAID ==
[~2025-04-14] VITALS: Ht 160 cm; Wt 58.2 kg
[~2025-04-14 17:08] MED LIST changes: +DULO60CA73 PO; -DULO60CA98 PO
[2025-04-14] MEDS: SODIUM CHLORIDE 0.9% 1,000 ML IV ONE (18:15)
[2025-04-14] MEDS: ONDANSETRON HCL 4 MG/2 ML VIAL IVP ONE (18:15)
[2025-04-14 18:36] LABS: PLATELET COUNT (AUTO) 161 K/uL (150-450); RED BLOOD CELL COUNT(AUTO) 4.03 MIL/uL (4.00-5.20); RED CELL DISTRIBUTION WIDTH 14.9 % (11.5-14.5); WHITE BLOOD COUNT (AUTO) 7.7 K/uL (4.5-11.0)
[2025-04-14 18:52] LABS: CALCIUM, TOTAL 8.2 mg/dL (8.8-10.5); CREATININE 0.63 mg/dL (0.60-1.30); GLOMERULAR FILTR. RATE CALC > 60 mL/min (>60); GLUCOSE,RANDOM 282 mg/dL (70-110); SODIUM SERUM 137 mmol/L (136-145); UREA NITROGEN, BLOOD 2 mg/dL (7-18)
[2025-04-14 19:05] LABS: ASPARTATE AMINOTRANSFERASE 20 U/L (15-37); HCG,QUANTITATIVE 1 mIU/mL (0-6); TOTAL PROTEIN, SERUM 6.5 g/dL (6.4-8.2)
[2025-04-14] MEDS: MORPHINE SULFATE 4 MG/ML SYRINGE IVP ONE (19:17)
[2025-04-14 19:39] LABS: APPEARANCE,URINE CLEAR (CLEAR); GLUCOSE, URINE (UA) >=1000 mg/dL (NEGATIVE); LEUKOCYTE ESTERASE ,URINE NEGATIVE (NEGATIVE); NITRATE,URINE NEGATIVE (NEGATIVE); OCCULT BLOOD,URINE NEGATIVE (NEGATIVE); SPECIFIC GRAVITIY, URINE 1.016 (1.003-1.030)
[2025-04-14] MEDS ORDERED: IOHEXOL 350 MG/ML 100 ML VIAL ONE (19:48)
[2025-04-14] MEDS ORDERED: SODIUM CHLORIDE 0.9% 100 ML ONE (19:48)
[2025-04-14] MEDS ORDERED: 0.9% SODIUM CHLORIDE 10 ML SYRINGE IVP ONE (19:48)
[2025-04-14 19:55] LABS: SQUAMOUS EPITHELIAL CELL,UR Few /LPF (None Seen)
[2025-04-14 22:53] VITALS: BP 154/113; PULSE 102; RESP 18; TEMP 98.5; O2SAT 98
== END 2025-04-14 23:31 | disposition home or self-care (01) ==
LOC: EMS 17:08
DX: R10.13 Epigastric pain (principal); E11.9 Type 2 diabetes mellitus without complications; E78.00 Pure hypercholesterolemia, unspecified; F20.9 Schizophrenia, unspecified; F10.90 Alcohol use, unspecified, uncomplicated; I10 Essential (primary) hypertension; N89.8 Other specified noninflammatory disorders of vagina; Z90.49 Acquired absence of other specified parts of digestive tract; Z90.411 Acquired partial absence of pancreas; Z87.19 Personal history of other diseases of the digestive system; Z79.899 Other long term (current) drug therapy; Z98.890 Other specified postprocedural states; Y90.9 Presence of alcohol in blood, level not specified
CPT/HCPCS: 99285; 74177; 96374; 96375; 80048; 80076; 81001; 83690; 84702; 85025; 36415; Q9967; J2270; J2405; J7030; J7050

== ENCOUNTER 2025-04-18 22:45 | Emergency (ER) | payer MEDICAID ==
[~2025-04-18] VITALS: Ht 162.6 cm; Wt 60.0 kg
[2025-04-18 22:53] VITALS: TEMP 97.9
[2025-04-18 23:48] LABS: PLATELET COUNT (AUTO) 147 K/uL (150-450); RED BLOOD CELL COUNT(AUTO) 3.85 MIL/uL (4.00-5.20); RED CELL DISTRIBUTION WIDTH 14.2 % (11.5-14.5); WHITE BLOOD COUNT (AUTO) 6.0 K/uL (4.5-11.0)
[2025-04-19] LABS: ASPARTATE AMINOTRANSFERASE 31 U/L (15-37); TOTAL PROTEIN, SERUM 6.2 g/dL (6.4-8.2)
[2025-04-19 00:01] LABS: CALCIUM, TOTAL 8.3 mg/dL (8.8-10.5); CREATININE 0.68 mg/dL (0.60-1.30); GLOMERULAR FILTR. RATE CALC > 60 mL/min (>60); SODIUM SERUM 136 mmol/L (136-145); UREA NITROGEN, BLOOD 6 mg/dL (7-18)
[2025-04-19 00:05] LABS: GLUCOSE,RANDOM 455 mg/dL (70-110)
[2025-04-19] MEDS: INSULIN LISPRO 100 UNITS/ML SQ ONE (00:35)
[2025-04-19 01:56] LABS: GLUCOMETER DEV NAME(LOC) ERT.7; GLUCOSE,POINT OF CARE 358 MG/DL (70-110)
[2025-04-19] MEDS: HYDROCODONE/ACETAMINOPHEN 10-325 MG TABLET PO ONE (02:53)
[2025-04-19] MEDS: GABAPENTIN 300 MG CAPSULE PO ONE (02:54)
[2025-04-19 04:44] VITALS: BP 119/97; PULSE 89; RESP 17; O2SAT 96
[2025-04-19 05:28] LABS: APPEARANCE,URINE CLEAR (CLEAR); GLUCOSE, URINE (UA) >=1000 mg/dL (NEGATIVE); LEUKOCYTE ESTERASE ,URINE NEGATIVE (NEGATIVE); NITRATE,URINE NEGATIVE (NEGATIVE); OCCULT BLOOD,URINE NEGATIVE (NEGATIVE); SPECIFIC GRAVITIY, URINE 1.020 (1.003-1.030)
[2025-04-19] MEDS: ACETAMINOPHEN 325 MG TABLET PO ONE (05:42)
[2025-04-19 06:22] LABS: SQUAMOUS EPITHELIAL CELL,UR Few /LPF (None Seen)
== END 2025-04-19 05:44 | disposition home or self-care (01) ==
LOC: EMS 22:47
DX: R10.9 Unspecified abdominal pain (principal); G89.29 Other chronic pain; E11.65 Type 2 diabetes mellitus with hyperglycemia; E78.00 Pure hypercholesterolemia, unspecified; F20.9 Schizophrenia, unspecified; F31.9 Bipolar disorder, unspecified; I10 Essential (primary) hypertension; Z90.49 Acquired absence of other specified parts of digestive tract; Z87.19 Personal history of other diseases of the digestive system; Z90.411 Acquired partial absence of pancreas; Z79.899 Other long term (current) drug therapy
CPT/HCPCS: 80048; 80076; 81001; 82962; 83690; 85025; 93005; 96372; 99285; J1815

== ENCOUNTER 2025-04-19 16:50 | Emergency (ER) | payer MEDICAID ==
[~2025-04-19] VITALS: Ht 160 cm; Wt 54.5 kg
[2025-04-19 17:10] VITALS: BP 113/76; PULSE 108; RESP 12; TEMP 98.2; O2SAT 96
[2025-04-19] MEDS: HYDROCODONE/ACETAMINOPHEN 5-325 MG TABLET PO ONE (18:19)
[2025-04-19] MEDS: GABAPENTIN 300 MG CAPSULE PO ONE (18:19)
[2025-04-19] MEDS: ACETAMINOPHEN 500 MG TABLET PO ONE (18:19)
[2025-04-19] MEDS: INSULIN REGULAR, HUMAN 100 UNITS/ML SQ ONE (18:20)
== END 2025-04-19 18:21 | disposition left against medical advice (07) ==
LOC: EMS 17:02
DX: M25.571 Pain in right ankle and joints of right foot (principal); F31.9 Bipolar disorder, unspecified; E11.65 Type 2 diabetes mellitus with hyperglycemia; E78.00 Pure hypercholesterolemia, unspecified; I10 Essential (primary) hypertension; F20.9 Schizophrenia, unspecified; Z88.5 Allergy status to narcotic agent; Z79.84 Long term (current) use of oral hypoglycemic drugs; Z90.411 Acquired partial absence of pancreas; Z90.49 Acquired absence of other specified parts of digestive tract; Z79.899 Other long term (current) drug therapy
CPT/HCPCS: 99283; Z7502

== ENCOUNTER 2025-04-23 17:21 | Emergency (ER) | payer MEDICAID ==
[~2025-04-23] VITALS: Ht 160 cm; Wt 58.2 kg
[2025-04-23 17:25] VITALS: BP 119/87; PULSE 110; RESP 20; TEMP 98.5; O2SAT 97
[2025-04-23 17:46] LABS: GLUCOMETER DEV NAME(LOC) ER.7; GLUCOSE,POINT OF CARE 381 MG/DL (70-110)
[2025-04-23 18:04] LABS: COVID AG,FIA SOURCE NASAL SWAB
[2025-04-23 18:09] LABS: PLATELET COUNT (AUTO) 164 K/uL (150-450); RED BLOOD CELL COUNT(AUTO) 3.92 MIL/uL (4.00-5.20); RED CELL DISTRIBUTION WIDTH 14.5 % (11.5-14.5); WHITE BLOOD COUNT (AUTO) 8.0 K/uL (4.5-11.0)
[2025-04-23 18:13] LABS: CALCIUM, TOTAL 7.9 mg/dL (8.8-10.5); CREATININE 0.72 mg/dL (0.60-1.30); GLOMERULAR FILTR. RATE CALC > 60 mL/min (>60); GLUCOSE,RANDOM 386 mg/dL (70-110); SODIUM SERUM 135 mmol/L (136-145); UREA NITROGEN, BLOOD 5 mg/dL (7-18)
[2025-04-23 18:14] LABS: PH,URINE DRUG SCREEN 6.5 (5.0-8.0)
[2025-04-23 18:20] LABS: ALCOHOL, URINE DRUG SCREEN POSITIVE (NEGATIVE); AMPHET/METH SCREEN,URINE NEGATIVE (NEGATIVE); BARBITURATE SCREEN, URINE NEGATIVE (NEGATIVE); CANNABINOID SCREEN,URINE NEGATIVE (NEGATIVE); COCAINE SCREEN,URINE NEGATIVE (NEGATIVE); METHADONE SCREEN, URINE NEGATIVE (NEGATIVE)
[2025-04-23 18:28] LABS: SARS-COV2 (COVID) ANTIGEN,FIA Negative (Negative)
[2025-04-23] MEDS: SODIUM CHLORIDE 0.9% 1,000 ML IV ONE (18:39)
[2025-04-23] MEDS: KETOROLAC TROMETHAMINE 30 MG/ML VIAL IVP ONE (18:39)
[2025-04-23] MEDS: INSULIN REGULAR, HUMAN 100 UNITS/ML IVP ONE (18:46)
[2025-04-23] MEDS: ACETAMINOPHEN 325 MG TABLET PO ONE (19:49)
[2025-04-23 20:01] LABS: GLUCOMETER DEV NAME(LOC) ERT.7; GLUCOSE,POINT OF CARE 198 MG/DL (70-110)
== END 2025-04-23 20:13 | disposition home or self-care (01) ==
LOC: EMS 17:21
DX: M79.671 Pain in right foot (principal); E11.65 Type 2 diabetes mellitus with hyperglycemia; F31.9 Bipolar disorder, unspecified; F20.9 Schizophrenia, unspecified; E78.00 Pure hypercholesterolemia, unspecified; I10 Essential (primary) hypertension; Z90.49 Acquired absence of other specified parts of digestive tract; Z90.411 Acquired partial absence of pancreas; Z79.899 Other long term (current) drug therapy; Z98.890 Other specified postprocedural states; Z88.5 Allergy status to narcotic agent; Z20.822 Contact with and (suspected) exposure to COVID-19
CPT/HCPCS: 99284; 96374; 96361; 96375; 87426; 80048; 82962; 84703; 85025; 36415; 73630; 80307; J1885; G0480; J1815; J7030

== ENCOUNTER 2025-05-03 06:15 | Emergency (ER) | payer MEDICAID ==
[~2025-05-03] VITALS: Ht 160 cm; Wt 58.2 kg
[2025-05-03 06:41] VITALS: TEMP 97.9
[2025-05-03] MEDS ORDERED: IOHEXOL 350 MG/ML 100 ML VIAL ONE (07:31)
[2025-05-03] MEDS ORDERED: SODIUM CHLORIDE 0.9% 100 ML ONE (07:31)
[2025-05-03] MEDS ORDERED: 0.9% SODIUM CHLORIDE 10 ML SYRINGE IVP ONE (07:31)
[2025-05-03 07:41] LABS: PLATELET COUNT (AUTO) 157 K/uL (150-450); RED BLOOD CELL COUNT(AUTO) 3.60 MIL/uL (4.00-5.20); RED CELL DISTRIBUTION WIDTH 14.9 % (11.5-14.5); WHITE BLOOD COUNT (AUTO) 11.2 K/uL (4.5-11.0)
[2025-05-03 07:48] LABS: CALCIUM, TOTAL 8.3 mg/dL (8.8-10.5); CREATININE 0.72 mg/dL (0.60-1.30); GLOMERULAR FILTR. RATE CALC > 60 mL/min (>60); GLUCOSE,RANDOM 311 mg/dL (70-110); SODIUM SERUM 136 mmol/L (136-145); UREA NITROGEN, BLOOD 7 mg/dL (7-18)
[2025-05-03] MEDS: ONDANSETRON HCL 4 MG/2 ML VIAL IVP ONE (07:51)
[2025-05-03] MEDS: FAMOTIDINE 20 MG/2 ML VIAL IVP ONE (07:51)
[2025-05-03] MEDS: MORPHINE SULFATE 2 MG/ML SYRINGE IVP ONE ×2 (07:52→09:21)
[2025-05-03 07:54] LABS: ASPARTATE AMINOTRANSFERASE 21 U/L (15-37); TOTAL PROTEIN, SERUM 6.6 g/dL (6.4-8.2)
[2025-05-03 09:38] LABS: APPEARANCE,URINE CLEAR (CLEAR); GLUCOSE, URINE (UA) >=1000 mg/dL (NEGATIVE); LEUKOCYTE ESTERASE ,URINE NEGATIVE (NEGATIVE); NITRATE,URINE NEGATIVE (NEGATIVE); OCCULT BLOOD,URINE NEGATIVE (NEGATIVE); SPECIFIC GRAVITIY, URINE 1.030 (1.003-1.030)
[2025-05-03 09:49] LABS: SQUAMOUS EPITHELIAL CELL,UR Few /LPF (None Seen)
[2025-05-03 09:55] VITALS: BP 153/101; PULSE 89; RESP 20; O2SAT 98
== END 2025-05-03 10:38 | disposition home or self-care (01) ==
LOC: EMS 06:15
DX: R10.33 Periumbilical pain (principal); R11.0 Nausea; R19.7 Diarrhea, unspecified; E11.9 Type 2 diabetes mellitus without complications; I10 Essential (primary) hypertension; E78.00 Pure hypercholesterolemia, unspecified; F20.9 Schizophrenia, unspecified; F31.9 Bipolar disorder, unspecified; Z79.84 Long term (current) use of oral hypoglycemic drugs; Z87.19 Personal history of other diseases of the digestive system; Z90.411 Acquired partial absence of pancreas; Z90.49 Acquired absence of other specified parts of digestive tract; Z79.899 Other long term (current) drug therapy
CPT/HCPCS: 99285; 74177; 96374; 96375; 80048; 80076; 81001; 83690; 84703; 85025; 36415; 96376; Q9967; J3490; J2270; J2405; J7050

== ENCOUNTER 2025-05-13 15:46 | Emergency (ER) | payer MEDICAID ==
[~2025-05-13] VITALS: Ht 160 cm; Wt 58.2 kg
[2025-05-13 15:53] VITALS: BP 110/76; PULSE 121; RESP 18; TEMP 99.9; O2SAT 100
[2025-05-13 16:30] LABS: PLATELET COUNT (AUTO) 188 K/uL (150-450); RED BLOOD CELL COUNT(AUTO) 3.80 MIL/uL (4.00-5.20); RED CELL DISTRIBUTION WIDTH 14.1 % (11.5-14.5); WHITE BLOOD COUNT (AUTO) 9.5 K/uL (4.5-11.0)
[2025-05-13] MEDS ORDERED: FAMOTIDINE 20 MG/2 ML VIAL IVP ONE (16:30)
[2025-05-13] MEDS ORDERED: MORPHINE SULFATE 2 MG/ML SYRINGE IVP ONE (16:30)
[2025-05-13] MEDS ORDERED: ONDANSETRON HCL 4 MG/2 ML VIAL IVP ONE (16:30)
[2025-05-13 16:44] LABS: CALCIUM, TOTAL 8.6 mg/dL (8.8-10.5); CREATININE 0.67 mg/dL (0.60-1.30); GLOMERULAR FILTR. RATE CALC > 60 mL/min (>60); SODIUM SERUM 135 mmol/L (136-145); UREA NITROGEN, BLOOD 13 mg/dL (7-18)
[2025-05-13 16:45] LABS: ASPARTATE AMINOTRANSFERASE 13 U/L (15-37); TOTAL PROTEIN, SERUM 7.0 g/dL (6.4-8.2)
[2025-05-13 16:48] LABS: GLUCOSE,RANDOM 532 mg/dL (70-110)
[2025-05-13] MEDS ORDERED: ACETAMINOPHEN 500 MG TABLET PO ONE (17:00)
[2025-05-13] MEDS ORDERED: POTASSIUM CHL 10 MEQ/WATER 50 ML IV ONE (17:00)
[2025-05-13] MEDS: SODIUM CHLORIDE 0.9% 1,000 ML IV ONE (17:51)
[2025-05-13] MEDS: INSULIN REGULAR, HUMAN 100 UNITS/ML IVP ONE (18:02)
[2025-05-13 18:49] LABS: COVID AG,FIA SOURCE NASAL SWAB
[2025-05-13 19:07] LABS: INFLUENZA TYPE A NEGATIVE FOR TYPE A (NEGATIVE); INFLUENZA TYPE B NEGATIVE FOR TYPE B (NEGATIVE); SARS-COV2 (COVID) ANTIGEN,FIA Negative (Negative)
[2025-05-13] MEDS: POTASSIUM CHLORIDE 20 MEQ ER TABLET PO ONE (20:40)
== END 2025-05-13 20:46 | disposition home or self-care (01) ==
LOC: EMS 15:46
DX: G89.29 Other chronic pain (principal); R10.9 Unspecified abdominal pain; E11.65 Type 2 diabetes mellitus with hyperglycemia; E78.00 Pure hypercholesterolemia, unspecified; F20.9 Schizophrenia, unspecified; F31.9 Bipolar disorder, unspecified; I10 Essential (primary) hypertension; F17.210 Nicotine dependence, cigarettes, uncomplicated; Z87.19 Personal history of other diseases of the digestive system; Z90.411 Acquired partial absence of pancreas; Z90.49 Acquired absence of other specified parts of digestive tract; Z79.899 Other long term (current) drug therapy; Z20.822 Contact with and (suspected) exposure to COVID-19
CPT/HCPCS: 99283; 96374; 96361; 87426; 80048; 80076; 82962; 84703; 85025; 87804; 36415; J1815; J7030

== ENCOUNTER 2025-05-21 20:13 | Emergency (ER) | payer MEDICAID ==
[~2025-05-21] VITALS: Ht 172.7 cm; Wt 63.4 kg
[2025-05-21 20:20] VITALS: TEMP 98
[2025-05-21 20:30] LABS: GLUCOMETER DEV NAME(LOC) ERT.7; GLUCOSE,POINT OF CARE 439 MG/DL (70-110)
[2025-05-21] MEDS: SODIUM CHLORIDE 0.9% 1,000 ML IV ONE (20:30)
[2025-05-21 21:04] LABS: CALCIUM, TOTAL 7.7 mg/dL (8.8-10.5); CREATININE 0.81 mg/dL (0.60-1.30); GLOMERULAR FILTR. RATE CALC > 60 mL/min (>60); PLATELET COUNT (AUTO) 160 K/uL (150-450); RED BLOOD CELL COUNT(AUTO) 3.34 MIL/uL (4.00-5.20); RED CELL DISTRIBUTION WIDTH 14.6 % (11.5-14.5); SODIUM SERUM 137 mmol/L (136-145); UREA NITROGEN, BLOOD 7 mg/dL (7-18); WHITE BLOOD COUNT (AUTO) 7.3 K/uL (4.5-11.0)
[2025-05-21] MEDS: SODIUM CHLORIDE 0.9% 800 ML IV ONE (21:04)
[2025-05-21 21:05] LABS: ALCOHOL, BLOOD (SERUM) 44 mg/dL (0-10)
[2025-05-21 21:07] LABS: GLUCOSE,RANDOM 424 mg/dL (70-110)
[2025-05-21 21:08] LABS: ASPARTATE AMINOTRANSFERASE 14 U/L (15-37); TOTAL PROTEIN, SERUM 6.0 g/dL (6.4-8.2)
[2025-05-21 21:14] LABS: TROPONIN I-HIGH SENSITIVITY 6 ng/L (<51)
[2025-05-21] MEDS ORDERED: DEXTROSE 50%-WATER 25 GM/50 ML SYRINGE IVP PRN (21:15)
[2025-05-21] MEDS ORDERED: INSULIN REGULAR, HUMAN 100 UNITS/ML IVP PRN (21:15)
[2025-05-21] MEDS ORDERED: POTASSIUM CHL 20 MEQ/0.45% NS 1,000 ML IV PRN (21:15)
[2025-05-21] MEDS ORDERED: SODIUM CHLORIDE 0.9% 1,000 ML IV SCH (21:15)
[2025-05-21] MEDS ORDERED: INSULIN REGULAR, HUMAN 100 UNITS in SODIUM CHLORIDE 0.9% 99 ML IV PRN (21:15)
[2025-05-21] MEDS ORDERED: SODIUM CHLORIDE 0.45% 1,000 ML IV PRN (21:15)
[2025-05-21] MEDS ORDERED: POTASSIUM CHLORIDE 40 MEQ in SODIUM CHLORIDE 0.45% 1,000 ML IV PRN (21:15)
[2025-05-21] MEDS ORDERED: ONDANSETRON HCL 4 MG/2 ML VIAL IVP PRN (21:15)
[2025-05-21] MEDS ORDERED: ACETAMINOPHEN 325 MG TABLET PO PRN (21:15)
[2025-05-21] MEDS ORDERED: DEXTROSE 5%-0.45% SODIUM CHL 1,000 ML IV PRN (21:15)
[2025-05-21 21:17] LABS: LACTIC ACID 4.3 mmol/L (0.4-2.0)
[2025-05-21 21:29] LABS: CREATINE KINASE, TOTAL ONLY 111 U/L (26-192)
[2025-05-21] MEDS: INSULIN REGULAR, HUMAN 100 UNITS/ML IVP ONE ×2 (21:44→21:49)
[2025-05-21] MEDS: CefTRIAXone 1 GM/DEXTROSE 50 ML IV ONE (21:51)
[2025-05-21] MEDS ORDERED: CHLORHEXIDINE GLUCONATE 2% TOWELETTE [2'S/6'S] TP SCH (22:00)
[2025-05-21] MEDS: POTASSIUM CHLORIDE 10% 40 MEQ/30 ML LIQUID UDCUP PO ONE (22:02)
[2025-05-21 22:56] LABS: GLUCOMETER DEV NAME(LOC) ERT.7; GLUCOSE,POINT OF CARE 147 MG/DL (70-110)
[2025-05-22 00:25] LABS: GLUCOMETER DEV NAME(LOC) ERT.7; GLUCOSE,POINT OF CARE 119 MG/DL (70-110)
[2025-05-22 05:40] VITALS: BP 110/75; PULSE 89; RESP 16; O2SAT 97
[2025-05-22 07:06] LABS: ASPARTATE AMINOTRANSFERASE 22 U/L (15-37); CALCIUM, TOTAL 8.6 mg/dL (8.8-10.5); CREATININE 0.44 mg/dL (0.60-1.30); GLOMERULAR FILTR. RATE CALC > 60 mL/min (>60); GLUCOSE,RANDOM 141 mg/dL (70-110); PHOSPHORUS 4.4 mg/dL (2.5-4.9); SODIUM SERUM 139 mmol/L (136-145); TOTAL PROTEIN, SERUM 6.3 g/dL (6.4-8.2); UREA NITROGEN, BLOOD 5 mg/dL (7-18)
[2025-05-22 07:13] LABS: PLATELET COUNT (AUTO) 182 K/uL (150-450); RED BLOOD CELL COUNT(AUTO) 3.61 MIL/uL (4.00-5.20); RED CELL DISTRIBUTION WIDTH 14.3 % (11.5-14.5); WHITE BLOOD COUNT (AUTO) 7.8 K/uL (4.5-11.0)
[2025-05-22] MEDS ORDERED: DOCUSATE SODIUM 100 MG CAPSULE PO SCH (09:00)
[2025-05-23] MEDS ORDERED: HEPARIN SODIUM,PORCINE 5,000 UNITS/ML VIAL SQ SCH
== END 2025-05-22 06:47 | disposition admitted as inpatient to this hospital (09) ==
LOC: EMS 20:13 → EDH 21:08 → UNDOADMIN 21:08
DX: G93.41 Metabolic encephalopathy (principal); R53.83 Other fatigue; R53.1 Weakness; R41.82 Altered mental status, unspecified; I95.9 Hypotension, unspecified; F31.9 Bipolar disorder, unspecified; E78.00 Pure hypercholesterolemia, unspecified; F20.9 Schizophrenia, unspecified; E11.65 Type 2 diabetes mellitus with hyperglycemia; G89.29 Other chronic pain; I10 Essential (primary) hypertension; F17.210 Nicotine dependence, cigarettes, uncomplicated; Z79.4 Long term (current) use of insulin; Z79.899 Other long term (current) drug therapy; Z87.19 Personal history of other diseases of the digestive system; Z90.411 Acquired partial absence of pancreas; Z90.49 Acquired absence of other specified parts of digestive tract; Z53.29 Procedure and treatment not carried out because of patient's decision for other reasons
CPT/HCPCS: 99285; 70450; 96365; 76705; 96361; 71045; 96375; 80053; 82009; 82140; 82550; 82962; 83735; 83880; 84100; 84484; 84703; 85025; 85610; 85730; 87040; 72125; 93005; 80048; 80076; 83605; 36415; G0480; J0696; J1815; J7030; J7050

== ENCOUNTER 2025-05-26 02:20 | Emergency (ER) | payer MEDICAID ==
[~2025-05-26] VITALS: Ht 160 cm; Wt 63.6 kg
[2025-05-26 02:51] VITALS: TEMP 98.6
[2025-05-26 04:50] VITALS: BP 141/96; PULSE 109; RESP 16; O2SAT 99
[2025-05-26] MEDS: SODIUM CHLORIDE 0.9% 1,000 ML IV ONE (06:02)
[2025-05-26] MEDS: KETOROLAC TROMETHAMINE 30 MG/ML VIAL IVP ONE (06:19)
[2025-05-26] MEDS: ONDANSETRON HCL 4 MG/2 ML VIAL IVP ONE (06:19)
[2025-05-26] MEDS: LIDOCAINE 5% TRANSDERMAL PATCH TD ONE (06:20)
== END 2025-05-26 06:58 | disposition left against medical advice (07) ==
LOC: EMS 02:21
DX: R10.9 Unspecified abdominal pain (principal); E11.65 Type 2 diabetes mellitus with hyperglycemia; E78.00 Pure hypercholesterolemia, unspecified; F20.9 Schizophrenia, unspecified; F31.9 Bipolar disorder, unspecified; I10 Essential (primary) hypertension; R11.0 Nausea; F17.210 Nicotine dependence, cigarettes, uncomplicated; Z87.19 Personal history of other diseases of the digestive system; Z90.411 Acquired partial absence of pancreas; Z90.49 Acquired absence of other specified parts of digestive tract; Z79.899 Other long term (current) drug therapy
CPT/HCPCS: 99284; 96374; 96375; 82962; 93005; J1885; J2405

== ENCOUNTER 2025-06-13 02:06 | Emergency (ER) | payer MEDICAID ==
[~2025-06-13] VITALS: Ht 160 cm; Wt 63.6 kg
[2025-06-13 02:39] VITALS: BP 115/89; PULSE 107; RESP 18; TEMP 97.9; O2SAT 100
[2025-06-13 03:09] LABS: PLATELET COUNT (AUTO) 162 K/uL (150-450); RED BLOOD CELL COUNT(AUTO) 4.29 MIL/uL (4.00-5.20); RED CELL DISTRIBUTION WIDTH 14.1 % (11.5-14.5); WHITE BLOOD COUNT (AUTO) 8.1 K/uL (4.5-11.0)
[2025-06-13 03:16] LABS: CALCIUM, TOTAL 8.4 mg/dL (8.8-10.5); CREATININE 0.58 mg/dL (0.60-1.30); GLOMERULAR FILTR. RATE CALC > 60 mL/min (>60); SODIUM SERUM 137 mmol/L (136-145); UREA NITROGEN, BLOOD 8 mg/dL (7-18)
[2025-06-13 03:20] LABS: GLUCOSE,RANDOM 449 mg/dL (70-110)
[2025-06-13 03:27] LABS: HCG,QUANTITATIVE < 1 mIU/mL (0-6)
[2025-06-13] MEDS: HYDROCODONE/ACETAMINOPHEN 5-325 MG TABLET PO ONE (03:49)
[2025-06-13] MEDS: INSULIN REGULAR, HUMAN 100 UNITS/ML SQ ONE (03:49)
== END 2025-06-13 04:07 | disposition home or self-care (01) ==
LOC: EMS 02:08
DX: K43.9 Ventral hernia without obstruction or gangrene (principal); R10.84 Generalized abdominal pain; R11.0 Nausea; E11.65 Type 2 diabetes mellitus with hyperglycemia; E78.00 Pure hypercholesterolemia, unspecified; F20.9 Schizophrenia, unspecified; F31.9 Bipolar disorder, unspecified; I10 Essential (primary) hypertension; F17.210 Nicotine dependence, cigarettes, uncomplicated; Z87.19 Personal history of other diseases of the digestive system; Z90.411 Acquired partial absence of pancreas; Z90.49 Acquired absence of other specified parts of digestive tract; Z79.84 Long term (current) use of oral hypoglycemic drugs; Z79.899 Other long term (current) drug therapy
CPT/HCPCS: 99283; 80048; 83690; 84702; 85025; 36415; 96372; J1815

== ENCOUNTER 2025-07-02 01:32 | Emergency (ER) | payer MEDICAID ==
[~2025-07-02] VITALS: Ht 160 cm; Wt 63.0 kg
[2025-07-02 02:26] VITALS: BP 142/102; PULSE 104; RESP 16; TEMP 98.1; O2SAT 98
[2025-07-02 02:43] LABS: PLATELET COUNT (AUTO) 140 K/uL (150-450); RED BLOOD CELL COUNT(AUTO) 4.32 MIL/uL (4.00-5.20); RED CELL DISTRIBUTION WIDTH 15.1 % (11.5-14.5); WHITE BLOOD COUNT (AUTO) 8.3 K/uL (4.5-11.0)
[2025-07-02 02:52] LABS: CALCIUM, TOTAL 7.6 mg/dL (8.8-10.5); CREATININE 0.48 mg/dL (0.60-1.30); GLOMERULAR FILTR. RATE CALC > 60 mL/min (>60); GLUCOSE,RANDOM 74 mg/dL (70-110); SODIUM SERUM 139 mmol/L (136-145); UREA NITROGEN, BLOOD 10 mg/dL (7-18)
[2025-07-02 03:02] LABS: ALCOHOL, BLOOD (SERUM) < 3 mg/dL (0-10)
[2025-07-02 03:04] LABS: ASPARTATE AMINOTRANSFERASE 28 U/L (15-37); HCG,QUANTITATIVE 1 mIU/mL (0-6); TOTAL PROTEIN, SERUM 7.1 g/dL (6.4-8.2)
== END 2025-07-02 05:30 | disposition left against medical advice (07) ==
LOC: EMS 01:45
DX: R10.9 Unspecified abdominal pain (principal); Z53.21 Procedure and treatment not carried out due to patient leaving prior to being seen by health care provider
CPT/HCPCS: 99281; 80048; 80076; 83690; 84702; 85025; 36415; G0480

== ENCOUNTER 2025-07-06 01:04 | Emergency (ER) | payer MEDICAID ==
[~2025-07-06] VITALS: Ht 160 cm; Wt 63.6 kg
[2025-07-06 01:25] VITALS: TEMP 98.6
[2025-07-06 02:05] VITALS: BP 113/87; PULSE 112; RESP 16; O2SAT 99
[2025-07-06 02:13] LABS: PLATELET COUNT (AUTO) 154 K/uL (150-450); RED BLOOD CELL COUNT(AUTO) 4.48 MIL/uL (4.00-5.20); RED CELL DISTRIBUTION WIDTH 14.9 % (11.5-14.5); WHITE BLOOD COUNT (AUTO) 9.3 K/uL (4.5-11.0)
[2025-07-06 02:22] LABS: CALCIUM, TOTAL 8.2 mg/dL (8.8-10.5); CREATININE 0.58 mg/dL (0.60-1.30); GLOMERULAR FILTR. RATE CALC > 60 mL/min (>60); GLUCOSE,RANDOM 250 mg/dL (70-110); SODIUM SERUM 139 mmol/L (136-145); UREA NITROGEN, BLOOD 14 mg/dL (7-18)
[2025-07-06] MEDS: LOPERAMIDE HCL 2 MG CAPSULE PO ONE (02:35)
[2025-07-06] MEDS ORDERED: SODIUM CHLORIDE 0.9% 100 ML ONE (02:47)
[2025-07-06] MEDS ORDERED: IOHEXOL 350 MG/ML 100 ML VIAL ONE (02:47)
== END 2025-07-06 04:30 | disposition home or self-care (01) ==
LOC: EMS 01:37
DX: K59.00 Constipation, unspecified (principal); G89.29 Other chronic pain; R10.32 Left lower quadrant pain; R11.0 Nausea; R19.7 Diarrhea, unspecified; F31.9 Bipolar disorder, unspecified; F17.210 Nicotine dependence, cigarettes, uncomplicated; I10 Essential (primary) hypertension; F20.9 Schizophrenia, unspecified; E11.65 Type 2 diabetes mellitus with hyperglycemia; E78.00 Pure hypercholesterolemia, unspecified; Z87.19 Personal history of other diseases of the digestive system; Z90.411 Acquired partial absence of pancreas; Z90.49 Acquired absence of other specified parts of digestive tract; Z79.899 Other long term (current) drug therapy
CPT/HCPCS: 99285; 74177; 80048; 82150; 82962; 83690; 85025; 36415; Q9967; J7050

== ENCOUNTER 2025-07-16 01:09 | Emergency (ER) | payer MEDICAID ==
[~2025-07-16] VITALS: Ht 160 cm; Wt 56.8 kg
[2025-07-16 01:15] VITALS: TEMP 98.1
[2025-07-16 01:48] LABS: PLATELET COUNT (AUTO) 169 K/uL (150-450); RED BLOOD CELL COUNT(AUTO) 4.46 MIL/uL (4.00-5.20); RED CELL DISTRIBUTION WIDTH 15.6 % (11.5-14.5); WHITE BLOOD COUNT (AUTO) 8.2 K/uL (4.5-11.0)
[2025-07-16 01:54] LABS: COVID AG,FIA SOURCE NASAL SWAB
[2025-07-16 02:01] LABS: CALCIUM, TOTAL 8.4 mg/dL (8.8-10.5); CREATININE 0.58 mg/dL (0.60-1.30); GLOMERULAR FILTR. RATE CALC > 60 mL/min (>60); GLUCOSE,RANDOM 211 mg/dL (70-110); SODIUM SERUM 137 mmol/L (136-145); UREA NITROGEN, BLOOD 12 mg/dL (7-18)
[2025-07-16 02:04] LABS: INFLUENZA TYPE A NEGATIVE FOR TYPE A (NEGATIVE); INFLUENZA TYPE B NEGATIVE FOR TYPE B (NEGATIVE); SARS-COV2 (COVID) ANTIGEN,FIA Negative (Negative)
[2025-07-16 02:06] LABS: ASPARTATE AMINOTRANSFERASE 12 U/L (15-37); HCG,QUANTITATIVE 1 mIU/mL (0-6); TOTAL PROTEIN, SERUM 7.0 g/dL (6.4-8.2)
[2025-07-16 02:14] LABS: RAPID GROUP A STREP PRELIM. NEGATIVE (NEGATIVE)
[2025-07-16] MEDS: METOCLOPRAMIDE HCL 5 MG/ML 2 ML VIAL IVP ONE (03:28)
[2025-07-16] MEDS: MORPHINE SULFATE 4 MG/ML SYRINGE IVP ONE (03:28)
[2025-07-16] MEDS: SODIUM CHLORIDE 0.9% 1,000 ML IV ONE (03:28)
[2025-07-16 07:00] VITALS: BP 121/74; PULSE 99; RESP 16; O2SAT 99
[2025-07-16] MEDS: MAGNESIUM CITRATE [LEMON] 300 ML ORAL SOLUTION PO ONE (08:04)
[2025-07-16] MEDS: POTASSIUM CHLORIDE 20 MEQ ER TABLET PO ONE (08:05)
== END 2025-07-16 08:17 | disposition home or self-care (01) ==
LOC: EMS 01:19
DX: R10.84 Generalized abdominal pain (principal); F20.9 Schizophrenia, unspecified; E11.9 Type 2 diabetes mellitus without complications; E78.00 Pure hypercholesterolemia, unspecified; I10 Essential (primary) hypertension; F31.9 Bipolar disorder, unspecified; K86.1 Other chronic pancreatitis; F17.210 Nicotine dependence, cigarettes, uncomplicated; R10.20 Pelvic and perineal pain unspecified side; Z79.84 Long term (current) use of oral hypoglycemic drugs; Z79.899 Other long term (current) drug therapy; Z87.19 Personal history of other diseases of the digestive system; Z90.411 Acquired partial absence of pancreas; Z90.49 Acquired absence of other specified parts of digestive tract; Z20.822 Contact with and (suspected) exposure to COVID-19
CPT/HCPCS: 99285; 74176; 96374; 96361; 96375; 87426; 80048; 80076; 82962; 83690; 84702; 85025; 87081; 87430; 87804; 36415; J2765; J2270; J7030